=== PATIENT | male | born 1960 ===

== ENCOUNTER 2021-07-19 09:15 | Outpatient (REF) | payer BC, SELFPAY ==
[2021-07-19 10:40] LABS: Hematocrit 43.7 % (42-52); Hemoglobin 13.8 g/dl (14.0-18.0); Mean Corpuscular HGB Conc 31.6 g/dl (31.0-36.0); Mean Corpuscular Hemoglobin 30.1 pg (27.0-33.0); Mean Corpuscular Volume 95.2 fL (80-98); Mean Platelet Volume 9.7 fL (9.4-12.4); Platelet Count 209 X10*3/uL (160-400); Red Blood Count 4.59 X10*6/uL (4.60-5.80); Red Cell Distribution Width 11.6 % (11.0-16.0); White Blood Count 6.7 X10*3/uL (4.8-10.8)
[2021-07-19 10:43] LABS: Alanine Aminotransferase 19 U/L (0-40); Albumin Level 4.5 g/dL (3.5-5.0); Alkaline Phosphatase 75 U/L (39-117); Anion Gap 13 (12-20); Aspartate Amino Transferase 19 U/L (5-37); Bilirubin Total 0.7 mg/dL (0.0-1.0); Blood Urea Nitrogen 18 mg/dL (9-16); Calcium 9.7 mg/dL (8.4-10.2); Carbon Dioxide 27 mmol/L (22-29); Chloride 106 mmol/L (96-108); Cholesterol 282 mg/dL; Estimated Glomerular Filt Rate 59; Glucose Random 143 mg/dL (60-115); HDL Cholesterol 45 mg/dL; LDL Cholesterol Calculated 190 mg/dl; Potassium 5.4 mmol/L (3.3-5.1); Sodium 141 mmol/L (135-145); Total Protein 7.7 g/dL (6.5-8.0); Triglycerides 236 mg/dL
[2021-07-19 10:44] LABS: Creatinine Urine 209.55 mg/dL; Microalbum/Creatinine Ratio Ur 24.3 ug/mg cr
[2021-07-19 11:05] LABS: Prostate Specific Antigen 0.46 ng/mL (<0.05-4.0); TSH reflex Free T4 3.75 uIU/mL (0.32-4.0)
== END 2021-07-19 09:16 | disposition home or self-care (01) ==
LOC: HO.LAB 09:15
PROVIDERS: PCP Internal Medicine Geriatric Medicine; Visit Provider Internal Medicine Geriatric Medicine
DX: Z12.5 Encounter for screening for malignant neoplasm of prostate (principal); E03.9 Hypothyroidism, unspecified; I25.10 Atherosclerotic heart disease of native coronary artery without angina pectoris; I12.9 Hypertensive chronic kidney disease with stage 1 through stage 4 chronic kidney disease, or unspecified chronic kidney disease; E11.22 Type 2 diabetes mellitus with diabetic chronic kidney disease; N18.9 Chronic kidney disease, unspecified
CPT/HCPCS: 36415; 80053; 80061; 82043; 84153; 84443; 85027

== ENCOUNTER 2021-10-23 13:50 | Emergency (ER) | payer BC, SELFPAY ==
[2021-10-23 19:28] VITALS: BP 179/97; PULSE 60; RESP 18; TEMP 36.8; O2SAT 98; BMI 29.5
[2021-10-23 19:53] VITALS: BP 145/77; PULSE 57; RESP 17; TEMP 35.8; O2SAT 98
--- NOTE | 2021-10-23 20:46 | ED_ITS ---
HPI - Extremity Problem General Chief complaint: Extremity Problem Stated complaint: R ARM PAIN Time Seen by Provider: 10/23/21 19:42 Source: patient Mode of arrival: ambulatory Limitations: no limitations History of Present Illness HPI Narrative: 61-year-old male who presents emergency department for evaluation of right arm pain for 2 days. He states these had an intermittent cramping sensation in his right arm. He states that he gets 3 episodes per day. He states that the episodes last approximately 10 minutes. He states that the episodes are [id number] in intensity. He had no associated symptoms such as neck pain, jaw pain, chest pain, shortness of breath, dyspnea on exertion, swelling or discoloration of the arm, nausea, vomiting, numbness or weakness. He states that he took 1 Tylenol for the pain this did not help. He denies any recent injury. The patient states that he had a stroke and was treated at [facility] 3 years prior. He states that he had a stent placed in his right arm but is unclear why this was done. The patient denies having a cardiac stent or myocardial infarction however uncertain to me if he understands the procedure that he had a [facility]. He denied fever, chills, myalgias or arthralgias. Related Data Previous Rx's Medication Instructions Recorded cyclobenzaprine 10 mg tablet 10 mg PO TID PRN #15 tab 10/23/21 Allergies Allergy/AdvReac Type Severity Reaction Status Date / Time No Known Allergies Allergy Unverified 07/11/20 17:03 [No Known Allergies*] Review of Systems Review of Systems: Yes all other systems are reviewed and are negative [facility] Past Medical History [facility] Narrative: Past medical history: Diabetes mellitus, hypertension, stroke 3 years prior. Past surgical history: Question stent to his right arm. Social history: He denies tobacco use, he occasionally drinks alcohol, he denies drug use. Medical History Diabetes Social History Social History Advance Directives: Yes Advance Directives Information Provided: Yes Advance Directives on File: No Physical Exam Vital Signs: Vital Signs: Last Vital Signs Temp 96.4 F L 10/23/21 19:53 Pulse 57 10/23/21 19:53 Resp 17 10/23/21 19:53 BP 145/77 H 10/23/21 19:53 Pulse Ox 98 10/23/21 19:53 BMI result Body Mass Index 29.5 Const: General: cooperative and no acute distress Orientation/consciousness: oriented to person and oriented to place Limitations: no limitations HENMT: Head: Yes normal to inspection, Yes normocephalic and Yes atraumatic Ears: external ears normal General nose exam: Normal external nose present Face and sinus: Yes normal facial exam Mouth: Normal oral and palatal mucosa present Throat: Yes posterior oropharynx normal Eyes: General: appearance normal, both eyes and all related structures Pupils: Equal, round and reactive pupils present Neck: Neck: Yes normal visual inspection, Yes no lymphadenopathy, Yes trachea midline and Yes supple Chest: Chest palpation & inspection: normal inspection of the chest and normal palpation of entire chest wall Resp: Effort & Inspection: normal respiratory effort and able to speak in complete sentences Auscultation: clear to auscultation bilaterally Cardio: Rate: regular rate Rhythm: regular rhythm Heart sounds: S1 normal heart sound present, S2 normal heart sound present and no murmurs GI: Inspection: Yes normal to inspection Palpation (GI): Soft to palpation, nontender and no guarding Auscultation: normal bowel sounds : General: Yes no CVA tenderness Back/Spine/Pelvis: Back: no CVA tenderness Skin: General skin exam: no rashes or lesions noted Neuro: General: oriented to person and oriented to place Cranial nerves: Yes CN's II-XII intact bilaterally and Yes Equal, round and reactive pupils present Cognition (Neuro): normal cognition Motor exam (neuro): 5/5 motor strength present throughout Extrem: Other: Both upper extremities appear to be normal, there is no swelling, erythema or increased warmth. Patient has normal peripheral pulses. He has full range of motion of all of the joints of both upper extremities with no pain or discomfort. He has no tenderness palpation of the muscles of the upper extremities. Psych: Appearance: grossly normal Speech and movement: Normal speech and movement present Affect: normal affect Attitude: cooperative Thought process: Normal thought process present Thought content: Normal thought content present Course Course Course Narrative: 61-year-old male who presents emergency department for evaluation with cramping in sensation to his right arm that he has had for approximately 2 days. He states that the cramping is intermittent he gets approximately 3 episodes per day lasting approximately 10 minutes. He denies any injury knee has no significant associated symptoms. His vital signs initially revealed an elevated blood pressure of 179/97 and repeat blood pressure was 145/77. At this time, I do not have a clear etiology for the patient's pain, he may be having muscle spasms. Patient was advised to take Tylenol for the pain was prescribe cyclobenzaprine. He was given printed and verbal instructions and discharged home. Discharge Plan Discharge Clinical Impression: Arm pain, right Patient Disposition: Home, Self-Care Instructions: Arm Pain (ED) Additional Instructions: Your examination was normal. At this time I do not have a clear cause for your pain. I do not think that you have an infection or a blood clot of your arm. I do not think that this pain is being caused by your heart or your neck. Take Tylenol (acetaminophen) 500 mg pills, 2 pills every 4 to 6 hours as needed for pain. Take Flexeril (cyclobenzaprine) 10 mg pills, 1 pill every 6-8 hours as needed for pain or spasm. This medication will make you sleepy. Do not drive or work while taking this medication. Follow-up with your doctor in 2 days. Please return to the emergency department if your symptoms get worse or if you develop any symptoms that are concerning to you. Prescriptions: New cyclobenzaprine 10 mg tablet 10 mg PO TID PRN (Reason: pain, muscle spasm) Qty: 15 RF: 0
== END 2021-10-23 21:15 | disposition home or self-care (01) ==
PROVIDERS: Emergency Provider Emergency Medicine Emergency Medical Services; PCP Internal Medicine Geriatric Medicine
DX: M79.601 Pain in right arm (principal)
CPT/HCPCS: 99283; 99284

== ENCOUNTER 2023-08-19 10:18 | Outpatient (REF) | payer BC, SELFPAY ==
[2023-08-19 11:40] LABS: MANUAL DIFF FLAG NO
[2023-08-19 11:42] LABS: Basophils Percent Auto 0.6 % (0-2); Eosinophils Absolute Auto 0.2 X10*3/uL (0.0-0.4); Eosinophils Percent Auto 3.1 % (0-4); Hemoglobin 13.6 g/dl (14.0-18.0); Imm Gran Abs Auto 0.02 X10*3/uL (0.00-0.03); Imm Gran Pct Auto 0.3 % (0.0-0.4); Lymphocytes Absolute Auto 2.3 X10*3/uL (1.2-4.9); Lymphocytes Percent Auto 34.8 % (20-40); Mean Corpuscular HGB Conc 32.4 g/dl (31.0-36.0); Mean Corpuscular Hemoglobin 30.3 pg (27.0-33.0); Mean Corpuscular Volume 93.5 fL (80.0-98.0); Mean Platelet Volume 9.6 fL (9.4-12.4); Monocytes Absolute Auto 0.6 X10*3/uL (0.1-1.2); Monocytes Percent Auto 8.6 % (2-11); Neutrophils Absolute Auto 3.4 x10*3/uL (2.0-8.3); Neutrophils Percent Auto 52.6 % (45-73); Platelet Count 198 X10*3/uL (160-400); Red Blood Count 4.49 X10*6/uL (4.60-5.80); Red Cell Distribution Width 11.8 % (11.0-16.0); White Blood Count 6.5 X10*3/uL (4.8-10.8)
[2023-08-19 11:53] LABS: Appearance Urine Clear; Color Urine Yellow; Glucose Urine UA Negative (Negative); Leukocyte Esterase Urine Trace (Negative); Nitrite Urine Negative (Negative); PH 6.5 (5.0-9.0); UMIC TRIGGER UACC YES; Urine Blood Negative (Negative); Urine Ketones Negative (Negative); Urine Protein Trace mg/dL (Neg-Trace)
[2023-08-19 11:58] LABS: Bacteria Urine None Seen (None Seen); Hyaline Casts Urine 0-2 /LPF (0-2); RBC Urine 0-2 /HPF (0-2); Squamous Epithelial Cell Urine 0-2 /HPF (0-2); WBC Urine 0-5 /HPF (0-5)
[2023-08-19 12:17] LABS: Alanine Aminotransferase 25 U/L (0-40); Albumin Level 4.4 g/dL (3.5-5.0); Alkaline Phosphatase 72 U/L (39-117); Anion Gap 13 (12-20); Aspartate Amino Transferase 24 U/L (5-37); Bilirubin Total 0.8 mg/dL (0.0-1.0); Blood Urea Nitrogen 16 mg/dL (9-16); Calcium 9.8 mg/dL (8.4-10.2); Carbon Dioxide 28 mmol/L (22-29); Chloride 103 mmol/L (96-108); Cholesterol 271 mg/dL (<200); Estimated Glomerular Filt Rate > 60; Glucose Random 130 mg/dL (60-115); HDL Cholesterol 40 mg/dL (>40); LDL Cholesterol Calculated 181 mg/dL (<100); Potassium 4.1 mmol/L (3.3-5.1); Sodium 140 mmol/L (135-145); Triglycerides 252 mg/dL (<150)
[2023-08-19 12:23] LABS: TSH reflex Free T4 5.82 uIU/mL (0.32-4.0)
[2023-08-19 12:25] LABS: Prostate Specific Antigen 0.55 ng/mL (<0.05-4.0)
[2023-08-19 12:59] LABS: Free T4 (Free Thyroxine) 0.78 ng/dL (0.71-1.85)
== END 2023-08-19 10:19 | disposition home or self-care (01) ==
LOC: HO.HHCL 10:18
PROVIDERS: Visit Provider Internal Medicine Geriatric Medicine
DX: Z12.5 Encounter for screening for malignant neoplasm of prostate (principal); I10 Essential (primary) hypertension; E03.9 Hypothyroidism, unspecified; E11.9 Type 2 diabetes mellitus without complications; Z28.20 Immunization not carried out because of patient decision for unspecified reason
CPT/HCPCS: 36415; 80053; 80061; 81001; 84153; 84439; 84443; 85025

== ENCOUNTER 2023-11-17 10:10 | Outpatient (REF) | payer BC, SELFPAY ==
[2023-11-17 11:52] LABS: Anion Gap 13 (12-20); Blood Urea Nitrogen 12 mg/dL (9-16); Calcium 9.4 mg/dL (8.4-10.2); Carbon Dioxide 26 mmol/L (22-29); Chloride 103 mmol/L (96-108); Estimated Glomerular Filt Rate > 60; Glucose Random 143 mg/dL (60-115); Potassium 4.2 mmol/L (3.3-5.1); Sodium 138 mmol/L (135-145)
[2023-11-17 12:22] LABS: Creatinine Urine 154.61 mg/dL; Microalbum/Creatinine Ratio Ur 32.3 ug/mg cr (<30)
== END 2023-11-17 10:11 | disposition home or self-care (01) ==
LOC: HO.HHCL 10:10
PROVIDERS: Visit Provider Internal Medicine Geriatric Medicine
DX: R80.9 Proteinuria, unspecified (principal); I10 Essential (primary) hypertension
CPT/HCPCS: 36415; 80048; 82043; 82570

== ENCOUNTER 2024-02-25 11:12 | Outpatient (REF) | payer BC, SELFPAY ==
[2024-02-25 14:00] LABS: Estimated Average Glucose 128 mg/dL; Hemoglobin A1c % 6.1 % (<6.0)
[2024-02-25 14:01] LABS: Estimated Average Glucose 128 mg/dL; Hemoglobin A1c % 6.1 % (<6.0)
[2024-02-25 14:20] LABS: Alanine Aminotransferase 19 U/L (0-40); Albumin Level 4.3 g/dL (3.5-5.0); Alkaline Phosphatase 66 U/L (39-117); Anion Gap 13 (12-20); Aspartate Amino Transferase 21 U/L (5-37); Bilirubin Total 0.7 mg/dL (0.0-1.0); Blood Urea Nitrogen 15 mg/dL (9-16); Calcium 9.7 mg/dL (8.4-10.2); Carbon Dioxide 27 mmol/L (22-29); Chloride 103 mmol/L (96-108); Estimated Glomerular Filt Rate > 60; Glucose Random 139 mg/dL (60-115); Potassium 4.9 mmol/L (3.3-5.1); Sodium 138 mmol/L (135-145); TSH reflex Free T4 15.75 uIU/mL (0.32-4.0)
[2024-02-25 14:56] LABS: Free T4 (Free Thyroxine) 0.55 ng/dL (0.71-1.85)
== END 2024-02-25 11:13 | disposition home or self-care (01) ==
LOC: HO.HHCL 11:12
PROVIDERS: Visit Provider Internal Medicine Geriatric Medicine
DX: E11.9 Type 2 diabetes mellitus without complications (principal); I10 Essential (primary) hypertension; I25.10 Atherosclerotic heart disease of native coronary artery without angina pectoris; E03.9 Hypothyroidism, unspecified; Z87.39 Personal history of other diseases of the musculoskeletal system and connective tissue
CPT/HCPCS: 36415; 80053; 83036; 84439; 84443

== ENCOUNTER 2024-05-31 10:09 | Outpatient (REF) | payer BC, SELFPAY ==
[2024-05-31 11:17] LABS: MANUAL DIFF FLAG NO
[2024-05-31 11:26] LABS: Basophils Percent Auto 0.5 % (0-2); Eosinophils Absolute Auto 0.2 X10*3/uL (0.0-0.4); Eosinophils Percent Auto 2.8 % (0-4); Hematocrit 40.4 % (42.0-52.0); Hemoglobin 13.1 g/dl (14.0-18.0); Imm Gran Abs Auto 0.03 X10*3/uL (0.00-0.03); Imm Gran Pct Auto 0.5 % (0.0-0.4); Lymphocytes Absolute Auto 1.9 X10*3/uL (1.2-4.9); Lymphocytes Percent Auto 30.4 % (20-40); Mean Corpuscular HGB Conc 32.4 g/dl (31.0-36.0); Mean Corpuscular Hemoglobin 30.5 pg (27.0-33.0); Mean Platelet Volume 9.1 fL (9.4-12.4); Monocytes Absolute Auto 0.6 X10*3/uL (0.1-1.2); Monocytes Percent Auto 8.7 % (2-11); Neutrophils Absolute Auto 3.6 x10*3/uL (2.0-8.3); Neutrophils Percent Auto 57.1 % (45-73); Platelet Count 207 X10*3/uL (160-400); Red Cell Distribution Width 11.7 % (11.0-16.0); White Blood Count 6.3 X10*3/uL (4.8-10.8)
[2024-05-31 11:42] LABS: Appearance Urine Clear; Color Urine Yellow; Glucose Urine UA 100 mg/dL (Negative); Leukocyte Esterase Urine Negative (Negative); Nitrite Urine Negative (Negative); PH 5.5 (5.0-9.0); Urine Blood Negative (Negative); Urine Ketones Negative (Negative); Urine Protein Trace mg/dL (Neg-Trace)
[2024-05-31 11:48] LABS: Bacteria Urine None Seen (None Seen); Hyaline Casts Urine 0-2 /LPF (0-2); RBC Urine 0-2 /HPF (0-2); Squamous Epithelial Cell Urine 0-2 /HPF (0-2); WBC Urine 0-5 /HPF (0-5)
[2024-05-31 11:56] LABS: Anion Gap 11 (12-20); Blood Urea Nitrogen 16 mg/dL (9-16); Calcium 9.8 mg/dL (8.4-10.2); Carbon Dioxide 31 mmol/L (22-29); Chloride 103 mmol/L (96-108); Cholesterol 166 mg/dL (<200); Estimated Glomerular Filt Rate > 60; Glucose Random 153 mg/dL (60-115); HDL Cholesterol 39 mg/dL (>40); LDL Cholesterol Calculated 65 mg/dL (<100); Potassium 4.7 mmol/L (3.3-5.1); Sodium 140 mmol/L (135-145); Triglycerides 310 mg/dL (<150)
[2024-05-31 12:01] LABS: TSH reflex Free T4 20.08 uIU/mL (0.32-4.0)
[2024-05-31 13:12] LABS: Free T4 (Free Thyroxine) 0.51 ng/dL (0.71-1.85)
== END 2024-05-31 10:10 | disposition home or self-care (01) ==
LOC: HO.HHCL 10:09
PROVIDERS: Visit Provider Internal Medicine Geriatric Medicine
DX: I10 Essential (primary) hypertension (principal); E11.9 Type 2 diabetes mellitus without complications; Z87.898 Personal history of other specified conditions
CPT/HCPCS: 36415; 80048; 80061; 81001; 84439; 84443; 85025

== ENCOUNTER 2024-06-09 07:30 | Outpatient (REF) | payer BC, SELFPAY ==
--- NOTE | ~2024-06-09 | US_ITS ---
EXAMINATION: US RETROPERITONEAL COMPLETE (RENAL) CLINICAL INFORMATION: Gross hematuria.. COMPARISON: Renal ultrasound dated 04/28/2018; CT abdomen and pelvis dated 09/12/2010. TECHNIQUE: Real-time imaging of the kidneys and bladder. FINDINGS: RIGHT KIDNEY: 13.4 x 5.3 x 4.6 cm (SAG x AP x TRV). The kidney is normal in size, contour, and echogenicity. Renal cortical thickness is normal. No calculi or focal parenchymal lesions. No hydronephrosis. At the upper pole, a 3.4 cm benign, simple cyst is seen. At the interpolar aspect laterally, a 6 mm benign, simple cyst is seen. These require no imaging follow-up. LEFT KIDNEY: 11.2 x 5.5 x 4.0 cm (SAG x AP x TRV). The kidney is normal in size, contour, and echogenicity. Renal cortical thickness is normal. No calculi or focal parenchymal lesions. No hydronephrosis. US/US renal BI IMPRESSION: Unremarkable examination. No renal mass, calculus or hydronephrosis is seen bilaterally. Electronically signed by: Balta Isaacs MD 06/26/2024 10:28 PM EDT Workstation: -WS
== END 2024-06-09 07:31 | disposition home or self-care (01) ==
LOC: HO.US 07:30
PROVIDERS: PCP Internal Medicine Geriatric Medicine; Visit Provider Internal Medicine Geriatric Medicine
DX: Z87.898 Personal history of other specified conditions (principal)
CPT/HCPCS: 76775

== ENCOUNTER 2024-08-02 07:49 | Outpatient (REF) | payer BC, SELFPAY ==
[2024-08-02 16:42] LABS: Urine Cytology See Pathology rpt
== END 2024-08-02 07:50 | disposition home or self-care (01) ==
LOC: HO.LNP 07:49
PROVIDERS: PCP Internal Medicine Geriatric Medicine; Visit Provider Nurse Practitioner Family
DX: Z13.9 Encounter for screening, unspecified (principal)
CPT/HCPCS: 81003; 88112

== ENCOUNTER 2024-08-02 07:49 | Outpatient (AMB) | payer BC, SELFPAY ==
--- NOTE | 2024-08-02 08:05 | MHC.OFFVIS ---
Intake Visit Reasons: history of gross hematuria Intake Note: New Patient presents for initial visit for gross hematuria Urology Medications: none Blood Thinner: none Hand Rigger Required: No Hand Rigger Services: Hand Rigger Present Hand Rigger Name: Kyle LemaZACH Accompanied by: Self / Same As Patient Allergies No Known Allergies [No Known Allergies*] Allergy (Unverified 08/02/24 08:43) Medication List - Last Reconciled 08/02/24 by JUICE Costello aspirin 81 mg PO DAILY evolocumab (Repatha SureClick) 140 mg subcut Q2W levothyroxine 50 mcg PO QAM losartan 25 mg PO DAILY metoprolol tartrate 25 mg PO BID HPI Comments Details: Isidro is a very pleasant 64-year-old Azeri-speaking male patient of Dr. Hernadez. He has a past medical history of diabetes. He presents to the office today as a new patient for gross hematuria. In discussion with the patient today he reports 3-4 months ago experiencing episodes of gross hematuria for 2-3 days. 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 When asked he does report a previous history of nicotine dependence. He reports smoking for approximately a 10-15 years on and off and smoked approximately half a pack of cigarettes per day. He reports having quit smoking approximately 25 years ago. He denies any known workplace chemical exposure. He reports no further episodes of gross hematuria since 3-4 months ago. We discussed at length potential causes of gross hematuria. We discussed workup to include urine cytology, in office cystoscopy, and CT urogram. He otherwise denies urinary urgency, urinary frequency, incontinence, nocturia, dysuria, foul smelling urine, changes to urinary stream, flank pain, fever, and or chills. He is happy with his current voiding parameters. I discussed reasons for blood in the urine may include but are not limited to kidney stones, cancer in the urinary tract, BPH, kidney stone disease or inflammatory conditions of the urinary tract. I have discussed workup to include cystoscopy evaluation. He otherwise offers no other issues or concerns at this time. In review of patient's chart it appears PSAs are as follows: 07/15 0.5, 08/16 0.6 PFSH Medical History Diabetes Review of Systems Const All systems reviewed & are unremarkable except as noted in HPI and below Physical Exam Const General: cooperative, healthy appearing, comfortable, no acute distress, well developed, alert and awake Orientation/consciousness: patient oriented x3 Limitations: no limitations HEENT Head: Yes normal to inspection, Yes normocephalic and Yes atraumatic Ears: hearing grossly normal bilaterally Eyes General: appearance normal, both eyes and all related structures Neck Neck: Yes normal visual inspection and Yes trachea midline Chest Chest palpation & inspection: normal inspection of the chest Resp Effort & Inspection: normal respiratory effort and able to speak in complete sentences Cardio Rate: regular rate GI Inspection: Yes normal to inspection General: Yes no CVA tenderness Back/Spine/Pelvis Back: no CVA tenderness Skin General skin exam: no rashes or lesions noted Neuro General: patient oriented x3 Extrem General: Yes normal to inspection Psych Appearance: grossly normal and well kempt Mental Status: mental status grossly normal Speech and movement: Normal speech and movement present and Clear speech present Affect: normal affect Attitude: cooperative Thought process: Normal thought process present Thought content: Normal thought content present Insight: Fair insight present (Psych) Judgement: Fair judgement present (Psych) Results AMB Urinalysis, Automated UA Leukoctes 0 Pipo/uL Last Edit by [employer] Sreekanth on 08/02/24 08:20 UA Nitrite Last Edit by Bria Stack on 08/02/24 08:20 UA Urobilinogen 0.2 mg/dL Last Edit by [employer] Stack on 08/02/24 08:20 UA Protein 0 mg/dL Last Edit by [employer] Stack on 08/02/24 08:20 UA pH 5.5 Last Edit by [employer] Stack on 08/02/24 08:20 UA Blood 10 Martin/uL Last Edit by [employer] Stack on 08/02/24 08:20 UA Specific [place] 1.010 Last Edit by [employer] Stack on 08/02/24 08:20 UA Ketone Last Edit by [employer] Stack on 08/02/24 08:20 UA Bilirubin 0 mg/dL Last Edit by Bria Stack on 08/02/24 08:20 UA Glucose 0 mg/dL Last Edit by [employer] Stack on 08/02/24 08:20 Results Reviewed Results Reviewed: Laboratory Last Values Urine pH (Auto) 5.5 08/02/24 08:10 Specific [place] (Auto) 1.010 08/02/24 08:10 Urine Protein (Auto) 0 mg/dL 08/02/24 08:10 Glucose (UA)(Auto) 0 mg/dL 08/02/24 08:10 Urine Blood (Auto) 10 Martin/uL 08/02/24 08:10 Urine Bilirubin (Auto) 0 mg/dL 08/02/24 08:10 Urine Urobilinogen (Auto) 0.2 mg/dL 08/02/24 08:10 Leukocyte Esterase (Auto) 0 Pipo/uL 08/02/24 08:10 Assessment & Plan Assessment & Plan (1) Gross hematuria: Code(s): R31.0 - Gross hematuria Category: Medical (2) History of nicotine dependence: Code(s): Z87.891 - Personal history of nicotine dependence Category: Medical Plan In office urinalysis results reviewed with the patient today; as noted above; will send for urine cytology. Discussed at length potential causes of gross hematuria as well as further workup; risks and benefits of these interventions were discussed. Will obtain CT urogram for further assessment evaluation. BUN and creatinine ordered for imaging. Will obtain PSA. Patient currently denies any bothersome urinary issues. He reports be happy with current voiding parameters. Follow-up in office cystoscopy with imaging and labs to be completed prior; or sooner with any issues, concerns, and or questions. Orders: Orders Blood Urea Nitrogen Today R31.0 - Gross hematuria Creatinine Today R31.0 - Gross hematuria Prostate Specific Antigen Today R31.0 - Gross hematuria AMB Urinalysis Automated Today Z13.9 - Encounter for screening, unspecified Urine Cytology Today Z13.9 - Encounter for screening, unspecified CT urogram Today R31.0 - Gross hematuria Patient Instructions: The patient had an opportunity to ask questions regarding the treatment plan. All questions were answered. Physical exam, labs, and imaging were discussed and reviewed in detail. As well as risks, benefits, and discussion of treatment choices. No major barriers to understanding were identified. The patient expressed understanding and agreement with the above treatment plan. The patient was made aware they should contact our office by phone for worsening of their current condition, the appearance of new symptoms, or with any questions or concerns. Compliance is encouraged with any medications and follow up testing that is ordered. It is a privilege to be allowed the opportunity to participate in? your urological care.? Again, if you have any questions or concerns If you have any questions or concerns please do not hesitate to contact me. The office is [phone]. This note is constructed using voice recognition software. While every effort has been made to ensure accuracy lab manager errors may have been included. Yours sincerely, JUICE Costello Coding Level of Care Code New Pt Level 3 (47560) Diagnoses Gross hematuria R31.0 History of nicotine dependence Z87.891
== END 2024-08-02 08:50 | disposition home or self-care (01) ==
PROVIDERS: PCP Internal Medicine Geriatric Medicine; Visit Provider Nurse Practitioner Family
DX: R31.0 Gross hematuria (principal); Z87.891 Personal history of nicotine dependence; Z13.9 Encounter for screening, unspecified
CPT/HCPCS: 99203

== ENCOUNTER 2024-09-06 09:52 | Outpatient (REF) | payer BC, SELFPAY ==
[2024-09-06 10:52] LABS: MANUAL DIFF FLAG NO
[2024-09-06 11:04] LABS: Basophils Percent Auto 0.6 % (0-2); Eosinophils Absolute Auto 0.1 X10*3/uL (0.0-0.4); Eosinophils Percent Auto 2.3 % (0-4); Hematocrit 40.4 % (42.0-52.0); Hemoglobin 13.1 g/dl (14.0-18.0); Imm Gran Abs Auto 0.02 X10*3/uL (0.00-0.03); Imm Gran Pct Auto 0.3 % (0.0-0.4); Lymphocytes Absolute Auto 1.9 X10*3/uL (1.2-4.9); Lymphocytes Percent Auto 31.3 % (20-40); Mean Corpuscular HGB Conc 32.4 g/dl (31.0-36.0); Mean Corpuscular Hemoglobin 30.9 pg (27.0-33.0); Mean Corpuscular Volume 95.3 fL (80.0-98.0); Mean Platelet Volume 9.7 fL (9.4-12.4); Monocytes Absolute Auto 0.6 X10*3/uL (0.1-1.2); Monocytes Percent Auto 9.4 % (2-11); Neutrophils Absolute Auto 3.5 x10*3/uL (2.0-8.3); Neutrophils Percent Auto 56.1 % (45-73); Platelet Count 209 X10*3/uL (160-400); Red Blood Count 4.24 X10*6/uL (4.60-5.80); Red Cell Distribution Width 11.9 % (11.0-16.0); White Blood Count 6.2 X10*3/uL (4.8-10.8)
[2024-09-06 11:20] LABS: Alanine Aminotransferase 25 U/L (0-40); Albumin Level 4.2 g/dL (3.5-5.0); Alkaline Phosphatase 64 U/L (39-117); Anion Gap 11 (12-20); Aspartate Amino Transferase 30 U/L (5-37); Bilirubin Total 0.7 mg/dL (0.0-1.0); Blood Urea Nitrogen 21 mg/dL (9-16); Carbon Dioxide 29 mmol/L (22-29); Chloride 104 mmol/L (96-108); Cholesterol 178 mg/dL (<200); Estimated Glomerular Filt Rate 58; Glucose Random 152 mg/dL (60-115); HDL Cholesterol 41 mg/dL (>40); LDL Cholesterol Calculated 89 mg/dL (<100); Potassium 4.3 mmol/L (3.3-5.1); Sodium 140 mmol/L (135-145); Total Protein 7.5 g/dL (6.5-8.0); Triglycerides 241 mg/dL (<150)
[2024-09-06 11:36] LABS: Prostate Specific Antigen 0.42 ng/mL (<0.05-4.0)
[2024-09-06 11:38] LABS: TSH reflex Free T4 12.47 uIU/mL (0.32-4.0)
[2024-09-06 12:59] LABS: Free T4 (Free Thyroxine) 0.71 ng/dL (0.71-1.85)
== END 2024-09-06 09:53 | disposition home or self-care (01) ==
LOC: HO.HHCL 09:52
PROVIDERS: Nurse Practitioner Family; Visit Provider Internal Medicine Geriatric Medicine
DX: Z12.11 Encounter for screening for malignant neoplasm of colon (principal); E03.9 Hypothyroidism, unspecified; E11.9 Type 2 diabetes mellitus without complications; Z86.79 Personal history of other diseases of the circulatory system; E31.0 Autoimmune polyglandular failure; Z12.5 Encounter for screening for malignant neoplasm of prostate
CPT/HCPCS: 36415; 80053; 80061; 84153; 84439; 84443; 85025

== ENCOUNTER 2024-09-18 10:20 | Outpatient (AMB) | payer BC, SELFPAY ==
--- NOTE | 2024-09-18 06:25 | MHC.OFFVIS ---
Intake Visit Reasons: cysto/labs Intake Note: Patient is present for Cystoscopy/LABS Urology Medication:NONE Antibiotic Allergy:NONE Blood Thinner:ASPIRIN Lot:[id number] Exp:08/28/27 Product Promoter Sales Person Required: No Product Promoter Sales Person Name: [id number] Allergies No Known Allergies [No Known Allergies*] Allergy (Verified 09/18/24 10:32) HPI Comments Details: 09/18/24-- Here for cysto-Cystoscopy findings: prostatic urethra mild obstructive, bilobar enlargement, bulbous urethra WNL, no suspicious bladder lesions visualized. Urine cytology- Negative. CT urogram pending. 06/09/24-- US renal - WNL 08/02/24--Isidro is a very pleasant 64-year-old Setswana-speaking male patient of Dr. Hernadez. He has a past medical history of diabetes. He presents to the office today as a new patient for gross hematuria. In discussion with the patient today he reports 3-4 months ago experiencing episodes of gross hematuria for 2-3 days. 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 When asked he does report a previous history of nicotine dependence. He reports smoking for approximately a 10-15 years on and off and smoked approximately half a pack of cigarettes per day. He reports having quit smoking approximately 25 years ago. He denies any known workplace chemical exposure. He reports no further episodes of gross hematuria since 3-4 months ago. We discussed at length potential causes of gross hematuria. We discussed workup to include urine cytology, in office cystoscopy, and CT urogram. He otherwise denies urinary urgency, urinary frequency, incontinence, nocturia, dysuria, foul smelling urine, changes to urinary stream, flank pain, fever, and or chills. He is happy with his current voiding parameters. I discussed reasons for blood in the urine may include but are not limited to kidney stones, cancer in the urinary tract, BPH, kidney stone disease or inflammatory conditions of the urinary tract. I have discussed workup to include cystoscopy evaluation. He otherwise offers no other issues or concerns at this time. In review of patient's chart it appears PSAs are as follows: 07/15 0.5, 08/16 0.6 PFSH Medical History Diabetes Office Procedures Cystoscopy Consent Discussed risk and benefit or proposed procedure with the patient. Information consent for procedure given to the patient. Discussed technical aspects, risks, benefits and alternatives in full. Addressed all of the patient's questions and concerns regarding the procedure. The patient demonstrated knowledge and understanding. They wish to proceed with this procedure. Preparation The patient was prepped in the usual manner. A ginger farmer was present and in the room. Genitalia was prepped with betadine solution in a sterile manner. Lidocaine Jelly 2% was placed into the urethra and 16Fr flexible Olympus cystoscope was inserted into the meatus after adequate lubrication. Procedure Time out per protocol performed. Bladder Inspection Bladder Inspection: The bladder was inspected in its entirety with utilization retroflexion displaying: Tumor(s): no suspicious bladder lesions visualized Trabeculation: Mild Mucosal Erthema: NA Orifices: normal shape and position Urethra: normal Cystoscopy findings: prostatic urethra mild obstructive, bilobar enlargement, bulbous urethra WNL, no suspicious bladder lesions visualized [id number] DISPOSABLE SCOPE URO-G FLEXIBLE SCOPE Procedure code (CPT) selection complete Office Meds lidocaine HCl 2 % mucosal jelly in applicator Performing Provider: Shahla Alan MD Performing Location: [facility] Documented (not given) by: Shahla Alan MD on 09/18/24 11:37 Dose Route Admin Location Dispensed Lot Number Expiration Date NDC Content Management Consultant 10 mL intra-urethral mL naproxen 500 mg tablet Performing Provider: Shahla Alan MD Performing Location: [facility] Documented (not given) by: Shahla Alan MD on 09/18/24 11:37 Dose Route Admin Location Dispensed Lot Number Expiration Date NDC Content Management Consultant 500 mg PO tab ciprofloxacin HCl 500 mg tablet Performing Provider: Shahla Alan MD Performing Location: [facility] Documented (not given) by: Shahla Alan MD on 09/18/24 11:37 Dose Route Admin Location Dispensed Lot Number Expiration Date NDC Content Management Consultant 500 mg PO tab Results AMB Urinalysis, Automated UA Leukoctes 0 Pipo/uL Last Edit by RBOINA Nuñez on 09/18/24 10:42 UA Nitrite Negative Last Edit by ROBINA Nuñez on 09/18/24 10:42 UA Urobilinogen 0.2 mg/dL Last Edit by ROBINA Nuñez on 09/18/24 10:42 UA Protein 15 mg/dL Last Edit by ROBINA Nuñez on 09/18/24 10:42 UA pH 5.5 Last Edit by Zee Gonzalez CCM on 09/18/24 10:42 UA Blood 10 Martin/uL Last Edit by ROBINA Nuñez on 09/18/24 10:42 UA Specific [place] 1.030 Last Edit by Zee Gonzalez CCM on 09/18/24 10:42 UA Ketone Negative Last Edit by ROBINA Nuñez on 09/18/24 10:42 UA Bilirubin 0 mg/dL Last Edit by ROBINA Nuñez on 09/18/24 10:42 UA Glucose 500 mg/dL Last Edit by ROBINA Nuñez on 09/18/24 10:42 Results Reviewed Results Reviewed: Laboratory Last Values Urine pH (Auto) 5.5 09/18/24 10:41 Specific [place] (Auto) 1.030 09/18/24 10:41 Urine Protein (Auto) 15 mg/dL 09/18/24 10:41 Glucose (UA)(Auto) 500 mg/dL 09/18/24 10:41 Urine Ketones (Auto) Negative 09/18/24 10:41 Urine Blood (Auto) 10 Martin/uL 09/18/24 10:41 Urine Nitrite (Auto) Negative 09/18/24 10:41 Urine Bilirubin (Auto) 0 mg/dL 09/18/24 10:41 Urine Urobilinogen (Auto) 0.2 mg/dL 09/18/24 10:41 Leukocyte Esterase (Auto) 0 Pipo/uL 09/18/24 10:41 Collected: 08/02/24 Location: [facility] Received: 08/03/24 Diagnosis Urine: Negative for high-grade urothelial carcinoma. COMMENT: Examination of a monolayer preparation slide shows many benign squamous cells, occasional benign urothelial cells, few inflammatory cells and rare red blood cells. Clinical History Encounter for screening Material Received Urine Gross Description Received is 47 cc of slightly cloudy yellow fluid from which a ThinPrep slide is prepared. Date of Service: 06/09/24 US RETROPERITONEAL COMPLETE (RENAL) CLINICAL INFORMATION: Gross hematuria.. COMPARISON: Renal ultrasound dated 04/28/2018; CT abdomen and pelvis dated 09/12/2010. TECHNIQUE: Real-time imaging of the kidneys and bladder. FINDINGS: RIGHT KIDNEY: 13.4 x 5.3 x 4.6 cm (SAG x AP x TRV). The kidney is normal in size, contour, and echogenicity. Renal cortical thickness is normal. No calculi or focal parenchymal lesions. No hydronephrosis. At the upper pole, a 3.4 cm benign, simple cyst is seen. At the interpolar aspect laterally, a 6 mm benign, simple cyst is seen. These require no imaging follow-up. LEFT KIDNEY: 11.2 x 5.5 x 4.0 cm (SAG x AP x TRV). The kidney is normal in size, contour, and echogenicity. Renal cortical thickness is normal. No calculi or focal parenchymal lesions. No hydronephrosis. IMPRESSION: Unremarkable examination. No renal mass, calculus or hydronephrosis is seen bilaterally. Assessment & Plan Assessment & Plan (1) Gross hematuria: Code(s): R31.0 - Gross hematuria Category: Medical (2) History of nicotine dependence: Code(s): Z87.891 - Personal history of nicotine dependence Category: Medical Plan Cystoscopy findings: prostatic urethra mild obstructive, bilobar enlargement, bulbous urethra WNL, no suspicious bladder lesions visualized. Urine cytology- Negative. CT urogram pending. 06/09/24-- US renal - WNL Orders: Orders AMB Cystoscopy 09/18/24 R31.0 - Gross hematuria, Z87.891 - Personal history of nicotine dependence CT urogram Today R31.0 - Gross hematuria AMB Urinalysis Automated 09/18/24 Z13.9 - Encounter for screening, unspecified Medications: New lidocaine HCl 2% 10 mL intra-urethral ONCE 2 applicators 0RF R31.0 - Gross hematuria, Z87.891 - Personal history of nicotine dependence ciprofloxacin HCl 500 mg PO ONCE 1 tab 0RF R31.0 - Gross hematuria, Z87.891 - Personal history of nicotine dependence naproxen 500 mg PO ONCE 1 tab 0RF R31.0 - Gross hematuria, Z87.891 - Personal history of nicotine dependence Coding Level of Care Code Procedure Only Diagnoses Gross hematuria R31.0 History of nicotine dependence Z87.891 CPT Codes Cystoscopy - CPT: 29111-Cuciegexeo ([id number])
== END 2024-09-18 12:03 | disposition home or self-care (01) ==
PROVIDERS: PCP Internal Medicine Geriatric Medicine; Visit Provider Urology
DX: R31.0 Gross hematuria (principal); Z13.9 Encounter for screening, unspecified
CPT/HCPCS: 52000

== ENCOUNTER → 2024-09-18 10:20 | Outpatient (BNVA) | payer BC, SELFPAY | PROVIDERS: PCP Internal Medicine Geriatric Medicine; Visit Provider Urology | DX: R31.0 Gross hematuria (principal); Z87.891 Personal history of nicotine dependence | CPT/HCPCS: 52000; 81003 ==

== ENCOUNTER 2024-09-25 08:19 | Outpatient (REF) | payer BC, SELFPAY ==
--- NOTE | ~2024-09-25 | CT_ITS ---
EXAMINATION: CT ABDOMEN AND PELVIS WITHOUT AND WITH CONTRAST CLINICAL INFORMATION: Gross hematuria. COMPARISON: September 12, 2010. TECHNIQUE: Noncontrast CT of the abdomen and pelvis is performed followed by split bolus contrast-enhanced images using 85 mL Omnipaque 350 contrast. Postcontrast imaging is performed during the combined nephrogram and excretion phase. Sagittal and coronal reformatted images were obtained on the technologist's workstation for both the precontrast and postcontrast phases. This CT examination was performed using dose optimization techniques as appropriate, variously including the following: *Automated exposure control *Adjustment of mA and/or kV according to patient size (this includes techniques or standardized protocols for targeted exams where dose is matched to indication/reason for exam; i.e. extremities or head) *Use of iterative reconstruction technique DLP: 759 mGy-cm FINDINGS: LUNG BASES: The lung bases appear clear, with no evidence of inflammation or nodules. Heart normal in size. Partially imaged coronary arterial calcification. No pericardial effusion. LIVER, GALLBLADDER, AND BILIARY TREE: Suspect mild fatty infiltration of the liver. The liver appears unremarkable in size and shape. No focal hepatic lesion or biliary ductal dilatation is appreciated. Approximately 2.5 cm gallstone. No evidence of gallbladder wall thickening or pericholecystic inflammatory change. PANCREAS: Unremarkable SPLEEN: Unremarkable ADRENAL GLANDS: Unremarkable KIDNEYS AND URETERS: Approximately 3.7 cm or less benign bilateral simple renal cysts for which no further dedicated follow-up imaging as indicated. The kidneys otherwise appear unremarkable in size, shape, and attenuation. No hydronephrosis, hydroureter, or calculi seen. BLADDER: Poorly distended, therefore suboptimally evaluated. Question mild diffuse thickening of the wall the urinary bladder. No evidence of induration of adjacent fat. GASTROINTESTINAL TRACT: Stomach and small bowel appear unremarkable. Scattered sigmoid diverticula without evidence of diverticulitis. Normal-appearing distal ileum. Suspect appendectomy. ABDOMINAL WALL: No significant hernia is appreciated. LYMPH NODES: No evidence of adenopathy by size criteria. VASCULAR: Aortoiliac atherosclerosis. PELVIC VISCERA: Suspect small right varicocele, only partially imaged. OSSEOUS STRUCTURES: Moderate lower lumbar disc degenerative change. No evidence of spondylolysis or spondylolisthesis. CT/CT urogram IMPRESSION: No urinary tract stone or suspicious mass identified. Poorly distended, therefore suboptimally evaluated. Question mild diffuse thickening of the wall the urinary bladder. No evidence of induration of adjacent fat. Suspect small right varicocele, only partially imaged. Additional findings, as above. Electronically signed by: Nelson Devi MD 09/26/2024 10:56 AM [facility]YRUS
[2024-09-25] MEDS: iohexoL 350 MG/ML 100 ML INFUS..BTL 85 ML IV (08:58)
== END 2024-09-25 08:20 | disposition home or self-care (01) ==
LOC: HO.CT 08:19
PROVIDERS: PCP Internal Medicine Geriatric Medicine; Visit Provider Nurse Practitioner Family
DX: R31.0 Gross hematuria (principal)
CPT/HCPCS: 74178; Q9967

== ENCOUNTER 2024-10-23 11:56 | Outpatient (AMB) | payer BC, SELFPAY ==
--- NOTE | 2024-10-23 11:57 | A.OFFVIS_ITS ---
Intake Visit Reasons: follow up/CT(set) Intake Note: Patient presents today for tele visit follow up on: gross hematuria and CT Scan results Imaging Completed: 09/25/24 PSA: 0.42 Urology Medications: none Blood Thinner: none Highway Maintenance Crew Worker Required: Yes Highway Maintenance Crew Worker Name: [id number] Accompanied by: Self / Same As Patient Allergies No Known Allergies [No Known Allergies*] Allergy (Verified 10/23/24 12:01) Medication List - Last Reconciled 10/23/24 by ROXY Costello aspirin 81 mg PO DAILY levothyroxine 50 mcg PO QAM losartan 25 mg PO DAILY metoprolol tartrate 25 mg PO BID HPI Comments Details: Isidro is a very pleasant 64-year-old Central African-speaking male patient of Dr. Hernadez. He has a past medical history of diabetes. He is being followed up on today via telehealth. Of note, patient was seen approximately 1 month ago here in the office with Dr. Alan at which time he underwent an in office cystoscopy for his . Cystoscopy findings: prostatic urethra mild obstructive, bilobar enl argement, bulbous urethra WNL, no suspicious bladder lesions visualized. Urine cytology 08/17- Negative. However CT urogram remained pending at time of last visit therefore these results were reviewed with the patient today. Approximately 3.7 cm or less benign bilateral simple renal cysts for which no further dedicated follow-up imaging as indicated. The kidneys otherwise appear unremarkable in size, shape, and attenuation. No hydronephrosis, hydroureter, or calculi seen. The bladder is poorly distended, therefore suboptimally evaluated. Question mild diffuse thickening of the wall the urinary bladder. No evidence of induration of adjacent fat. In discussion with the patient today he denies any further episodes of gross hematuria. He does have a history of previous nicotine dependence however quit many years ago (approximately 25 years ago). He denies any known workplace chemical exposure. He denies urinary urgency, urinary frequency, incontinence, nocturia, dysuria, foul smelling urine, changes to urinary stream, flank pain, fever, and or chills. He is happy with his current voiding parameters. He otherwise offers no other issues or concerns at this time. PSAs are as follows: 07/15 0.5, 08/16 0.6 [facility] Medical History Diabetes Review of Systems Const All systems reviewed & are unremarkable except as noted in HPI and below Physical Exam Const General: cooperative Resp Effort & Inspection: able to speak in complete sentences Psych Speech and movement: Clear speech present Affect: normal affect Attitude: cooperative Thought content: Normal thought content present Insight: Fair insight present (Psych) Judgement: Fair judgement present (Psych) Telehealth Telehealth Telehealth Platform: [employer] Location of provider rendering services: practice address Location of patient: address on file Patient Identification confirmed using: Name, : Yes Telehealth method: voice only Patient verbally consented to treatment: Yes Patient verbally consented to billing insurance company: Yes Patient informed of any privacy concerns related to visit: Yes Minutes spent on Phone/Video with Pt.: 15 Results Reviewed Results Reviewed: Date of Service: 09/25/24 EXAMINATION: CT ABDOMEN AND PELVIS WITHOUT AND WITH CONTRAST FINDINGS: LUNG BASES: The lung bases appear clear, with no evidence of inflammation or nodules. Heart normal in size. Partially imaged coronary arterial calcification. No pericardial effusion. LIVER, GALLBLADDER, AND BILIARY TREE: Suspect mild fatty infiltration of the liver. The liver appears unremarkable in size and shape. No focal hepatic lesion or biliary ductal dilatation is appreciated. Approximately 2.5 cm gallstone. No evidence of gallbladder wall thickening or pericholecystic inflammatory change. PANCREAS: Unremarkable SPLEEN: Unremarkable ADRENAL GLANDS: Unremarkable KIDNEYS AND URETERS: Approximately 3.7 cm or less benign bilateral simple renal cysts for which no further dedicated follow-up imaging as indicated. The kidneys otherwise appear unremarkable in size, shape, and attenuation. No hydronephrosis, hydroureter, or calculi seen. BLADDER: Poorly distended, therefore suboptimally evaluated. Question mild diffuse thickening of the wall the urinary bladder. No evidence of induration of adjacent fat. GASTROINTESTINAL TRACT: Stomach and small bowel appear unremarkable. Scattered sigmoid diverticula without evidence of diverticulitis. Normal-appearing distal ileum. Suspect appendectomy. ABDOMINAL WALL: No significant hernia is appreciated. LYMPH NODES: No evidence of adenopathy by size criteria. VASCULAR: Aortoiliac atherosclerosis. PELVIC VISCERA: Suspect small right varicocele, only partially imaged. OSSEOUS STRUCTURES: Moderate lower lumbar disc degenerative change. No evidence of spondylolysis or spondylolisthesis. IMPRESSION: No urinary tract stone or suspicious mass identified. Poorly distended, therefore suboptimally evaluated. Question mild diffuse thickening of the wall the urinary bladder. No evidence of induration of adjacent fat. Suspect small right varicocele, only partially imaged. Additional findings, as above. Assessment & Plan Assessment & Plan (1) Bladder wall thickening: Code(s): N32.89 - Other specified disorders of bladder Category: Medical (2) Renal cyst: Code(s): N28.1 - Cyst of kidney, acquired Category: Medical (3) History of nicotine dependence: Code(s): Z87.891 - Personal history of nicotine dependence Category: Medical (4) Gross hematuria: Code(s): R31.0 - Gross hematuria Category: Medical Plan Recent CT results reviewed with the patient today; as noted above. He denies any bothersome urinary issues or concerns. He reports be happy with current voiding parameters. Discussed surveillance monitoring. Will obtain PSA for further assessment evaluation. Follow-up in 6 months with PSA and PVR; or sooner with any issues, concerns, and or questions per Orders: Orders Prostate Specific Antigen Today N28.1 - Cyst of kidney, acquired, N32.89 - Other specified disorders of bladder, R31.0 - Gross hematuria, Z87.891 - Personal history of nicotine dependence Patient Instructions: The patient had an opportunity to ask questions regarding the treatment plan. All questions were answered. Physical exam, labs, and imaging were discussed and reviewed in detail. As well as risks, benefits, and discussion of treatment choices. No major barriers to understanding were identified. The patient expressed understanding and agreement with the above treatment plan. The patient was made aware they should contact our office by phone for worsening of their current condition, the appearance of new symptoms, or with any questions or concerns. Compliance is encouraged with any medications and follow up testing that is ordered. It is a privilege to be allowed the opportunity to participate in? your urological care.? Again, if you have any questions or concerns If you have any questions or concerns please do not hesitate to contact me. The office is [phone]. This note is constructed using voice recognition software. While every effort has been made to ensure accuracy instrument mechanic errors may have been included. Yours sincerely, JESSICA Costello-JOHN Coding Level of Care Code Tele Est Pt Level 3 (26562) Diagnoses Bladder wall thickening N32.89 Renal cyst N28.1 History of nicotine dependence Z87.891 Gross hematuria R31.0
== END 2024-10-23 12:23 | disposition home or self-care (01) ==
LOC: HO.HUSH 11:56
PROVIDERS: PCP Internal Medicine Geriatric Medicine; Visit Provider Nurse Practitioner Family
DX: N32.89 Other specified disorders of bladder (principal); N28.1 Cyst of kidney, acquired; Z87.891 Personal history of nicotine dependence; R31.0 Gross hematuria
CPT/HCPCS: 99442

== ENCOUNTER 2025-02-01 09:13 | Outpatient (REF) | payer BC, SELFPAY ==
--- OUTSIDE RECORDS SUMMARY | 2025-02-01 09:55 | XMS_ITS | Encounter Summary ---
Author Organization [employer] Address [address] [facility] [address] [place] [address] Care Team Providers Care Riveter Name Role Phone Name, Popeye ASIF Primary Care Provider [phone] Nora Johansen PharmD Unavailable [phone] Encounter Details Date Type Department Care Team (Late st Contact Info) Description 11/25/2022 Orders Only [facility] [address] [place], [place] [phone] Loni Mejia LPN Social History Tobacco Use Types Packs/Day Years Used Date Smoking Tobacco: Never Assessed Sex and Gender Information Value Date Recorded Sex Assigned at Male 08/24/2022 10:17 AM EDT Legal Sex Male 10:17 AM EDT Gender Identity Choose not to disclose 10:17 AM EDT Sexual Orientation Choose not to disclose 2021 10:17 AM EDT documented as of this encounter Plan of Treatment Upcoming Encounters Date Type Department Care Team (Late st Contact Info) Description 03/26/2025 9:00 AM EDT Medication Management [facility] [address] [place] [phone] Nora Johansen, PharmD [address] [place] [address] 04/10/2025 9:00 AM EDT Office Visit [facility] [address] [place] [phone] Popeye Hernadez MD [address] [place] [phone] documented as of this encounter Procedures Procedure Name Priority Date/Time Associated Diagnosis Comments T4, FREE Routine 08/19/2023 10:23 AM EDT documented in this encounter Results * T4, Free (08/19/2023 10:23 AM EDT) Free T4 (Free Thyroxine) 0.78 0.71 - 1.85 ng/dL [facility] 08/19/2023 10:2 3 AM EDT 08/19/2023 11:33 AM EDT us Popeye Name LAB BLOOD ORDERABLES Final Resul t [facility] [address] [place] [phone] documented in this encounter Visit Diagnoses Not on filedocumented in this encounter Care Teams Riveter Relationship Specialty Start Date End Date Name, MD Popeye [address] [place] [phone] PCP - General Family Medicine 01/15/16 Nora Johansen PharmD [address] [place] [phone] Pharmacist Internal Medicine 12/06/24 documented as of this encounter
--- OUTSIDE RECORDS SUMMARY | 2025-02-01 09:56 | XMS_ITS | Encounter Summary ---
Author Organization [facility] [facility] [employer] Address [address] [facility] [address] [place] [address] Care Team Providers Care Physician Intensivist Name Role Phone Name, Popeye ASIF Primary Care Provider [phone] Nora Johansen PharmD Unavailable [phone] Reason for Visit * Reason Onset Date Comments Med Refill 01/21/2024 Encounter Details Date Type Department Care Team (Late st Contact Info) Description 01/21/2024 Refill [facility] [address] [place], [place] [phone] Name, MD Popeye [address] [place] [address] Hypertension, unspecified type; Coronary artery disease involving [place] coronary artery of [place] heart without angina pectoris Social History Tobacco Use Types Packs/Day Years Used Date Smoking Tobacco: Former Cigarettes Q uit: 2009 Smokeless Tobacco: Never Alcohol Use Standard Drinks/Week Comments Never 0 (1 standard drink = 0.6 oz pur e alcohol) Depression Answer Date Recorded Patient Health Questionnaire-9 Score 0 08/19/2023 Patient Health Questionnaire-9 Score 0 08/19/2023 Last PHQ-9: Questionnaire Data Not on file 1 Housing Stability Answer Date Recorded What is your housing situation today? I have briseida radha 11/17/[address] you li ve. Do you have problems with any of the following? None of the above 11/17/2023 Food Insecurity Answer Date Recorded Within the past 12 months, y ou worried that your food would run out before you got money to buy more: Never True 11/17/2023 Within the past 12 months,th e food you bought just didn't last and you didn't have enough money to get more: Never True Transportation Answer Date Recorded In the past 12 months, has l ack of transportation kept you from medical appts, meetings, work or from getting things needed for daily living? No 11/17/2023 Utilities Answer Date Recorded In the past 12 months, has t he electric, gas, oil or water company threatened to shut off services in your home? 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 Not on file Not on file Not on file documented as of this encounter Plan of Treatment Upcoming Encounters Date Type Department Care Team (Late st Contact Info) Description 03/26/2025 9:00 AM EDT Medication Management [facility] [address] [place] [id number] Nora Johansen, PharmD [address] [place] [address] 04/10/2025 9:00 AM EDT Office Visit [facility] [address] [place] [phone] Name, MD Popeye [address] [place] [phone] documented as of this encounter Visit Diagnoses Diagnosis Hypertension, unspecified type Coronary artery disease involving [place] coronary artery of [place] heart without angina pectoris documented in this encounter Additional Health Concerns Assessment Noted Time PHQ-9 Depression Total Score: 0 08/19/20 10:12 AM EDT documented as of this encounter Care Teams Physician Intensivist Relationship Specialty Start Date End Date Popeye Hernadez MD [address] [place] [phone] PCP - General Family Medicine 01/15/16 Nora Johansen, PharmD [address] [place] [phone] Pharmacist Internal Medicine 12/06/24 documented as of this encounter
--- OUTSIDE RECORDS SUMMARY | 2025-02-01 09:56 | XMS_ITS | Clinical Summary ---
Author Organization [employer] Address [address] [facility] 7t [place] [address] Care Team Providers Care Mainspring Winder Name Role Phone Name, Popeye ASIF Primary Care Provider [phone] Nora Johansen PharmD Unavailable [phone] Allergies Active Allergy Reactions Criticality Noted Date Comments Atorvastatin 10/03/2019 Other reaction(s): Rhabdomyolysis Medications aspirin (Aspirin Low Dose) 81 MG EC tablet Take 1 tablet (81 mg) by mouth Once per day. 30 tablet 11 4 Active levothyroxine (Synthroid, Levoxyl) 50 MCG tablet Take 1 tablet (50 mcg) by mouth in the morning. 30 tablet 11 4 Active losartan (Cozaar) 25 MG tablet Take 1 tablet (25 mg) by mouth Once per day. 30 tablet 11 4 05/31/20 25 Active metoprolol tartrate (Lopressor) 25 MG tabletIndications: Essential hypertension Take 1 tablet (25 mg) by mouth 2 times daily. 60 tablet 11 4 Active Blood Pressure kitIndications:Typ e 2 diabetes mellitus without complication, without long-term current use of insulin ([facility]),Essentia l hypertension Use to check home BP daily as directed 1 kit 5 Active empagliflozin (Jardiance) 10 MGIndications:Type 2 diabetes mellitus without complication, without long-term current use of insulin (CMS/HCC),Microalb uminuria Take 1 tablet (10 mg) by mouth Once per day. 90 tablet 3 5 12/06/19 26 Active Icosapent Ethyl (Vascepa) 1 g capsuleIndications :Type 2 diabetes mellitus without complication, without long-term current use of insulin (CMS/HCC),Statin intolerance,Histor y of rhabdomyolysis due to statin,History of CAD (coronary artery disease),High cholesterol Take 2 capsules (2 g) by mouth with breakfast and with evening meal. 120 capsule 11 5 12/06/19 Active Active Problems Problem Noted Date Diagnosed Date Coronary arteriosclerosis 08/19/20232022 Myocardial infarction 08/19/2023 08/19/2023 Overview (08/19/2023): inferior STEMI 2019 with subsequent PCI and 2 POLO to RCA he has residual LAD disease. He had rhabdomyolisis on statin in the past. History of rhabdomyolysis due to statin 08/19/20 Psoriasis 08/19/2023 Acquired hypothyroidism 10/14/2018 08/19/20 Type 2 diabetes mellitus 08/15/2018 023 CKD (chronic kidney disease) stage 3, GFR 30-59 ml/min 12/22/2017 08/19/2023 Essential hypertension 12/22/2017 3 Obesity (BMI 30-39.9) 12/22/2017 11/17/2023 Hypertriglyceridemia 04/11/2010 08/19/2023 Encounters Date Type Department Care Team Description 01/23/2025 Travel 01/18/2025 Travel 12/26/2024 10:45 AM EST Office Visit [facility] [address] [place] [address] Name, MD Popeye Type 2 diabetes mellitus without complication, without long-term current use of insulin (CMS/HCC) (Primary Dx); History of [place] (myocardial infarction); Acquired hypothyroidism 12/26/2024 Travel 12/21/2024 Telephone [facility] [address] [place] [address] Ysabel Erazo MA chart prep 12/19/2024 Travel 12/06/2024 Travel 11/30/2024 Travel 11/30/2024 Telephone [facility] [address] [place] [address] Neel Hameed MA Appointment Confirmation 11/28/2024 Telephone [facility] [address] [place] [address] NamePopeye MD Medication Question 11/28/2024 Telephone [facility] [address] [place] [address] Name, MD Popeye Appointment Request 11/17/2024 9:00 AM EST Office Visit [facility] [address] [place] [address] Claudia Akbar, OD Type 2 diabetes mellitus without ophthalmic manifestations (CMS/HCC) (Primary Dx); Nuclear sclerotic cataract of both eyes; 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; Hypermetropia, bilateral 11/17/2024 Travel from Last 3 Months Immunizations Name Administration Dates Next Due Influenza injectable quadrivalent preservative f ree 08/13/2020,09/24/2015 Influenza, IIV3, injectable 09/24/2015 Influenza, seasonal, injectable, preservative fr ee 12/26/2024 Tdap 07/31/2024,04/23/2014 Social History Tobacco Use Types Packs/Day Years Used Date Smoking Tobacco: Former Cigarettes Q uit: 2009 Smokeless Tobacco: Never Tobacco Cessation:Counseling Given: Not Answered Alcohol Use Standard Drinks/Week Comments Never 0 (1 standard drink = 0.6 oz pur e alcohol) Depression Answer Date Recorded Patient Health Questionnaire-9 Score 1 12/26/2024 Patient Health Questionnaire-9 Score 1 12/26/2024 Last PHQ-9: Questionnaire Data Not on file 0 12/26/2024 Housing Stability Answer Date Recorded What is your housing situation today? I have briseida radha 12/26/[address] you li ve. Do you have problems with any of the following? None of the above 12/26/2024 Food Insecurity Answer Date Recorded Within the past 12 months, y ou worried that your food would run out before you got money to buy more: Sometimes True 2024 Within the past 12 months,th e food you bought just didn't last and you didn't have enough money to get more: Never True 12/26/2024 Transportation Answer Date Recorded In the past 12 months, has l ack of transportation kept you from medical appts, meetings, work or from getting things needed for daily living? No 12/26/2024 Utilities Answer Date Recorded In the past 12 months, has t he electric, gas, oil or water company threatened to shut off services in your home? 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 Not on file Not on file Last Filed Vital Signs Vital Sign Reading Time Taken Comments Blood Pressure 118/72 01/23/2025 9:13 AM EDT Pulse 61 12/26/2024 10:47 AM EST Temperature 36.7 ??C (98.1 ??F) 12/26/2024 10:[address] Respiratory Rate 18 12/26/2024 10:47 AM EST Oxygen Saturation 97% 12/26/2024 10:47 AM EST Inhaled Oxygen Concentration - - Weight 90.8 kg (200 lb 3.2 oz) 12/26/2024 10:47 AM EST Height 172.7 cm (5' 8 ) 12/26/2024 10:47 AM EST Body Mass Index 30.44 12/26/2024 10:47 AM EST Plan of Treatment Upcoming Encounters Date Type Department Care Team (Late st Contact Info) Description 03/26/2025 9:00 AM EDT Medication Management [facility] [address] [place] [address] Nora Johansen, PharmD [address] [place] [address] 04/10/2025 9:00 AM EDT Office Visit [facility] [address] [place] [address] Name, MD Popeye [address] [place] [address] Health Maintenance Due Date Last Done Comments CT Colonography 1960 Colonoscopy 1960 Colorectal Cancer Screening 1960 FIT DNA/Cologuard 1960 FIT 1960 FOBT 1960 HIV Screening 1960 Sigmoidoscopy 1960 Hepatitis C Screening 02/28/1978 Pneumococcal Vaccine: 50+ Years (1 of 2 - PCV) 02/28/1979 Zoster Vaccines (1 of 2) 02/28/2010 RSV Patients and Patients Aged 60 years or older (1 - Risk 60-74 years 1-dose series) 2020 COVID-19 Vaccine ( season) 2024 08/21/2021, 02/16/2021, 01/27/2021 Diabetes: Foot Exam 11/17/2024 11/17/2023, 11/17/2023, 11/17/2023, Additional history exists Diabetes: Urine Protein Screening 11/17/2024 11/17/2023, 02/27/2022, 07/19/2021, Additional history exists Alcohol/Substance Use Screening 05/31/2025 05/31/2024 Diabetes: Hemoglobin A1C 06/05/2025 025, 07/31/2024, 02/25/2024, Additional history exists Lipid Panel 09/06/2025 09/06/2024, 08/0 04/2024, 08/19/2023, Additional history exists Depression Screening 12/26/2025 12/26/2024, 12/27/19 SDOH Screening 12/26/2025 12/26/2024 Tobacco Screening 12/26/2025 12/26/2024 Eye Exam 11/17/2026 11/17/2024, 10/26, 11/17/2024, Additional history exists DTaP/Tdap/Td Vaccines (3 - Td or Tdap) 07/31/2034 07/31/2024, 04/23/2014 Influenza Vaccine Completed 12/26/2024, , 09/24/2015, Additional history exists HIB Vaccines Aged Out No longer eligi ble based on patient's age to complete this topic HPV Vaccines Aged Out No longer eligi ble based on patient's age to complete this topic Hepatitis A Vaccines Aged Out No long er eligible based on patient's age to complete this topic Hepatitis B Vaccines Aged Out No long er eligible based on patient's age to complete this topic IPV Vaccines Aged Out No longer eligi ble based on patient's age to complete this topic Meningococcal Vaccine Aged Out No philip marcie eligible based on patient's age to complete this topic RSV under 20 months Aged Out No longe r eligible based on patient's age to complete this topic Rotavirus Vaccines Aged Out No longer eligible based on patient's age to complete this topic Procedures Procedure Name Priority Date/Time Associated Diagnosis Comments POCT GLUCOSE Routine 12/26/2024 10:49 AM EST Type 2 diabetes mellitus without complication, without long-term current use of insulin ([facility]) POCT GLYCATED HEMOGLOBIN, TOTAL Routine 12/06/2024 4:22 PM EST Type 2 diabetes mellitus without complication, without long-term current use of insulin ([facility]) LIPID PANEL, STANDARD Routine 09/06/2024 9:55 AM EST History of CAD (coronary artery disease) ALBUMIN, RANDOM URINE W/CREATININE Routine 11/17/2023 10:18 AM EST Proteinuria, unspecified type from Last 3 Months or Most Recently Relevant to Health Maintenance Results * POCT Glucose (12/26/2024 10:49 AM EST) Glucose Blood, POC 124 60 - 200 mg/dL QC Media Lot # [id number] Lot# Expiration Date [id number] Blood Capillary blood specimen / Unknown 12/26/2024 10:49 AM EST Popeye Hernadez MD POINT OF CARE TEST ENTER/EDIT OR DERABLES Final Result * (ABNORMAL) POCT HGB A1C (12/06/2024 4:22 PM EST) Hemoglobin A1C 6.4(A) 4.0 - 6.0 % Blood 12/06/2024 4:22 PM EST us Popeye Name MD POINT OF CARE TEST ENTER/EDIT OR DERABLES Final Result * (ABNORMAL) Lipid Panel, Standard (09/06/2024 9:55 AM EST) Triglycerides 241(H) <150 mg/dL [facility] Comment:Desirable Triglyceri de: less than 150 mg/dLBorderline High Triglyceride 150-199 mg/dLHigh Triglyceride: 200-499 mg/dLVery High Triglyceride: greater than or equal to 5OO mg/dL Cholesterol 178 <200 mg/dL [facility] Comment:Desirable Cholestero l: less than 200 mg/dLBorderline High Cholesterol: 200-239 mg/dLHigh Cholesterol: greater than 239 mg/dL LDL Cholesterol Calculated 89 <100 mg/dL [facility] Comment:Desirable LDL: less than 100 mg/dLNear Optimal/Above Optimal LDL: 110- 129 mg/dLBorderline High LDL: 130-159 mg/dLHigh LDL: 160-189 mg/dLVery High LDL: greater than or equal to 190 mg/dL HDL Cholesterol 41 >40 mg/dL [facility] Comment:Desirable HDL: great er than 40 mg/dL Note: This HDL assay may give artificially low results in patients with liver disease. Blood Venous blood specimen / Unknown 09/06/2024 9:55 AM EST 09/06/2024 10:46 AM EST us Popeye Hernadez MD LAB BLOOD ORDERABLES Final Resul t [facility] [address] [place] [phone] * (ABNORMAL) Albumin, Random Urine W/Creatinine (11/17/2023 10:18 AM EST) Creatinine, Urine 154.61 mg/dL [facility] Microalbumin Urine 50.0 mg/L [facility] Microalbum Creatinine Ratio Ur 32.3(H) <30 ug/mg cr [facility] Comment:Albumin/Creatinine R atio Reference Ranges: Normal: < 30 ug/mg creatinine Microalbuminuria: 30 - 300 ug/mg creatinineClinical Albuminuria: > 300 ug/mg creatinine Urine (Urine, Random) 11/17/2023 10:18 AM EST 11/17/2023 11:07 AM EST us Popeye Hernadez MD LAB URINE ORDERABLES Final Resul t [facility] [address] [place] [address] [phone] from Last 3 Months or Most Recently Relevant to Health Maintenance Insurance PPO Care Teams Mainspring Winder Relationship Specialty Start Date End Date Name, MD Popeye [address] [place] [address] PCP - General Family Medicine 01/15/16 Nora Johansen PharmD [address] [place] [address] Pharmacist Internal Medicine 12/06/24
--- OUTSIDE RECORDS SUMMARY | 2025-02-01 09:56 | XMS_ITS | Encounter Summary ---
Author Organization [employer] Address [address] [facility] 7t [place] [address] Care Team Providers Care Work Force Advisor Name Role Phone Name, Popeye ASIF Primary Care Provider [phone] Nora Johansen PharmD Unavailable [phone] Reason for Visit * Reason Onset Date Comments Med Refill 01/21/2024 Encounter Details Date Type Department Care Team (Late st Contact Info) Description 01/21/2024 Refill [facility] [address] [place], [place] [phone] Elisabeth Colon MD [address] [place] [address] Social History Tobacco Use Types Packs/Day Years [...] your housing situation today? 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 Not on file documented as of this encounter Plan of Treatment Upcoming Encounters Date Type Department Care Team (Late st Contact Info) Description 03/26/2025 9:00 AM EDT Medication Management [facility] [address] [place] [address] Nora Johansen PharmD [address] [place] [address] 04/10/2025 9:00 AM EDT Office Visit [facility] [address] [place] [address] NamePopeye MD [address] [place] [address] documented as of this encounter Visit Diagnoses Not on filedocumented in this encounter Additional Health Concerns Assessment Noted Time PHQ-9 Depression Total Score: 0 08/19/20 23 10:12 AM EDT documented as of this encounter Care Teams Work Force Advisor Relationship Specialty Start Date End Date NamePopeye MD [address] [place] [address] PCP - General Family Medicine 01/15/16 Nora Johansen, PharmD [address] [place] [address] Pharmacist Internal Medicine 12/06/24 documented as of this encounter
--- OUTSIDE RECORDS SUMMARY | 2025-02-01 09:56 | XMS_ITS | Data Portability ---
Author Organization [employer] [facility] Address [address] [place] [address] Assessment No assessment recorded. Plan of Treatment Reminders Order Date Submit Date Provider Last Modified By Organization Details Last Modified Time Details Appointments None record ed. Lab None record ed. Referral None record ed. Procedures None record ed. Surgeries None record ed. Imaging None record ed. Medication Orders None record ed. Patient TargetsNo targets recorded. Patient InstructionsNo instructions recorded. Reason for Referral None Reported. Procedures Surgical History Date Name Laterality Status Provider Name and Address Organization Details Recorded Time 3 OC-BAT Screening Template DOT completed RUPAL CUEVAS [employer] 05/17/2023 09:58:29 3 OC-UDS Send Out Template DOT completed RUPAL CUEVAS [employer] 05/17/2023 09:57:22 Imaging Results None recorded. Procedure Notes None recorded. Medical Equipment None Reported. Vitals None Recorded Social History None recorded. Functional Status None recorded. Mental Status None recorded. Family History Nothing Reported. Medical History No medical history recorded. Past Encounters Encounter ID Performer Location Encounter Start Date Encounter Closed Date Diagnosis/Indication Diagnosis SNOMED-CT Code Diagnosis ICD10 Code Diagnosis Note [id number] [address] [place] [address] 06/20/2020 11:27:09 06/20/2020 13:53:53 [id number] [address] [address] 05/07/2022 14:27:19 05/07/2022 14:59:58 [id number] [address] [address] 03/03/2019 12:56:00 03/03/2019 14:47:09 [id number] [address] [place] [address] 08/27/2022 09:37:46 08/27/2022 19:58:16 [id number] [address] [facility] [place] [address] 03/05/2021 13:59:30 03/05/2021 14:20:24 [id number] [address] [place] [address] 03/14/2020 13:12:13 03/14/2020 14:50:17 [id number] [address] [facility] [place] [address] 05/09/2021 13:43:20 05/09/2021 15:46:51 [id number] [address] [place] [address] 08/28/2021 11:03:54 08/28/2021 12:38:25 [id number] [address] [place] [address] 06/04/2020 18:12:29 06/04/2020 20:10:25 [id number] [address] [facility] [place] [address] 12/25/2021 11:24:37 12/25/2021 13:48:05 [id number] [address] [facility] [address] 08/30/2020 14:39:50 08/30/2020 15:38:24 [id number] [address] [facility] [address] 03/27/2022 14:00:57 03/27/2022 14:49:23 [id number] Enrique Curry NP [address] [facility] [place] [address] 05/17/2023 08:37:18 05/17/2023 10:00:39 History and physical examination, occupation 915910155 Z02.1 Health Concerns Section Related Observation LastModified by Organization Giuliano ruiz LastModified Time None Recorded Concern Status LastModified by Organization Details LastModified Time None Recorded Advance Directives Directive None Recorded Payers Encounter Date Sequence Insurance Name Policy Number Policy Eduardo Covered Member ID Eduardo Member ID Guarantor Name 05/17/2023 OC-ESCREEN Isidro Vance [id number] Isidro Vance
--- OUTSIDE RECORDS SUMMARY | 2025-02-01 09:56 | XMS_ITS | Encounter Summary ---
Author Organization [employer] Address [address] [facility] 7t [place] [address] Care Team Providers Care Scrap Preparer Name Role Phone Name, Popeye ASIF Primary Care Provider [phone] Nora Johansen PharmD Unavailable [phone] Reason for Visit * Reason Onset Date Comments Appointment Request 11/28/2024 Encounter Details Date Type Department Care Team ([facility] Contact Info) Description 11/28/[address] [facility] [address] [place], [place] [phone] Name, MD Popeye [address] [place] [address] Appointment Request Social History Tobacco Use Types Packs/Day Years Used Date Smoking Tobacco: Former Cigarettes Q uit: 2010 Smokeless Tobacco: Never Alcohol Use Standard Drinks/Week Comments Never 0 (1 standard drink = 0.6 oz pur e alcohol) Depression Answer Date Recorded Patient Health Questionnaire-9 Score 0 08/19/2023 Patient Health Questionnaire-9 Score 0 08/19/2023 Last PHQ-9: Questionnaire Data Not on file 1 Housing Stability Answer Date Recorded What is your housing situation today? 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 Pt wants to see pcp. Has been trying to get a Appointment with him for a while. Contact pt at [phone] documented in this encounter Plan of Treatment Upcoming Encounters Date Type Department Care Team (Late st Contact Info) Description 03/26/2025 9:00 AM EDT Medication Management [facility] [address] [place] [address] Nora Johansen, PharmD [address] [place] [phone] 04/10/2025 9:00 AM EDT Office Visit [facility] [address] [place] [address] Name, MD Popeye [address] [place] [address] documented as of this encounter Visit Diagnoses Not on filedocumented in this encounter Additional Health Concerns Assessment Noted Time PHQ-9 Depression Total Score: 0 08/19/20 23 10:12 AM EDT documented as of this encounter Care Teams Scrap Preparer Relationship Specialty Start Date End Date Name, MD Popeye [address] [place] [address] PCP - General Family Medicine 01/15/16 Nora Johansen, Maddie [address] [place] [address] Pharmacist Internal Medicine 12/06/24 documented as of this encounter
--- OUTSIDE RECORDS SUMMARY | 2025-02-01 09:56 | XMS_ITS | Encounter Summary ---
Author Organization [employer] Address [address] [place] [address] 7t [place] [address] Care Team Providers Care Actuarial Science Professor Name Role Phone Name, Popeye ASIF Primary Care Provider [phone] Nora Johansen PharmD Unavailable [phone] Encounter Details Date Type Department Care Team ([facility] st Contact Info) Description 09/08/2024 Orders Only [facility] [address] [place], [place] [phone] Juan Carlos Muhammad MD [address] [place] [address] Social History Tobacco Use Types Packs/Day Years [...] 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 file Not on file documented as of this encounter Plan of Treatment Upcoming Encounters Date Type Department Care Team (Late st Contact Info) Description 03/26/2025 9:00 AM EDT Medication Management [facility] [address] [place] [phone] Nora Johansen PharmD [address] [place] [address] 04/10/2025 9:00 AM EDT Office Visit [facility] [address] [place] [address] Name, MD Popeye [address] [place] [address] documented as of this encounter Visit Diagnoses Not on filedocumented in this encounter Additional Health Concerns Assessment Noted Time PHQ-9 Depression Total Score: 0 08/19/20 10:12 AM EDT documented as of this encounter Care Teams Actuarial Science Professor Relationship Specialty Start Date End Date Name, MD Popeye [address] [place] [address] PCP - General Family Medicine 01/15/16 Nora Johansen PharmD [address] [place] [address] Pharmacist Internal Medicine 12/06/24 documented as of this encounter
[2025-02-01 12:05] LABS: Cholesterol 297 mg/dL (<200); HDL Cholesterol 39 mg/dL (>40); LDL Cholesterol Calculated 203 mg/dL (<100); Triglycerides 276 mg/dL (<150)
[2025-02-01 12:06] LABS: Alanine Aminotransferase 18 U/L (0-40); Albumin Level 4.2 g/dL (3.5-5.0); Alkaline Phosphatase 74 U/L (39-117); Aspartate Amino Transferase 29 U/L (5-37); Bilirubin Direct 0.2 mg/dL (0.0-0.5); Bilirubin Total 0.8 mg/dL (0.0-1.0); Blood Urea Nitrogen 16 mg/dL (9-16); Estimated Glomerular Filt Rate > 60; Total Protein 7.5 g/dL (6.5-8.0)
[2025-02-01 12:21] LABS: TSH reflex Free T4 16.59 uIU/mL (0.32-4.0)
[2025-02-01 12:28] LABS: Prostate Specific Antigen 0.51 ng/mL (<0.05-4.0)
[2025-02-01 13:04] LABS: Free T4 (Free Thyroxine) 0.73 ng/dL (0.71-1.85)
[2025-02-01 13:46] LABS: Reflex LDLD? No
== END 2025-02-01 09:14 | disposition home or self-care (01) ==
LOC: HO.HHCL 09:13
PROVIDERS: Nurse Practitioner Family; Visit Provider Internal Medicine Geriatric Medicine
DX: N28.1 Cyst of kidney, acquired (principal); R31.0 Gross hematuria; N32.89 Other specified disorders of bladder; Z87.891 Personal history of nicotine dependence; E11.9 Type 2 diabetes mellitus without complications; Z78.9 Other specified health status; Z87.39 Personal history of other diseases of the musculoskeletal system and connective tissue; Z86.79 Personal history of other diseases of the circulatory system; E78.00 Pure hypercholesterolemia, unspecified; E03.9 Hypothyroidism, unspecified; Z12.5 Encounter for screening for malignant neoplasm of prostate
CPT/HCPCS: 36415; 80061; 80076; 82565; 84153; 84439; 84443; 84520

== ENCOUNTER 2025-03-29 10:59 | Outpatient (AMB) | payer BC, SELFPAY ==
--- NOTE | 2025-03-29 11:14 | A.OFFVIS_ITS ---
Intake Visit Reasons: 6m followup(set) Intake Note: Patient presents today for follow up on: renal cyst and gross hematuria Urology Medications: none Blood Thinner: none PVR: 15ml's Network Technician Required: Yes Network Technician Services: Network Technician Present Network Technician Name: Lissy [id number] nicci [id number] Accompanied by: Self / Same As Patient Allergies No Known Allergies [No Known Allergies*] Allergy (Verified 03/29/25 11:29) Medication List - Last Reconciled 03/29/25 by JUICE Costello aspirin 81 mg PO DAILY losartan 25 mg PO DAILY metoprolol tartrate 25 mg PO BID HPI Comments Details: Isidro is a very pleasant 65-year-old Estonian-speaking male patient of Dr. Hernadez. He has a past medical history of diabetes. He presents to the office today for follow-up of his microscopic hematuria. In discussion with the patient today he reports to be doing and feeling well. Refill PSA results reviewed with the patient today as noted and trended below. Previous workup has included a CT urogram as well as in office cystoscopy. Cystoscopy findings 09/17: prostatic urethra mild obstructive, bilobar enlargement, bulbous urethra WNL, no suspicious bladder lesions visualized. Urine cytology 08/17- Negative. CT urogram 10/17 approximately 3.7 cm or less benign bilateral simple renal cysts for which no further dedicated follow-up imaging as indicated. The kidneys otherwise appear unremarkable in size, shape, and attenuation. No hydronephrosis, hydroureter, or calculi seen. The bladder is poorly distended, therefore suboptimally evaluated. Question mild diffuse thickening of the wall the urinary bladder. No evidence of induration of adjacent fat. In discussion with the patient today he denies having had any bothersome urinary issues or concerns. He does however report noting over the last 2-3 weeks he has been having issues with the foreskin on his penis. He brings with him a picture in refuses physical assessment today. It appears the penis is uncircumcised in the penile gland does appear mildly reddened. We discussed balanitis and potential causes of balanitis. We also discussed further treatment options and risks and benefits of these treatment options. He denies urinary urgency, urinary frequency, incontinence, nocturia, dysuria, foul smelling urine, changes to urinary stream, flank pain, fever, and or chills. In office urinalysis results reviewed with the patient today. PVR 15 mLs. He is happy with his current voiding parameters. He otherwise offers no other issues or concerns at this time. PSAs are as follows: 07/15 0.5, 08/16 0.6, 02/16 0.5 PFSH Medical History Diabetes Review of Systems Const All systems reviewed & are unremarkable except as noted in HPI and below Physical Exam Const General: cooperative, healthy appearing, comfortable, no acute distress, well developed, alert and awake Orientation/consciousness: patient oriented x3 Limitations: no limitations HEENT Head: Yes normal to inspection, Yes normocephalic and Yes atraumatic Ears: hearing grossly normal bilaterally Eyes General: appearance normal, both eyes and all related structures Neck Neck: Yes normal visual inspection and Yes trachea midline Chest Chest palpation & inspection: normal inspection of the chest Resp Effort & Inspection: normal respiratory effort and able to speak in complete sentences Cardio Rate: regular rate GI Inspection: Yes normal to inspection Other: As per HPI General: Yes no CVA tenderness Penis: uncircumcised Back/Spine/Pelvis Back: no CVA tenderness Skin General skin exam: no rashes or lesions noted Neuro General: patient oriented x3 Extrem General: Yes normal to inspection Psych Appearance: grossly normal and well kempt Mental Status: mental status grossly normal Speech and movement: Normal speech and movement present and Clear speech present Affect: normal affect Attitude: cooperative Thought process: Normal thought process present Thought content: Normal thought content present Insight: Fair insight present (Psych) Judgement: Fair judgement present (Psych) Office Procedures Post Void Residual Post Residual Void Post Void Residual (PVR): 15 [id number] Void Residual by ultrasound Results AMB Urinalysis, Automated UA Leukoctes 0 Pipo/uL Last Edit by SMA Sarahi on 03/29/25 11:33 UA Nitrite Last Edit by SMA Sarahi on 03/29/25 11:33 UA Urobilinogen 0.2 mg/dL Last Edit by Dionicio Lay, [facility] on 03/29/25 11:33 UA Protein 15 mg/dL Last Edit by Dionicio Lay, [facility] on 03/29/25 11:33 UA pH 5.5 Last Edit by Dionicio Lay, [facility] on 03/29/25 11:33 UA Blood 25 Martin/uL Last Edit by Dionicio Lay, [facility] on 03/29/25 11:33 UA Specific Heath 1.020 Last Edit by Dionicio Lay, [facility] on 03/29/25 11:33 UA Ketone Last Edit by Dionicio Lay, [facility] on 03/29/25 11:33 UA Bilirubin 0 mg/dL Last Edit by Dionicio Lay, [facility] on 03/29/25 11:33 UA Glucose 500 mg/dL Last Edit by Dionicio Lay, [facility] on 03/29/25 11:33 Assessment & Plan Assessment & Plan (1) Balanitis: Code(s): N48.1 - Balanitis Category: Medical Plan In office urinalysis results reviewed with the patient today; as noted above; will send for urine cytology. Patient currently denies any bothersome urinary issues or concerns. He reports be happy with current voiding parameters. Start clotrimazole/betamethasone cream as prescribed. We discussed potential causes of balanitis. We also discussed proper hygiene and area. Recent PSA results reviewed with the patient today; as noted above. We also discussed the importance of management and diabetes for overall health and well-being Follow-up in 3 months; or sooner with any issues, concerns, and or questions. Orders: Orders AMB Urinalysis Automated Today Z13.9 - Encounter for screening, unspecified AMB Post Void Residual by ultrasound Today N32.89 - Other specified disorders of bladder Medications: New clotrimazole-betamethasone 1-0.05 % Apply thin coat 2 times per day 1 appl topical BID 4 weeks 45 grams 0RF N48.1 - Balanitis Patient Instructions: The patient had an opportunity to ask questions regarding the treatment plan. All questions were answered. Physical exam, labs, and imaging were discussed and reviewed in detail. As well as risks, benefits, and discussion of treatment choices. No major barriers to understanding were identified. The patient expressed understanding and agreement with the above treatment plan. The patient was made aware they should contact our office by phone for worsening of their current condition, the appearance of new symptoms, or with any questions or concerns. Compliance is encouraged with any medications and follow up testing that is ordered. It is a privilege to be allowed the opportunity to participate in? your urological care.? Again, if you have any questions or concerns If you have any questions or concerns please do not hesitate to contact me. The office is [phone]. This note is constructed using voice recognition software. While every effort has been made to ensure accuracy telephone operator receptionist errors may have been included. Yours sincerely, JESSICA Costello-JOHN Coding Level of Care Code Est Pt Level 4 (11629) Diagnoses Balanitis N48.1 CPT Codes Post Residual Void - PVR CPT Code: 44463-Crew Void Residual by ultrasound ([id number])
== END 2025-03-29 11:46 | disposition home or self-care (01) ==
LOC: HO.HUSH 10:59
PROVIDERS: PCP Internal Medicine Geriatric Medicine; Visit Provider Nurse Practitioner Family
DX: Z13.9 Encounter for screening, unspecified (principal); N48.1 Balanitis
CPT/HCPCS: 99214

== ENCOUNTER → 2025-03-29 10:59 | Outpatient (BNVA) | payer BC, SELFPAY | PROVIDERS: PCP Internal Medicine Geriatric Medicine; Visit Provider Nurse Practitioner Family | DX: N32.89 Other specified disorders of bladder (principal) | CPT/HCPCS: 51798; 81003 ==

== ENCOUNTER 2025-04-24 11:23 | Outpatient (REF) | payer BC, SELFPAY ==
--- OUTSIDE RECORDS SUMMARY | 2025-04-24 12:38 | XMS_ITS | Encounter Summary ---
Author Organization [employer] Address [address] [facility] [address] [place] [address] Care Team Providers Care Billing Services Manager Name Role Phone Name, Popeye ASIF Primary Care Provider [phone] Nora Johansen PharmD Unavailable [phone] Encounter Details Date Type Department Care Team (Late st Contact Info) Description 11/25/2022 Orders Only [facility] [address] [place], [place] [phone] Loni Mejia LPN Social History Tobacco Use [...] Care Team (Late st Contact Info) Description 06/08/2025 9:00 AM EDT Medication Management [facility] [address] [place] [address] Betzy Johansensa, PharmD [address] [place] [address] documented as of this encounter Procedures Procedure Name Priority Date/Time Associated Diagnosis Comments T4, FREE Routine 08/19/2023 10:23 AM EDT documented in this encounter Results * T4, Free (08/19/2023 10:23 AM EDT) Free T4 (Free Thyroxine) 0.78 0.71 - 1.85 ng/dL [facility] 08/19/2023 10:2 3 AM EDT 08/19/2023 11:33 AM EDT us Popeye Hernadez MD LAB BLOOD ORDERABLES Final Resul t [facility] [address] [place] [phone] documented in this encounter Visit Diagnoses Not on filedocumented in this encounter Care Teams Billing Services Manager Relationship Specialty Start Date End Date Name, MD Popeye [address] [place] [address] PCP - General Family Medicine 01/15/16 Nora Johansen PharmD [address] [place] [address] Pharmacist Internal Medicine 12/06/24 documented as of this encounter
--- OUTSIDE RECORDS SUMMARY | 2025-04-24 12:38 | XMS_ITS | Data Portability ---
Author Organization [employer] [facility] [address] Address [address] [place] [address] Assessment No assessment recorded. Plan of Treatment [...] OC-BAT Screening Template DOT completed RUPAL CUEVAS [employer] [facility] 05/17/2023 09:58:29 3 OC-UDS Send Out Template DOT completed RUPAL CUEVAS [employer] [facility] 05/17/2023 09:57:22 Imaging Results None recorded. Procedure Notes None recorded. Medical Equipment None Reported. Vitals None Recorded Social History None recorded. Functional Status None recorded. Mental Status None recorded. Family History Nothing Reported. Medical History No medical history recorded. Past Encounters Encounter ID Performer Location Encounter Start Date Encounter Closed Date Diagnosis/Indication Diagnosis SNOMED-CT Code Diagnosis ICD10 Code Diagnosis Note [id number] [address] [place] [address] 06/20/2020 11:27:09 06/20/2020 13:53:53 [id number] [address] [facility] [facility] [address] [place] [address] 05/07/2022 14:27:19 05/07/2022 14:59:58 [id number] [address] [place] [address] 03/03/2019 12:56:00 03/03/2019 14:47:09 [id number] [place] [address] 08/27/2022 09:37:46 08/27/2022 19:58:16 [id number] [address] [place] [address] 03/05/2021 13:59:30 03/05/2021 14:20:24 [id number] [place] [address] 03/14/2020 13:12:13 03/14/2020 14:50:17 [id number] [address] [place] [address] 05/09/2021 13:43:20 05/09/2021 15:46:51 [id number] [place] [address] 08/28/2021 11:03:54 08/28/2021 12:38:25 [id number] [place] [address] 06/04/2020 18:12:29 06/04/2020 20:10:25 [id number] [address] [place] [address] 12/25/2021 11:24:37 12/25/2021 13:48:05 [id number] [address] [place] [address] 08/30/2020 14:39:50 08/30/2020 15:38:24 [id number] [address] [place] [address] 03/27/2022 14:00:57 03/27/2022 14:49:23 [id number] Enrique Curry, INSTALLATION MANAGER [address] [place] [address] 05/17/2023 08:37:18 05/17/2023 10:00:39 History and physical examination, occupation [id number] Z02.1 Health Concerns Section Related Observation LastModified by Organization Detai ls LastModified Time None Recorded Concern Status LastModified by Organization Details LastModified Time None Recorded Advance Directives Directive None Recorded Payers Insurance Date Sequence Insurance Name Policy Number Policy Eduardo Covered Member ID Eduardo Member ID Guarantor Name 05/17/2023 OC-SILVANO Vance [id number] ZULLY [id number] JESU Vance
[2025-04-24 13:46] LABS: Microalbum/Creatinine Ratio Ur 17.1 ug/mg cr (<30)
[2025-04-24 13:55] LABS: Alanine Aminotransferase 21 U/L (0-40); Albumin Level 4.2 g/dL (3.5-5.0); Alkaline Phosphatase 56 U/L (39-117); Anion Gap 11 (12-20); Aspartate Amino Transferase 27 U/L (5-37); Blood Urea Nitrogen 19 mg/dL (9-16); Calcium 8.9 mg/dL (8.4-10.2); Carbon Dioxide 29 mmol/L (22-29); Chloride 104 mmol/L (96-108); Cholesterol 253 mg/dL (<200); Estimated Glomerular Filt Rate > 60; HDL Cholesterol 41 mg/dL (>40); Potassium 4.3 mmol/L (3.3-5.1); Sodium 140 mmol/L (135-145); Total Protein 7.3 g/dL (6.5-8.0); Triglycerides 166 mg/dL (<150)
[2025-04-24 14:27] LABS: Reflex LDLD? No
== END 2025-04-24 11:24 | disposition home or self-care (01) ==
LOC: HO.HHCL 11:23
PROVIDERS: PCP Internal Medicine Geriatric Medicine; Visit Provider Internal Medicine Geriatric Medicine
DX: I25.10 Atherosclerotic heart disease of native coronary artery without angina pectoris (principal); E78.00 Pure hypercholesterolemia, unspecified; E78.1 Pure hyperglyceridemia; I10 Essential (primary) hypertension; I25.2 Old myocardial infarction; E03.9 Hypothyroidism, unspecified; R80.9 Proteinuria, unspecified; E11.9 Type 2 diabetes mellitus without complications
CPT/HCPCS: 36415; 80048; 80061; 80076; 82043; 82570; 84443

== ENCOUNTER 2025-06-28 07:44 | Outpatient (AMB) | payer BC, SELFPAY ==
--- NOTE | 2025-06-28 07:45 | A.OFFVIS_ITS ---
Intake Visit Reasons: 3m follow up Intake Note: Patient presents today for follow up on Urology Medications: none Blood Thinner: asprin Elastic Attacher Coverstitch Required: Yes Elastic Attacher Coverstitch Services: Elastic Attacher Coverstitch Present Accompanied by: Self / Same As Patient Allergies No Known Allergies (No Known Allergies*) Allergy (Verified 06/28/25 07:47) Medication List - Last Reconciled 06/28/25 by Shahla Alan MD aspirin 81 mg PO DAILY clotrimazole-betamethasone 1-0.05 % 1 appl topical BID 4 weeks losartan 25 mg PO DAILY metoprolol tartrate 25 mg PO BID HPI Comments Details: 06/28/25-- History of Present Illness The patient is a 65-year-old male followed for hematuria and balanitis. The hematuria was identified during a urine test, and a full workup revealed an enlarged prostate, renal cysts. The foreskin irritation has been intermittent and is exacerbated by sexual activity. The patient uses prescribed cream for relief, which helps, but the irritation recurs with intimacy. The patient is not circumcised and is considering circumcision if it can be performed under general anesthesia. The procedure would be conducted as an ambulatory day procedure with anesthesia, requiring fasting the night before and cessation of aspirin seven days prior. The patient has a history of diabetes mellitus, managed without medication as long as weight is maintained. The patient's primary care physician advised monitoring weight to avoid diabetes medication. The patient takes 81 mg of aspirin daily, which will be paused before the procedure. Results - Urine test: Microscopic hematuria detected 03/29/25--sky is a very pleasant 65-year-old Bengali-speaking male patient of Dr. Hernadez. He has a past medical history of diabetes. He presents to the office today for follow-up of his microscopic hematuria. In discussion with the patient today he reports to be doing and feeling well. Refill PSA results reviewed with the patient today as noted and trended below. Previous workup has included a CT urogram as well as in office cystoscopy. Cystoscopy findings 09/17: prostatic urethra mild obstructive, bilobar enlargement, bulbous urethra WNL, no suspicious bladder lesions visualized. Urine cytology 08/17- Negative. CT urogram 10/17 approximately 3.7 cm or less benign bilateral simple renal cysts for which no further dedicated follow-up imaging as indicated. The kidneys otherwise appear unremarkable in size, shape, and attenuation. No hydronephrosis, hydroureter, or calculi seen. The bladder is poorly distended, therefore suboptimally evaluated. Question mild diffuse thickening of the wall the urinary bladder. No evidence of induration of adjacent fat. In discussion with the patient today he denies having had any bothersome urinary issues or concerns. He does however report noting over the last 2-3 weeks he has been having issues with the foreskin on his penis. He brings with him a picture in refuses physical assessment today. It appears the penis is uncircumcised in the penile gland does appear mildly reddened. We discussed balanitis and potential causes of balanitis. We also discussed further treatment options and risks and benefits of these treatment options. He denies urinary urgency, urinary frequency, incontinence, nocturia, dysuria, foul smelling urine, changes to urinary stream, flank pain, fever, and or chills. In office urinalysis results reviewed with the patient today. PVR 15 mLs. He is happy with his current voiding parameters. He otherwise offers no other issues or concerns at this time. PSAs are as follows: 07/15 0.5, 08/16 0.6, 02/16 0.5 [facility] Medical History Diabetes Review of Systems Const All systems reviewed & are unremarkable except as noted in HPI and below Reports no additional complaints Eyes Reports no additional complaints ENT Reports no additional complaints Card Reports no additional complaints Resp Reports no additional complaints GI Reports no additional complaints Reports as per HPI Musc Reports no additional complaints Skin/Breast Reports system reviewed and no additional complaints, except as documented Neuro Reports no additional complaints Psych Reports no additional complaints Endo Reports no additional complaints Danielito/Lymph Reports no additional complaints Aller/Immun Reports no additional complaints Results Reviewed Results Reviewed: Date of Service: 09/25/24 EXAMINATION: CT ABDOMEN AND PELVIS WITHOUT AND WITH CONTRAST FINDINGS: LUNG BASES: The lung bases appear clear, with no evidence of inflammation or nodules. Heart normal in size. Partially imaged coronary arterial calcification. No pericardial effusion. LIVER, GALLBLADDER, AND BILIARY TREE: Suspect mild fatty infiltration of the liver. The liver appears unremarkable in size and shape. No focal hepatic lesion or biliary ductal dilatation is appreciated. Approximately 2.5 cm gallstone. No evidence of gallbladder wall thickening or pericholecystic inflammatory change. PANCREAS: Unremarkable SPLEEN: Unremarkable ADRENAL GLANDS: Unremarkable KIDNEYS AND URETERS: Approximately 3.7 cm or less benign bilateral simple renal cysts for which no further dedicated follow-up imaging as indicated. The kidneys otherwise appear unremarkable in size, shape, and attenuation. No hydronephrosis, hydroureter, or calculi seen. BLADDER: Poorly distended, therefore suboptimally evaluated. Question mild diffuse thickening of the wall the urinary bladder. No evidence of induration of adjacent fat. GASTROINTESTINAL TRACT: Stomach and small bowel appear unremarkable. Scattered sigmoid diverticula without evidence of diverticulitis. Normal-appearing distal ileum. Suspect appendectomy. ABDOMINAL WALL: No significant hernia is appreciated. LYMPH NODES: No evidence of adenopathy by size criteria. VASCULAR: Aortoiliac atherosclerosis. PELVIC VISCERA: Suspect small right varicocele, only partially imaged. OSSEOUS STRUCTURES: Moderate lower lumbar disc degenerative change. No evidence of spondylolysis or spondylolisthesis. IMPRESSION: No urinary tract stone or suspicious mass identified. Poorly distended, therefore suboptimally evaluated. Question mild diffuse thickening of the wall the urinary bladder. No evidence of induration of adjacent fat. Suspect small right varicocele, only partially imaged. Additional findings, as above. Assessment & Plan Assessment & Plan (1) Bladder wall thickening: Code(s): N32.89 - Other specified disorders of bladder Category: Medical (2) Renal cyst: Code(s): N28.1 - Cyst of kidney, acquired Category: Medical (3) History of nicotine dependence: Code(s): Z87.891 - Personal history of nicotine dependence Category: Medical (4) BPH (benign prostatic hyperplasia): Code(s): N40.0 - Benign prostatic hyperplasia without lower urinary tract symptoms Category: Medical (5) Hematuria: Code(s): R31.9 - Hematuria, unspecified Category: Medical Plan Plan 1. Microscopic Hematuria. BPH. - Monitor for changes and follow-up if symptoms persist or worsen. 2. Balanitis- Schedule Circucision. We will need to check hemoglobin A1c and fasting glucose prior Medications: Refilled clotrimazole-betamethasone 1-0.05 % Apply thin coat 2 times per day 1 appl topical BID 45 grams 0RF 4 weeks N48.1 - Balanitis Patient Instructions: The patient had an opportunity to ask questions regarding treatment plan. The patient expressed understanding and agreement with the above treatment plan. The patient is aware they should contact our office by phone for worsening of their current condition or the appearance of new symptoms. Compliance is encouraged with any medications and followup testing that is ordered. It is a privilege to be allowed the opportunity to participate in the urologic care of your patient. If you have any questions or concerns regarding treatment for the above conditions please do not hesitate to contact me. The office telephone contact is [phone]. This note is constructed in part using voice recognition software. While every effort has been made to ensure accuracy music researcher errors may have been included. Yours sincerely, Shahla Alan MD Scribe Plan - Not visible on output: Patient was informed and verbally consented to the use of an ambient scribe for clinic note documentation during this visit. Coding Level of Care Code Est Pt Level 4 (52248) Complex EM visit Add On G2211 Diagnoses Bladder wall thickening N32.89 Renal cyst N28.1 History of nicotine dependence Z87.891 BPH (benign prostatic hyperplasia) N40.0 Hematuria R31.9
--- OUTSIDE RECORDS SUMMARY | 2025-06-28 07:47 | XMS_ITS | Encounter Summary ---
Author Organization [employer] Address [address] [facility] [address] [place] [address] Care Team Providers Care Experimental Preflight Mechanic Name Role Phone Name, Popeye ASIF Primary Care Provider [phone] Nora Johansen PharmD Unavailable Reason for Visit * Reason Onset Date Comments Med Refill 01/21/2024 Encounter Details Date Type Department Care Team ([facility] st Contact Info) Description 01/21/2024 Refill [facility] [address] [place] [address] Elisabeth Colon MD [address] [place] [address] Social History Tobacco Use Types Packs/Day Years [...] 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 Not on file Not on file documented as of this encounter Plan of Treatment Upcoming Encounters Date Type Department Care Team (Late st Contact Info) Description 08/23/2025 9:15 AM EDT Office Visit [facility] [address] [place] [phone] Name, MD Popeye [address] [place] [phone] 09/17/2025 9:00 AM EST Medication Management [address] [address] Nora Johansen PharmD [address] [place] [address] documented as of this encounter Visit Diagnoses Not on filedocumented in this encounter Additional Health Concerns Assessment Noted Time PHQ-9 Depression Total Score: 0 08/19/20 10:12 AM EDT documented as of this encounter Care Teams Experimental Preflight Mechanic Relationship Specialty Start Date End Date Popeye Hernadez MD [address] [place] [phone] PCP - General Family Medicine 01/15/16 Nora Johansen, PharmD [address] [place] [address] Pharmacist Internal Medicine 12/06/24 documented as of this encounter
--- OUTSIDE RECORDS SUMMARY | 2025-06-28 07:47 | XMS_ITS | Clinical Summary ---
Author Organization [email or web address] Address [address] [facility] 7t [place] [address] Care Team Providers Care Furnace Charger Name Role Phone Name, Popeye ASIF Primary Care Provider [phone] Nora Johansen PharmD Unavailable [phone] Allergies Active Allergy Reactions Criticality Noted Date Comments Atorvastatin 10/03/2019 Other reaction(s): Rhabdomyolysis Medications Blood Pressure kitIndications:Ty pe 2 diabetes mellitus without complication, without long-term current use of insulin ([facility]),Essenti al hypertension Use to check home BP daily as directed 1 kit 12/06/19 25 Active empagliflozin (Jardiance) 10 MGIndications:Typ e 2 diabetes mellitus without complication, without long-term current use of insulin ([facility]),Microal buminuria Take 1 tablet (10 mg) by mouth Once per day. 90 tablet 3 12/06/19 25 2025 Active Icosapent Ethyl (Vascepa) 1 g capsuleIndication s:Type 2 diabetes mellitus without complication, without long-term current use of insulin ([facility]),Statin intolerance,Histo ry of rhabdomyolysis due to statin,History of CAD (coronary artery disease),High cholesterol Take 2 capsules (2 g) by mouth with breakfast and with evening meal. 120 capsule 11 12/06/19 25 2025 Active levothyroxine (Synthroid) 75 MCG tablet Take 1 tablet (75 mcg) by mouth before breakfast. 30 tablet 02/02/20 25 2025 Active evolocumab (Repatha SureClick) 140 MG/ML injectionIndicati ons:Type 2 diabetes mellitus without complication, without long-term current use of insulin ([facility]),Hypertr iglyceridemia,Hig h cholesterol,Histo ry of PR (myocardial infarction) Inject 1 mL (140 mg) under the skin every 14 (fourteen) days. 2 mL 5 06/08/20 25 Active metoprolol tartrate (Lopressor) 25 MG tabletIndications :Essential hypertension,Hist ory of PR (myocardial infarction) Take 1 tablet (25 mg) by mouth 2 times daily. 180 tablet 06/08/20 25 Active losartan (Cozaar) 25 MG tabletIndications :Type 2 diabetes mellitus without complication, without long-term current use of insulin ([facility]),Essenti al hypertension,Hist ory of PR (myocardial infarction) Take 1 tablet (25 mg) by mouth Once per day. 90 tablet 06/08/20 25 2025 Active aspirin (Aspirin Low Dose) 81 MG EC tabletIndications :Type 2 diabetes mellitus without complication, without long-term current use of insulin ([facility]),History of PR (myocardial infarction) Take 1 tablet (81 mg) by mouth Once per day. 90 tablet 06/08/20 25 Active aspirin (Aspirin Low Dose) 81 MG EC tablet Take 1 tablet (81 mg) by mouth Once per day. 30 tablet 05/31/202024 Discontinued(R eorder (will not trigger notification to Pharmacy)) losartan (Cozaar) 25 MG tablet Take 1 tablet (25 mg) by mouth Once per day. 30 tablet 05/31/20 24 2024 Discontinued(R eorder (will not trigger notification to Pharmacy)) metoprolol tartrate (Lopressor) 25 MG tabletIndications :Essential hypertension Take 1 tablet (25 mg) by mouth 2 times daily. 60 tablet 05/31/20 24 2024 Discontinued(R eorder (will not trigger notification to Pharmacy)) ezetimibe (Zetia) 10 MG tablet Take 1 tablet (10 mg) by mouth Once per day. 30 tablet 02/02/20 25 2024 Discontinued(A lternate therapy) Active Problems Problem Noted Date Diagnosed Date Coronary arteriosclerosis 08/19/20232022 Myocardial infarction 08/19/2023 08/19/2023 Overview (08/19/2023): inferior STEMI 2019 with subsequent PCI and 2 POLO to RCA he has residual LAD disease. He had rhabdomyolisis on statin in the past. History of rhabdomyolysis due to statin 08/19/20 23 Psoriasis 08/19/2023 Acquired hypothyroidism 10/14/2018 08/19/20 Type 2 diabetes mellitus 08/15/2018 CKD (chronic kidney disease) stage 3, GFR 30-59 ml/min 12/22/2017 08/19/2023 Essential hypertension 12/22/2017 Obesity (BMI 30-39.9) 12/22/2017 11/17/2023 Hypertriglyceridemia 04/11/2010 08/19/2023 Encounters Date Type Department Care Team Description 06/08/2025 Travel 06/01/2025 Telephone [facility] [address] [place] [phone] Ysabel Erazo [place] july recalls 06/01/2025 Travel 04/24/2025 Orders Only [facility] [address] [place] [address] [phone] Popeye Hernadez MD 04/10/2025 9:00 AM EDT Office Visit [facility] [address] [place] [phone] Popeye Hernadez MD Type 2 diabetes mellitus without complication, without long-term current use of insulin ([facility]) (Primary Dx); Essential hypertension; Coronary arteriosclerosis; Acquired hypothyroidism; Screening for colon cancer 04/10/2025 Travel 04/09/2025 Telephone [facility] [address] [place] [phone] Popeye Hernadez MD Chart Prep 04/09/2025 Travel from Last 3 Months Immunizations Immunization Administration Dates Next Due Influenza injectable quadrivalent [...] housing situation today? 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 Not on file Not on file Last Filed Vital Signs Vital Sign Reading Time Taken Comments Blood Pressure 122/70 06/08/2025 9:24 AM EDT Pulse 61 06/08/2025 9:24 AM EDT Temperature 36.6 C (97.9 F) 04/10/2025 9:08 AM EDT Respiratory Rate 12 04/10/2025 9:08 AM EDT Oxygen Saturation 99% 04/10/2025 9:08 AM EDT Inhaled Oxygen Concentration - - Weight 88.5 kg (195 lb) 04/10/2025 9:08 AM EDT Height 172.7 cm (5' 8 ) 04/10/2025 9:08 AM EDT Body Mass Index 29.65 04/10/2025 9:08 AM EDT Plan of Treatment Upcoming Encounters Date Type Department Care Team (Late st Contact Info) Description 08/23/2025 9:15 AM EDT Office Visit [facility] [address] [place] [address]00 Name, MD Popeye [address] [place] [address] 09/17/2025 9:00 AM EST Medication Management [address] [phone] Nora Johansen, PharmD [address] [place], [place] [phone] Health Maintenance Due Date Last Done Comments CT Colonography 1960 Colonoscopy 1960 FIT 1960 Sigmoidoscopy 1960 Alcohol/Substance Use Screening 1972 Hepatitis C Screening 02/28/1978 Pneumococcal Vaccine: 50+ Years (1 of 2 - PCV) 02/28/1979 Zoster Vaccines (1 of 2) 02/28/2010 RSV Patients and Patients Aged 60 years or older (1 - Risk 60-74 years 1-dose series) 2020 Diabetes: Foot Exam 11/17/2024 11/17/2023, 11/17/2023, 11/17/2023, Additional history exists COVID-19 Vaccine ( season) 2025 08/21/2021, 02/16/2021, 01/27/2021 Influenza Vaccine (#1) 2025 , 08/13/2020, 09/24/2015, Additional history exists Diabetes: Hemoglobin A1C 12/09/2025 08/2 025, 12/06/2024, 07/31/2024, Additional history exists Depression Screening 12/26/2025 12/26/2024, 12/27/19 SDOH Screening 12/26/2025 12/26/2024 Tobacco Screening 04/10/2026 04/10/2025 FOBT 04/23/2026 04/23/2025, 03/19/2022 Diabetes: Urine Protein Screening 04/24/2026 04/24/2025, 11/17/2023, 02/27/2022, Additional history exists Lipid Panel 04/24/2026 04/24/2025, 01/23, 09/06/2024, Additional history exists Eye Exam 11/17/2026 11/17/2024, 10/26, 11/17/2024, Additional history exists Colorectal Cancer Screening 04/23/2028 FIT DNA/Cologuard 04/23/2028 04/23/2025, 03/19/2022 DTaP/Tdap/Td Vaccines (3 - Td or Tdap) 07/31/2034 07/31/2024, 04/23/2014 HIB Vaccines Aged Out No longer eligi [...] patient's age to complete this topic Meningococcal B Vaccine Aged Out No l onger eligible based on patient's age to complete [...] Name Priority Date/Time Associated Diagnosis Comments POCT GLYCATED HEMOGLOBIN, TOTAL Routine 06/08/2025 1:48 PM EDT Type 2 diabetes mellitus without complication, without long-term current use of insulin ([facility]) LIPID PANEL WITH REFLEX TO DIRECT LDL Routine 04/24/2025 11:30 AM EDT HEPATIC FUNCTION PANEL Routine 04/24/2025 11:30 AM EDT ALBUMIN, RANDOM URINE W/CREATININE Routine 04/24/2025 11:30 AM EDT TSH W/REFLEX TO FT4 Routine 04/24/2025 11:30 AM EDT Type 2 diabetes mellitus without complication, without long-term current use of insulin (CMS/HCC) Essential hypertension Coronary arteriosclerosis Acquired hypothyroidism BASIC METABOLIC PANEL Routine 04/24/2025 11:30 AM EDT Type 2 diabetes mellitus without complication, without long-term current use of insulin (CMS/HCC) Essential hypertension Coronary arteriosclerosis Acquired hypothyroidism LAB COLOGUARD COLON CANCER SCREEN Routine 04/23/2025 12:30 PM EDT Screening for colon cancer POCT GLUCOSE Routine 04/10/2025 9:09 AM EDT Type 2 diabetes mellitus without complication, without long-term current use of insulin (CMS/HCC) from Last 3 Months Results * (ABNORMAL) POCT HGB A1C (06/08/2025 1:48 PM EDT) Hemoglobin A1C 5.8(A) 4.0 - 5.7 % Blood 06/08/2025 1:48 PM EDT us Popeye Hernadez MD POINT OF CARE TEST ENTER/EDIT OR DERABLES Final Result * TSH W/Reflex to FT4 (04/24/2025 11:30 AM EDT) TSH reflex Free T4 1.64 0.32 - 4.0 uIU/mL [facility] Blood Venous blood specimen / Unknown 04/24/2025 11:30 AM EDT 04/24/2025 12:58 PM EDT us Popeye Hernadez MD LAB BLOOD ORDERABLES Final Resul t [facility] [address] [place] [phone] [phone] * (ABNORMAL) Lipid Panel with Reflex to Direct LDL (04/24/2025 11:30 AM EDT) Triglycerides 166(H) <150 mg/dL [facility] Comment:Desirable Triglyceri de: less than 150 mg/dLBorderline High Triglyceride 150-199 mg/dLHigh Triglyceride: 200-499 mg/dLVery High Triglyceride: greater than or equal to 5OO mg/dL Cholesterol 253(H) <200 mg/dL [facility] Comment:Desirable Cholestero l: less than 200 mg/dLBorderline High Cholesterol: 200-239 mg/dLHigh Cholesterol: greater than 239 mg/dL LDL Cholesterol Calculated 179(H) <100 mg/dL [facility] Comment:Desirable LDL: less than 100 mg/dLNear Optimal/Above Optimal LDL: 110- 129 mg/dLBorderline High LDL: 130-159 mg/dLHigh LDL: 160-189 mg/dLVery High LDL: greater than or equal to 190 mg/dL HDL Cholesterol 41 >40 mg/dL [facility] Comment:Desirable HDL: great er than 40 mg/dL Note: This HDL assay may give artificially low results in patients with liver disease. 04/24/2025 11:3 0 AM EDT 04/24/2025 12:58 PM EDT us Popeye Name MD LAB BLOOD ORDERABLES Final Resul t [facility] [address] [place] [address] [phone] * Albumin, Random Urine W/Creatinine (04/24/2025 11:30 AM EDT) Creatinine, Urine 104.66 mg/dL [facility] Microalbumin Urine 18.0 mg/L [facility] Microalbum Creatinine Ratio Ur 17.1 <30 ug/mg cr [facility] Comment:Albumin/Creatinine R atio Reference Ranges: Normal: < 30 ug/mg creatinine Microalbuminuria: 30 - 300 ug/mg creatinineClinical Albuminuria: > 300 ug/mg creatinine 04/24/2025 11:3 0 AM EDT 04/24/2025 12:54 PM EDT us Popeye Hernadez MD LAB URINE ORDERABLES Final Resul t Performing Organization Address [facility] Phone Number [facility] [address] [place] [phone] * Hepatic Function Panel (04/24/2025 11:30 AM EDT) Bilirubin, Total 1.0 0.0 - 1.0 mg/dL [facility] Bilirubin, Direct 0.3 0.0 - 0.5 mg/dL [facility] Aspartate Amino Transferase 27 5 - 37 U/L [facility] Alanine Aminotransferase 21 0 - 40 U/L [facility] Total Protein 7.3 6.5 - 8.0 g/dL [facility] Albumin Level 4.2 3.5 - 5.0 g/dL [facility] Alkaline Phosphatase 56 39 - 117 U/L [facility] 04/24/2025 11:3 0 AM EDT 04/24/2025 12:58 PM EDT us Popeye Hernadez MD LAB BLOOD ORDERABLES Final Resul t Performing Organization Address [facility] Phone Number [facility] [address] [place] [phone] * (ABNORMAL) Basic Metabolic Panel (04/24/2025 11:30 AM EDT) Sodium 140 135 - 145 mmol/L [facility] Potassium 4.3 3.3 - 5.1 mmol/L [facility] Chloride 104 96 - 108 mmol/L [facility] Carbon Dioxide 29 22 - 29 mmol/L [facility] Anion Gap 11(L) 12 - 20 [facility] Urea Nitrogen (BUN) 19(H) 9 - 16 mg/dL [facility] Creatinine, Serum 1.05 0.5 - 1.4 mg/dL [facility] Estimated Glomerular Filt Rate >60 [facility] Comment:Chronic Kidney Disea se: Estimated GFR < 60 mL/min/[id number] Kidney Disease: Estimated GFR < 15 mL/min/1.73m2 Glucose 121(H) 60 - 115 mg/dL [facility] Calcium 8.9 8.4 - 10.2 mg/dL [facility] Blood Venous blood specimen / Unknown 04/24/2025 11:30 AM EDT 04/24/2025 12:58 PM EDT us Popeye Hernadez MD LAB BLOOD ORDERABLES Final Resul t [facility] [address] [place] [phone] * Cologuard?? colon cancer screening (04/23/2025 12:30 PM EDT) Cologuard Result Negative Negative 04/27/20 12:34 AM EDT [email or web address] (CLIA #:[id number]) Comment: The Cologuard (TM) test was performed on this specimen. NEGATIVE TEST RESULT. A negative Cologuard result indicates a low likelihood that a colorectal cancer (CRC) or advanced adenoma (adenomatous polyps with more advanced pre-malignant features) is present. The chance that a person with a negative Cologuard test has a colorectal cancer is less than 1 in 1500 (negative predictive value >99.9%) or has an advanced adenoma is less than 5.3% (negative predictive value 94.7%). These data are based on a prospective cross-sectional study of 10,000 individuals at average risk for colorectal cancer who were screened with both Cologuard and colonoscopy. (Brie Stephen al, N Engl J Med 2014;370(14):1286- 1297) The normal value (reference range) for this assay is negative. COLOGUARD RE-SCREENING RECOMMENDATION: Periodic colorectal cancer screening is an important part of preventive healthcare for asymptomatic individuals at average risk for colorectal cancer. Following a negative Cologuard result, the [place] [employer] Society and U.S. Multi-Society Task Force screening guidelines recommend a Cologuard re-screening interval of 3 years. References: [place] [employer] Guideline for Colorectal Cancer Screening: https://www.cancer.org/cancer/folvn-pappcx-humotn/xaqialmvc-tynkpylrg-ymmilyt/ac s-rec ommendations.html.; Remi DK, Es CR, Rebecca SanchezK, Colorectal Cancer Screening: Recommendations for Physicians and Patients from the U.S. Multi-Society Task Force on Colorectal Cancer Screening , Am J Gastroenterology 2017; 112:8126-1703. TEST DESCRIPTION: Composite algorithmic analysis of stool DNA-biomarkers with hemoglobin immunoassay. Quantitative values of individual biomarkers are not reportable and are not associated with individual biomarker result reference ranges. Cologuard is intended for colorectal cancer screening of adults of either sex, 45 years or older, who are at average-risk for colorectal cancer (CRC). Cologuard has been approved for use by the U.S. FDA. The performance of Cologuard was established in a cross sectional study of average-risk adults aged 50-84. Cologuard performance in patients ages 45 to 49 years was estimated by sub-group analysis of near-age groups. Colonoscopies performed for a positive result may find as the most clinically significant lesion: colorectal cancer [4.0%], advanced adenoma (including sessile serrated polyps greater than or equal to 1cm diameter) [20%] or non- advanced adenoma [31%]; or no colorectal neoplasia [45%]. These estimates are derived from a prospective cross-sectional screening study of 10,000 individuals at average risk for colorectal cancer who were screened with both Cologuard and colonoscopy. (Brie Stephen al, N Engl J Med 2014;370(14):8758-8958.) Cologuard may produce a false negative or false positive result (no colorectal cancer or precancerous polyp present at colonoscopy follow up). A negative Cologuard test result does not guarantee the absence of CRC or advanced adenoma (pre-cancer). The current Cologuard screening interval is every 3 years. ([place] [employer] Society and U.S. Multi-Society Task Force). Cologuard performance data in a 10,000 patient pivotal study using colonoscopy as the reference method can be accessed at the following location: www.[employer]/results. Additional description of the Cologuard test process, warnings and precautions can be found at www.cologuard.com. Stool specimen (specimen) 04/23/2025 12:30 PM EDT 04/24/2025 10:38 AM EDT us Popeye Hernadez MD LAB MOLECULAR DIAGNOSTICS ORDERA BLES Final Result [email or web address] (CLIA #:[id number]) [address] [place] [address], * POCT Glucose (04/10/2025 9:09 AM EDT) Glucose Blood, POC 133 60 - 200 mg/dL QC Media Lot # [id number] Lot# Expiration Date Blood Capillary blood specimen / Unknown 04/10/2025 9:09 AM EDT Popeye Hernadez MD POINT OF CARE TEST ENTER/EDIT OR DERABLES Final Result from Last [address] [place] [address] PPO Care Teams Furnace Charger Relationship Specialty Start Date End Date Name, MD Popeye [address] [place] [address] PCP - General Family Medicine 01/15/16 Nora Johansen PharmD [address] [place] [address] Pharmacist Internal Medicine 12/06/24
--- OUTSIDE RECORDS SUMMARY | 2025-06-28 07:47 | XMS_ITS | Encounter Summary ---
Author Organization [employer] Address [address] [place] [address] 7[address] [place] [address] Care Team Providers Care E Commerce Project Manager Name Role Phone Name, Popeye ASIF Primary Care Provider [phone] Nora Johansen PharmD Unavailable [phone] Encounter Details Date Type Department Care Team (Late st Contact Info) Description 11/25/2022 Orders Only [facility] [address] [place], [place] [phone] Loni Mejia LPN Social History Tobacco Use [...] Description 08/23/2025 9:15 AM EDT Office Visit [facility] MEDICINE [address] [place] [address] Name, MD Popeye [address] [place] [phone] 09/17/2025 9:00 AM EST Medication Management [facility] [address] [place] [phone] Nora Johansen, PharmD [address] [place] [address] documented as of this encounter Procedures Procedure Name Priority Date/Time Associated Diagnosis Comments T4, FREE Routine 08/19/2023 10:23 AM EDT documented in this encounter Results * T4, Free (08/19/2023 10:23 AM EDT) Free T4 (Free Thyroxine) 0.78 0.71 - 1.85 ng/dL [facility] 08/19/2023 10:2 3 AM EDT 08/19/2023 11:33 AM EDT us Popeye Name LAB BLOOD ORDERABLES Final Resul t [facility] [address] [place] [phone] documented in this encounter Visit Diagnoses Not on filedocumented in this encounter Care Teams E Commerce Project Manager Relationship Specialty Start Date End Date Name, MD Popeye [address] [place] [address] PCP - General Family Medicine 01/15/16 Nora Johansen PharmD [address] [place] [address] Pharmacist Internal Medicine 12/06/24 documented as of this encounter
--- OUTSIDE RECORDS SUMMARY | 2025-06-28 07:47 | XMS_ITS | Encounter Summary ---
Author Organization [employer] Address [address] [facility] 7t [place] [address] Care Team Providers Care Gas Operation Manager Name Role Phone Name, Popeye ASIF Primary Care Provider Nora Johansen PharmD Unavailable [phone] Reason for Visit * Reason Onset Date Comments Appointment Request 11/28/2024 Encounter Details Date Type Department Care Team ([facility] Contact Info) Description 11/28/2024 Telephone [facility] MEDICINE [address] [place], [place] [phone] Name, MD Popeye [address] [place] [address] Appointment Request Social History Tobacco Use Types [...] him for a while. Contact pt at [phone] documented in this encounter Plan of Treatment Upcoming Encounters Date Type Department Care Team (Late st Contact Info) Description 08/23/2025 9:15 AM EDT Office Visit [facility] MEDICINE [address] [place] [phone] Name, MD Popeye [address] [place] [phone] 09/17/2025 9:00 AM EST Medication Management [facility] [address] [place] [address] Nora Johansen, SamuelD [address] [place] [address] documented as of this encounter Visit Diagnoses Not on filedocumented in this encounter Additional Health Concerns Assessment Noted Time PHQ-9 Depression Total Score: 0 08/19/20 10:12 AM EDT documented as of this encounter Care Teams Gas Operation Manager Relationship Specialty Start Date End Date Name, MD Popeye [address] [place] [address] PCP - General Family Medicine 01/15/16 Nora Johansen PharmD [address] [place] [address] Pharmacist Internal Medicine 12/06/24 documented as of this encounter
--- OUTSIDE RECORDS SUMMARY | 2025-06-28 07:47 | XMS_ITS | Clinical Summary ---
Author Organization [facility] Address [address] [facility] [address] [place] [address] Phone Care Team Providers Care Retail Sales Director Name Role Phone Pcp, Not Required Primary Care Provider Unavaila ble Social History Tobacco Use Types Packs/Day Years Used Date Smoking Tobacco: Never Assessed Education Answer Date Recorded Are you interested in more education? Not on kaylee e 02/19/2023 Are you concerned about learning? Not on file 02/19/2023 No 02/19/2023 No 02/19/2023 Digital Access Answer Date Recorded No 03/20/2023 No 03/20/2023 No 03/20/2023 Reliable internet access at home? Not on file 03/20/2023 Device with a working camera? Not on file Sex and Gender Information Value Date Recorded Sex Assigned at Not on file Legal Sex Male 4:12 PM EST Gender Identity Not on file Sexual Orientation Not on file Plan of Treatment Health Maintenance Due Date Last Done Comments LIPID PANEL 1960 DEPRESSION SCREENING 1972 SMOKING Hx and SMOKELESS TOBACCO SCREENING 02/28/1973 HEPATITIS C SCREENING 02/28/1978 HIV ONE-TIME SCREENING (18-6 5 YEARS) 02/28/1978 COLOGUARD 02/28/2005 COLONOSCOPY 02/28/2005 COLORECTAL CANCER SCREENING 02/28/2005 FIT TEST 02/28/2005 FOBT 02/28/2005 SIGMOIDOSCOPY 02/28/2005 VIRTUAL COLONOSCOPY 02/28/2005 PNEUMOCOCCAL VACCINES (50+ years) (1 of 1 - PCV) 02/28/2010 ZOSTER VACCINES (1 of 2) 02/28/2010 Adult Td,Tdap Booster 04/23/2024 04/23/2014 INFLUENZA VACCINE (#1) 2025 0, 09/24/2015 COVID-19 VACCINE (3 - 2024-2 6 season) 2025 02/16/2021, 01/27/2021 RSV VACCINE (1 - 1-dose 75+ series) 02/28/2035 HEPATITIS A VACCINES Aged Out No long er eligible based on patient's age to complete this topic HIB VACCINES Aged Out No longer eligi ble based on patient's age to complete this topic MENINGOCOCCAL VACCINES (ACWY) Aged Out No longer eligible based on patient's age to complete this topic MENINGOCOCCAL VACCINES (B) Aged Out N o longer eligible based on patient's age to complete this topic Medical Devices Not on file Insurance PPO PPO PPO BLUE CROSS OUT OF STATE PPO BLUE CROSS OUT OF STATE PPO BLUE [employer]OSS OUT OF STATE PPO OUT OF [employer] PPO OUT OF [employer] PPO OUT OF [employer] PPO Care Teams Retail Sales Director Relationship Specialty Start Date End Date Pcp, Not Required [address] [place] [phone] PCP - General 11/30/19 Additional Source Comments The information contained in this document represents components of the legal health record. It is not the complete legal health record.[facility]
--- OUTSIDE RECORDS SUMMARY | 2025-06-28 07:47 | XMS_ITS | Encounter Summary ---
Author Organization [employer] Address [address] [place] [address] 7 [place] [address] Care Team Providers Care Day Care Aide Name Role Phone Name, Popeye ASIF Primary Care Provider [phone] Nora Johansen PharmD Unavailable [phone] Encounter Details Date Type Department Care Team ([facility] st Contact Info) Description 09/08/2024 Orders Only [facility] CHC MED & PEDS [address] [place], [place] [phone] Juan Carlos Muhammad MD [address] [place] [address] Social History Tobacco Use Types Packs/Day Years [...] 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 Not on file Not on file documented as of this encounter Plan of Treatment Upcoming Encounters Date Type Department Care Team (Late st Contact Info) Description 08/23/2025 9:15 AM EDT Office Visit [facility] MEDICINE [address] [place] [phone] Name, MD Popeye [address] [place] [phone] 09/17/2025 9:00 AM EST Medication Management [facility] MEDICINE [address] [place] [phone] Nora Johansen PharmD [address] [place] [address] documented as of this encounter Visit Diagnoses Not on filedocumented in this encounter Additional Health Concerns Assessment Noted Time PHQ-9 Depression Total Score: 0 08/19/20 23 10:12 AM EDT documented as of this encounter Care Teams Day Care Aide Relationship Specialty Start Date End Date NamePopeye MD [address] [place] [phone] PCP - General Family Medicine 01/15/16 Nora Johansen PharmD [address] [place] [phone] Pharmacist Internal Medicine 12/06/24 documented as of this encounter
--- OUTSIDE RECORDS SUMMARY | 2025-06-28 07:47 | XMS_ITS | Encounter Summary ---
Author Organization [employer] Address [address] [facility] [address] [place] [address] Care Team Providers Care Wire Photo Operator News Name Role Phone Name, Popeye ASIF Primary Care Provider [phone] Nora Johansen PharmD Unavailable [phone] Reason for Visit * Reason Onset Date Comments Med Refill 01/21/2024 Encounter Details Date Type Department Care Team (Late st Contact Info) Description 01/21/2024 Refill [facility] MEDICINE [address], [place] [phone] Name, MD Popeye [address] [place] [address] Hypertension, unspecified type; Coronary artery disease involving [place] coronary artery of [place] heart without angina pectoris Social History Tobacco [...] 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 Not on file Not on file documented as of this encounter Plan of Treatment Upcoming Encounters Date Type Department Care Team (Late st Contact Info) Description 08/23/2025 9:15 AM EDT Office Visit [facility] MEDICINE [address] [place] [phone] NamePopeye MD [address] [place] [phone] 09/17/2025 9:00 AM EST Medication Management [facility] MEDICINE [address] [place] [phone] Nora Johansen PharmD [address] [place] [phone] documented as of this encounter Visit Diagnoses Diagnosis Hypertension, unspecified type Coronary artery disease involving [place] coronary artery of [place] heart without angina pectoris documented in this encounter Additional Health Concerns Assessment Noted Time PHQ-9 Depression Total Score: 0 08/19/20 10:12 AM EDT documented as of this encounter Care Teams Wire Photo Operator News Relationship Specialty Start Date End Date Popeye Hernadez MD [address] [place] [phone] PCP - General Family Medicine 01/15/16 Nora Johansen PharmD [address] [place] [phone] Pharmacist Internal Medicine 12/06/24 documented as of this encounter
== END 2025-06-28 08:18 | disposition home or self-care (01) ==
LOC: HO.HUSH 07:44
PROVIDERS: PCP Internal Medicine Geriatric Medicine; Visit Provider Urology
DX: N32.89 Other specified disorders of bladder (principal); N28.1 Cyst of kidney, acquired; Z87.891 Personal history of nicotine dependence; N40.0 Benign prostatic hyperplasia without lower urinary tract symptoms; R31.9 Hematuria, unspecified; Z13.9 Encounter for screening, unspecified
CPT/HCPCS: 99214

== ENCOUNTER 2025-06-28 07:44 | Outpatient (REF) | payer BC, SELFPAY | END 2025-06-28 07:45 | disposition home or self-care (01) | LOC: HO.LAB 07:44 | PROVIDERS: PCP Internal Medicine Geriatric Medicine; Visit Provider Urology | DX: N40.0 Benign prostatic hyperplasia without lower urinary tract symptoms (principal); N48.1 Balanitis; N32.89 Other specified disorders of bladder; N28.1 Cyst of kidney, acquired; R31.0 Gross hematuria; Z87.891 Personal history of nicotine dependence; Z79.82 Long term (current) use of aspirin | CPT/HCPCS: 81003; 88112 ==

== ENCOUNTER 2025-06-28 08:29 | Outpatient (REF) | payer BC, SELFPAY ==
--- OUTSIDE RECORDS SUMMARY | 2025-06-28 08:57 | XMS_ITS | Encounter Summary ---
Author Organization [facility] Address [address] [place] [address] Care Team Providers Care Research Analyst Name Role Phone Name, Popeye ASIF Primary Care Provider Unavailabl e Name, Popeye ASIF Primary Care Provider Unavailabl e Encounter Details Date Type Department Care Team Description 09/12/2010 Hospital Medical Records [address] [place] [address] Marcin Louis Social History Tobacco Use Types Packs/Day Years Used Date Smoking Tobacco: Former Cigarettes 0.5 10 Q uit: 03/14/2005 Smokeless Tobacco: Never Comments:4 yrs Alcohol Use Standard Drinks/Week Comments No 0 (1 standard drink = 0.6 oz pur e alcohol) Sex Assigned at Date Recorded Not on file documented as of this encounter Plan of Treatment Not on file documented as of this encounter Visit Diagnoses Not on filedocumented in this encounter Care Teams Research Analyst Relationship Specialty Start Date End Date Popeye Hernadez MD PCP - General 03/12/10 03/19/16 Popeye Hernadez MD PCP - General Internal Medicine 03/20/16 documented as of this encounter
--- OUTSIDE RECORDS SUMMARY | 2025-06-28 08:57 | XMS_ITS | Encounter Summary ---
Author Organization [facility] Address [facility] [place] [address] Care Team Providers Care Theatrical Variety Agent Name Role Phone Name, Popeye ASIF Primary Care Provider Unavailabl e Encounter Details Date Type Department Care Team Description 03/18/2017 Release of Information Medical Records [address] [place] [id number] Abstract, Provider Social History Tobacco Use Types Packs/Day Years [...] on filedocumented in this encounter Care Teams Theatrical Variety Agent Relationship Specialty Start Date End Date NamePopeye MD PCP - General Internal Medicine 03/20/16 documented as of this encounter
--- OUTSIDE RECORDS SUMMARY | 2025-06-28 08:57 | XMS_ITS | Clinical Summary ---
Author Organization [facility] Address [address] [place] [address] Care Team Providers Care Artillery Specialist Name Role Phone Name, Popeye ASIF Primary Care Provider Unavailabl e Allergies No known active allergies Medications Medication Sig Dispensed Refills Start Date End Date Status simvastatin (ZOCOR) 20 MG tablet Take 1 Tab by mouth at bedtime. 30 Tab 5 09/24/2015 Active Active Problems Problem Noted Date High cholesterol 04/11/2010 Resolved Problems Problem Noted Date Resolved Date Diabetes mellitus type II, uncontrolled 04/11/20 10 07/11/2010 HTN (hypertension) 04/11/2010 07/11/2010 Immunizations Name Administration Dates Next Due Influenza (> 6 Months) 09/24/2015 Tdap 04/23/2014 Family History Relation Name Status Comments Father not known Mother DM Sister DM Son 1 Alive Son 2 Alive Son 3 Alive Son 4 Alive Son 5 Alive Son 6 Alive Social History Tobacco Use Types Packs/Day Years Used Date Smoking Tobacco: Former Cigarettes 0.5 10 Q uit: 03/14/2005 Smokeless Tobacco: Never Comments:4 yrs Alcohol Use Standard Drinks/Week Comments No 0 (1 standard drink = 0.6 oz pur e alcohol) Sex Assigned at Date Recorded Not on file Last Filed Vital Signs Vital Sign Reading Time Taken Comments Blood Pressure 110/60 09/24/2015 4:07 PM EST Pulse 72 09/24/2015 4:07 PM EST Temperature 36.8 C (98.2 F) 09/24/2015 4:07 PM EST Respiratory Rate 16 09/24/2015 4:07 PM EST Oxygen Saturation 96% 06/09/2011 3:04 PM EDT Inhaled Oxygen Concentration - - Weight 96.9 kg (213 lb 9.6 oz) 09/24/2015 4:07 P M EST Height 172.7 cm (5' 8 ) 09/24/2015 4:07 PM EST Body Mass Index 32.48 09/24/2015 4:07 PM EST Plan of Treatment Health Maintenance Due Date Last Done Comments Covid-19 Vaccine (#1) 1960 TOBACCO CHECK/ADVISE 02/28/1978 SHINGLES VACCINE (1 of 2) 02/28/2010 CHOLESTEROL SCREENING 09/24/2020 09/24/2015 , 03/25/2015, 04/23/2014, Additional history exists COLON CANCER SCREENING 06/09/2021 06/09/2011 DTAP/TDAP/TD (2 - Td or Tdap) 04/23/2024 04/23/2014 BMI CHECK/ADVISE 10/25/2024 03/25/2015 PNEUMOCOCCAL VACCINE (1 - PCV) 02/28/2025 INFLUENZA (#1) 2025 09/24/2015 HEPATITIS C SCREENING Completed 03/25/2015, 013 Care Teams Artillery Specialist Relationship Specialty Start Date End Date Name, MD Popeye PCP - General Internal Medicine 03/20/16
--- OUTSIDE RECORDS SUMMARY | 2025-06-28 08:57 | XMS_ITS | Encounter Summary ---
Author Organization [facility] Address [address] [place] [address] Care Team Providers Care Dope Firer Name Role Phone Name, Popeye ASIF Primary Care Provider Unavailabl e Name, Popeye ASIF Primary Care Provider Unavailabl e Reason for Visit * Reason Onset Date Comments Call-returning From Provider 04/23/2014 Encounter Details Date Type Department Care Team Description 04/23/2014 Telephone Adult [address] [address] Popeye Hernadez MD Call-returning From Provider Social History Tobacco Use Types Packs/Day Years Used Date Smoking Tobacco: Former Cigarettes 0.5 10 Q uit: 03/14/2005 Smokeless Tobacco: Never Comments:4 yrs Alcohol Use Standard Drinks/Week Comments No 0 (1 standard drink = 0.6 oz pur e alcohol) Sex Assigned at Date Recorded Not on file documented as of this encounter Miscellaneous Notes * Telephone Encounter - Ana Laura José M.A. - 04/23/2014 4:10 PM EDT Result Notes Notes Recorded by Carol Quevedo M.A. on 04/23/2014 at 3:13 PM [phone] (home) Left a message for the patient to return my call. ------ Notes Recorded by Poepye Hernadez MD on 04/23/2014 at 2:18 PM Please call the patient. His cholesterol continues to be very high. I recommended to restart using cholesterol-lowering medication daily for prevention of heart attacks and strokes. Recent Review Flowsheet Data * Telephone Encounter - Linda Luis - 04/23/2014 3:23 PM EDT patient returned a call from [place] from Dr Hernadez's office. documented in this encounter Plan of Treatment Not on file documented as of this encounter Visit Diagnoses Not on filedocumented in this encounter Care Teams Dope Firer Relationship Specialty Start Date End Date Popeye Hernadez MD PCP - General 03/12/10 03/19/16 Popeye Hernadez MD PCP - General Internal Medicine 03/20/16 documented as of this encounter
[2025-06-28 10:50] LABS: Hemoglobin A1C 138.2225 umol/L; Total Hemoglobin (HGBA1C) 3469.3007 umol/L
== END 2025-06-28 08:30 | disposition home or self-care (01) ==
LOC: HO.10HDL 08:29
PROVIDERS: Visit Provider Urology
DX: N28.1 Cyst of kidney, acquired (principal); N32.89 Other specified disorders of bladder; N48.1 Balanitis; Z13.89 Encounter for screening for other disorder; Z13.1 Encounter for screening for diabetes mellitus
CPT/HCPCS: 36415; 82947; 83036

== ENCOUNTER 2025-08-29 09:14 | Outpatient (REF) | payer BC, SELFPAY ==
--- OUTSIDE RECORDS SUMMARY | 2025-08-29 10:04 | XMS_ITS | Clinical Summary ---
Author Organization [employer] Address [address] [place] [address] 7t [place] [address] Care Team Providers Care Scientologist Name Role Phone Name, Popeye ASIF Primary Care Provider [phone] Nora Johansen PharmD Unavailable [phone] Allergies Active Allergy Reactions Criticality Noted Date Comments Atorvastatin 10/03/2019 Other reaction(s): Rhabdomyolysis Medications Blood Pressure kitIndications:Typ e 2 diabetes mellitus without complication, without long-term current use of insulin ([facility]),Essential hypertension Use to check home BP daily as directed 1 kit 5 Active empagliflozin (Jardiance) 10 MGIndications:Type 2 diabetes mellitus without complication, without long-term current use of insulin ([facility]),Microalbumin uria Take 1 tablet (10 mg) by mouth Once per day. 90 tablet 3 5 12/06/19 26 Active Icosapent Ethyl (Vascepa) 1 g capsuleIndications :Type 2 diabetes mellitus without complication, without long-term current use of insulin ([facility]),Statin intolerance,Histor y of rhabdomyolysis due to statin,History of CAD (coronary artery disease),High cholesterol Take 2 capsules (2 g) by mouth with breakfast and with evening meal. 120 capsule 11 5 12/06/19 26 Active levothyroxine (Synthroid) 75 MCG tablet Take 1 tablet (75 mcg) by mouth before breakfast. 30 tablet 5 02/02/20 26 Active evolocumab (Repatha SureClick) 140 MG/ML injectionIndicatio ns:Type 2 diabetes mellitus without complication, without long-term current use of insulin ([facility]),Hypertriglyc eridemia,High cholesterol,Histor y of CT (myocardial infarction) Inject 1 mL (140 mg) under the skin every 14 (fourteen) days. 2 mL 5 5 Active metoprolol tartrate (Lopressor) 25 MG tabletIndications: Essential hypertension,Histo ry of CT (myocardial infarction) Take 1 tablet (25 mg) by mouth 2 times daily. 180 tablet 3 5 Active losartan (Cozaar) 25 MG tabletIndications: Type 2 diabetes mellitus without complication, without long-term current use of insulin ([facility]),Essential hypertension,Histo ry of CT (myocardial infarction) Take 1 tablet (25 mg) by mouth Once per day. 90 tablet 3 5 06/08/20 26 Active aspirin (Aspirin Low Dose) 81 MG EC tabletIndications: Type 2 diabetes mellitus without complication, without long-term current use of insulin ([facility]),History of CT (myocardial infarction) Take 1 tablet (81 mg) by mouth Once per day. 90 tablet 3 5 Active Active Problems Problem Noted Date Diagnosed Date Coronary arteriosclerosis 08/19/20232022 Myocardial infarction 08/19/2023 08/19/2023 Overview (08/19/2023): inferior STEMI 2019 with subsequent PCI and 2 POLO to RCA he has residual LAD disease. He had rhabdomyolisis on statin in the past. History of rhabdomyolysis due to statin 08/19/20 23 Psoriasis 08/19/2023 Acquired hypothyroidism 10/14/2018 08/19/20 23 Type 2 diabetes mellitus 08/15/2018 023 CKD (chronic kidney disease) stage 3, GFR 30-59 ml/min ([facility]) 12/22/2017 08/19/2023 Essential hypertension 12/22/2017 3 Obesity (BMI 30-39.9) 12/22/2017 11/17/2023 Hypertriglyceridemia 04/11/2010 08/19/2023 Encounters Date Type Department Care Team Description 08/23/2025 9:15 AM EDT Office Visit [facility] MEDICINE [address] [place] [phone] Name, MD Popeye Type 2 diabetes mellitus without complication, without long-term current use of insulin ([facility]) (Primary Dx); Coronary arteriosclerosis; Encounter for immunization 08/23/2025 Travel 08/22/2025 Telephone [facility] MED & PEDS [address] [place] [address] Popeye Hernadez MD Chart Prep 08/16/2025 Patient Outreach [facility] [address] [place] [address] Popeye Hernadez MD Pre-visit Planning (SDOH unable to reach M ) 08/16/2025 Patient Outreach [facility] [address] [place] [address] Popeye Hernadez MD 08/16/2025 Travel 06/28/2025 Orders Only GENERIC EXTERNAL DATA DEPARTMENT Provider, Generic External Data 06/08/2025 Travel 06/01/2025 Telephone [facility] MEDICINE [address] [place] [address] Ysabel Erazo [place] july recalls 06/01/2025 Travel from Last 3 Months Immunizations Immunization Administration Dates Next Due Influenza injectable quadrivalent preservative f ree 08/13/2020,09/24/2015 Influenza, High Dose Seasonal, Preservative Free 08/23/2025 Influenza, IIV3, injectable 09/24/2015 Influenza, seasonal, injectable, preservative fr ee 12/26/2024 Tdap 07/31/2024,04/23/2014 Social History Tobacco Use Types Packs/Day Years Used Date Smoking Tobacco: Former Cigarettes Q uit: 2009 Smokeless Tobacco: Never Tobacco Cessation:Counseling Given: Not Answered Alcohol Use Standard Drinks/Week Comments Never 0 (1 standard drink = 0.6 oz pur e alcohol) Depression Answer Date Recorded Patient Health Questionnaire-9 Score 0 08/23/2025 Patient Health Questionnaire-9 Score 0 08/23/2025 Last PHQ-9: Questionnaire Data Not on file [...] Date Recorded Patient Health Questionnaire-2 Score 0 08/23/2025 Internet Access Answer Date Recorded Internet Access [...] 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 file Not on file Last Filed Vital Signs Vital Sign Reading Time Taken Comments Blood Pressure 133/72 08/23/2025 9:31 AM EDT Pulse 78 08/23/2025 9:31 AM EDT Temperature 36.6 C (97.8 F) 08/23/2025 9:31 AM EDT Respiratory Rate 12 08/23/2025 9:31 AM EDT Oxygen Saturation 97% 08/23/2025 9:31 AM EDT Inhaled Oxygen Concentration - - Weight 84 kg (185 lb 3.2 oz) 08/23/2025 9:31 AM EDT Height 172.7 cm (5' 8 ) 08/23/2025 9:31 AM EDT Body Mass Index 28.16 08/23/2025 9:31 AM EDT Plan of Treatment Upcoming Encounters Date Type Department Care Team (Late st Contact Info) Description 09/17/2025 9:00 AM EST Medication Management [facility] MEDICINE [address] [place] [address] Nora Johansen, PharmD [address] [place], [place] [phone] Health Maintenance Due Date Last Done Comments CT Colonography 1960 Colonoscopy 1960 FIT 1960 Sigmoidoscopy 1960 Hepatitis C Screening 02/28/1978 Pneumococcal Vaccine: 50+ Years (1 of 2 - PCV) 02/28/1979 Zoster Vaccines (1 of 2) 02/28/2010 RSV Patients and Patients Aged 60 years or older (1 - Risk 60-74 years 1-dose series) 2020 Diabetes: Foot Exam 11/17/2024 11/17/2023, 11/17/2023, 11/17/2023, Additional history exists COVID-19 Vaccine ( season) 2025 08/21/2021, 02/16/2021, 01/27/2021 Diabetes: Hemoglobin A1C 12/09/2025 025, 12/06/2024, 07/31/2024, Additional history exists SDOH Screening 12/26/2025 12/26/2024 FOBT 04/23/2026 04/23/2025, 03/19/2022 Diabetes: Urine Protein Screening 04/24/2026 04/24/2025, 11/17/2023, 02/27/2022, Additional history exists Lipid Panel 04/24/2026 04/24/2025, 01/23, 09/06/2024, Additional history exists Alcohol/Substance Use Screening 08/23/2026 08/23/2025 Depression Screening 08/23/2026 08/23/2025, 08/23/20 25 Tobacco Screening 08/23/2026 08/23/2025 Eye Exam 11/17/2026 11/17/2024, 10/26, 11/17/2024, Additional history exists Colorectal Cancer Screening 04/23/2028 FIT DNA/Cologuard 04/23/2028 04/23/2025, 03/19/2022 DTaP/Tdap/Td Vaccines (3 - Td or Tdap) 07/31/2034 07/31/2024, 04/23/2014 Influenza Vaccine Completed 08/23/2025, , 08/13/2020, Additional history exists HIB Vaccines Aged Out [...] Date/Time Associated Diagnosis Comments POCT GLUCOSE Routine 08/23/2025 9:40 AM EDT Type 2 diabetes mellitus without complication, without long-term current use of insulin ([facility]) CYTOPATH-CELL ENHANCED Routine 06/28/2025 5:33 PM EDT POCT GLYCATED HEMOGLOBIN, TOTAL Routine 06/08/2025 1:48 PM EDT Type 2 diabetes mellitus without complication, without long-term current use of insulin ([facility]) ALBUMIN, RANDOM URINE W/CREATININE Routine 04/24/2025 11:30 AM EDT LIPID PANEL WITH REFLEX TO DIRECT LDL Routine 04/24/2025 11:30 AM EDT LAB COLOGUARD COLON CANCER SCREEN Routine 04/23/2025 12:30 PM EDT Screening for colon cancer from Last 3 Months or Most Recently Relevant to Health Maintenance Results * POCT Glucose (08/23/2025 9:40 AM EDT) Glucose Blood, POC 139 60 - 200 mg/dL QC Media Lot # [id number] Lot# Expiration Date Blood Capillary blood specimen / Unknown 08/23/2025 9:40 AM EDT Popeye Hernadez MD POINT OF CARE TEST ENTER/EDIT OR DERABLES Final Result * Cytopath-cell enhanced (06/28/2025 5:33 PM EDT) 06/28/2025 5:33 PM EDT 06/29/2025 8:30 AM EDT Narrative [facility] - 07/02/2025 9:22 AM EDT ----- ------- Name: Isidro Vance Age/Sex: 65/M : 1960 Unit#: [id number] Attend Dr: Shahla Alan MD Re06/28/25 Status: DEP [facility] Disch: ----- ------- SPEC : [id number] RECD: 06/29/25 STATUS: SOUChet REStacy NUM: [id number] EZ: 06/28/[address] [facility] [address]: Shahla Alan MD ENTERED: 06/29/25 SP TYPE: Cytology OT DR: Popeye Hernadez MD ORDERED: Cyto-enhanced Diagnosis Urine: Negative for high-grade urothelial carcinoma. Comment: Examination of monolayer preparation slide shows many benign squamous cells, occasional benign urothelial cells and occasional inflammatory cells and red blood cells. Clinical History Gross hematuria, bladder wall thickening, balanitis, benign prostatic hyperplasia Material Received Urine Gross Description Received is 43 cc of cloudy yellow-montes fluid from which a ThinPrep slide is prepared. IHC S/NG Disclaimer NOTE: Unless otherwise stated, all tissue is formalin-fixed and paraffin-embedded. Some or all of the immunohistochemical tests reported herein may have been developed and their performance characteristics determined by [facility]. They have not been cleared or approved by the U.S. Food and Drug Administration (FDA). However, the FDA has determined that such clearance or approval is not necessary. This laboratory is certified under the Clinical Laboratory Improvement Amendments of 1988 (CLIA) as qualified to perform high complexity clinical laboratory testing. Copies To: Shahla Alan MD [facility] [address] [place] [address] Dr. [place] [address] [place] [id number] [email or web address] Name,Popeye ASIF [address] [address] CONTINUED ON NEXT PAGE ----- ------- Name: Rajiv,Isidro Age/Sex: 65/M : 1960 Unit#: [id number] Attend Dr: Shahla Alan MD Re06/28/25 Status: DEP [facility] Disch: ----- ------- SPEC : [id number] RECD: 06/29/25 STATUS: JEFFREY MCDONOUGH NUM: [id number] EZ: 06/28/[address] [facility] [address]: Shahla Alan MD ENTERED: 06/29/25 SP TYPE: Cytology OTHR DR: Popeye Hernadez MD ORDERED: Cyto-enhanced ----- ------- Signed (signature on file) Renea Zunilda 07/02/25921 ----- ------- END OF REPORT Generic External Data Provider LAB CYTOLOGY GIANLUCAE RABESTEFANIA Final Result [facility] [address] [place] [phone] * (ABNORMAL) POCT HGB A1C (06/08/2025 1:48 PM EDT) Hemoglobin A1C 5.8(A) 4.0 - 5.7 % Blood 06/08/2025 1:48 PM EDT Popeye Hernadez MD POINT OF CARE TEST ENTER/EDIT OR DERABLES Final Result * (ABNORMAL) Lipid Panel with Reflex to Direct LDL (04/24/2025 11:30 AM EDT) Triglycerides 166(H) <150 mg/dL [facility] Comment:Desirable Triglyceri de: less than 150 mg/dLBorderline High Triglyceride 150-199 mg/dLHigh Triglyceride: 200-499 mg/dLVery High Triglyceride: greater than or equal to 5OO mg/dL Cholesterol 253(H) <200 mg/dL [facility] Comment:Desirable Cholestero l: less than 200 mg/dLBorderline High Cholesterol: 200-239 mg/dLHigh Cholesterol: greater than 239 mg/dL LDL Cholesterol Calculated 179(H) <100 mg/dL [facility] Comment:Desirable LDL: less than 100 mg/dLNear Optimal/Above Optimal LDL: 110- 129 mg/dLBorderline High LDL: 130-159 mg/dLHigh LDL: 160-189 mg/dLVery High LDL: greater than or equal to 190 mg/dL HDL Cholesterol 41 >40 mg/dL [facility] Comment:Desirable HDL: great er than 40 mg/dL Note: This HDL assay may give artificially low results in patients with liver disease. 04/24/2025 11:3 0 AM EDT 04/24/2025 12:58 PM EDT us Popeye Name MD LAB BLOOD ORDERABLES Final Resul t [facility] [address] [place] [phone] * Albumin, Random Urine W/Creatinine (04/24/2025 11:30 AM EDT) Creatinine, Urine 104.66 mg/dL [facility] Microalbumin Urine 18.0 mg/L [facility] Microalbum Creatinine Ratio Ur 17.1 <30 ug/mg cr [facility] Comment:Albumin/Creatinine R atio Reference Ranges: Normal: < 30 ug/mg creatinine Microalbuminuria: 30 - 300 ug/mg creatinineClinical Albuminuria: > 300 ug/mg creatinine 04/24/2025 11:3 0 AM EDT 04/24/2025 12:54 PM EDT us Popeye Hernadez MD LAB URINE ORDERABLES Final Resul t [facility] [address] [place], [place] [phone] * Cologuard?? colon cancer screening (04/23/2025 12:30 PM EDT) Cologuard Result Negative Negative 04/27/20 12:34 AM EDT [facility] (CLIA #:[id number]) Comment: The Cologuard (TM) test was performed [...] screened with both Cologuard and colonoscopy. (Brie T. et al, N Engl J Med 2014;370(14):1286- 1297) The normal value (reference range) for this assay is negative. COLOGUARD RE-SCREENING RECOMMENDATION: Periodic colorectal cancer screening is an important part of preventive healthcare for asymptomatic individuals at average risk for colorectal cancer. Following a negative Cologuard result, the [place] [employer] Society and U.S. Multi-Society Task Force screening guidelines recommend a Cologuard re-screening interval of 3 years. References: [place] [employer] Guideline for Colorectal Cancer Screening: https://www.cancer.org/cancer/nxykw-ruagkb-nirurc/gawqhsuic-olnwywxyg-tkhlits/ac s-rec ommendations.html.; Remi MARQUEZ, Es RIBEIRO, Rebecca SANTANA, Colorectal Cancer Screening: Recommendations for Physicians and Patients from the U.S. Multi-Society Task Force on Colorectal Cancer Screening , Am J Gastroenterology 2017; 112:9680-2604. TEST DESCRIPTION: Composite algorithmic analysis of stool [...] screened with both Cologuard and colonoscopy. (Brie Soria et al, N Engl J Med 2014;370(14):1180-9550.) Cologuard may produce a false negative or false positive result (no colorectal cancer or precancerous polyp present at colonoscopy follow up). A negative Cologuard test result does not guarantee the absence of CRC or advanced adenoma (pre-cancer). The current Cologuard screening interval is every 3 years. ([place] [employer] and U.S. Multi-Society Task Force). Cologuard performance data in a 10,000 patient pivotal study using colonoscopy as the reference method can be accessed at the following location: www.Noovo.Cytheris/results. Additional description of the Cologuard test process, warnings and precautions can be found at www.[employer]ideord.com. Stool specimen (specimen) 04/23/2025 12:30 PM EDT 04/24/2025 10:38 AM EDT us Popeye Hernadez MD LAB MOLECULAR DIAGNOSTICS ORDERA BLES Final Result [id number] (CLIA #:[id number]) [address] [place] [id number] [phone] from Last 3 Months or Most Recently Relevant to Health Maintenance Insurance BCBS PPO Care Teams Scientologist Relationship Specialty Start Date End Date Name, MD Popeye [address] [place] [address] PCP - General Family Medicine 01/15/16 Nora Johansen, SamuelD [address] [place] [address] Pharmacist Internal Medicine 12/06/24
--- OUTSIDE RECORDS SUMMARY | 2025-08-29 10:04 | XMS_ITS | Encounter Summary ---
Author Organization [employer] Address [address] [facility] 7t [place] [address] Care Team Providers Care Project Accountant Name Role Phone Name, Popeye ASIF Primary Care Provider Nora Johansen PharmD Unavailable [phone] Encounter Details Date Type Department Care Team (Late st Contact Info) Description 11/25/2022 Orders Only [facility] [address] [place], [place] [phone] Loni Mejia LPN Social History Tobacco Use [...] Description 09/17/2025 9:00 AM EST Medication Management [facility] MEDICINE [address] [place] [address] Nora Johansen, PharmD [address] [place] [address] documented as of this encounter Procedures Procedure Name Priority Date/Time Associated Diagnosis Comments T4, FREE Routine 08/19/2023 10:23 AM EDT documented in this encounter Results * T4, Free (08/19/2023 10:23 AM EDT) Free T4 (Free Thyroxine) 0.78 0.71 - 1.85 ng/dL [facility] 08/19/2023 10:2 3 AM EDT 08/19/2023 11:33 AM EDT us Popeye Hernadez MD LAB BLOOD ORDERABLES Final Resul t [facility] [address] [place] [phone] [phone] documented in this encounter Visit Diagnoses Not on filedocumented in this encounter Care Teams Project Accountant Relationship Specialty Start Date End Date Name, MD Popeye [address] [place] [address] PCP - General Family Medicine 01/15/16 Nora Johansen PharmD [address] [place] [address] Pharmacist Internal Medicine 12/06/24 documented as of this encounter
--- OUTSIDE RECORDS SUMMARY | 2025-08-29 10:04 | XMS_ITS | Encounter Summary ---
Author Organization [employer] Address [address] [facility] 7t [place] [address] Care Team Providers Care Word Processing Machine Operator Name Role Phone Name, Popeye ASIF Primary Care Provider [phone] Nora Johansen PharmD Unavailable [phone] Reason for Visit * Reason Onset Date Comments Appointment Request 11/28/2024 Encounter Details Date Type Department Care Team ([facility] Contact Info) Description 11/28/2024 Telephone [facility] MEDICINE [address] [place], [place] [phone] Name, MD Popeye [address] [place] [address] Appointment Request Social History Tobacco Use Types [...] 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 Pt wants to see pcp. Has been trying to get a Appointment with him for a while. Contact pt at [phone] documented in this encounter Plan of Treatment Upcoming Encounters Date Type Department Care Team (Late st Contact Info) Description 09/17/2025 9:00 AM EST Medication Management [facility] MED[facility]INE [address] [place] [address] Nora Johansen, PharmD [address] [place] [address] documented as of this encounter Visit Diagnoses Not on filedocumented in this encounter Additional Health Concerns Assessment Noted Time PHQ-9 Depression Total Score: 0 08/19/20 10:12 AM EDT documented as of this encounter Care Teams Word Processing Machine Operator Relationship Specialty Start Date End Date Name, MD Popeye [address] [place] [address] PCP - General Family Medicine 01/15/16 Nora Johansen, PharmD [address] [place] [phone] Pharmacist Internal Medicine 12/06/24 documented as of this encounter
--- OUTSIDE RECORDS SUMMARY | 2025-08-29 10:04 | XMS_ITS | Clinical Summary ---
Author Organization [facility] Address [address] [facility] [address] [place] [phone] Phone Care Team Providers Care Apple Solutions Consultant Name Role Phone Pcp, Not Required Primary [...] CROSS OUT OF STATE PPO OUT OF [facility] PPO OUT OF [facility] PPO OUT OF [facility] PPO Care Teams [employer] Consultant Relationship Specialty Start Date End Date Pcp, Not Required [address] [place] [phone] PCP - General 11/30/19 Additional Source Comments The information contained in this document represents components of the legal health record. It is not the complete legal health record.[facility]
--- OUTSIDE RECORDS SUMMARY | 2025-08-29 10:04 | XMS_ITS | Encounter Summary ---
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 Not on file documented as of this encounter Plan of Treatment Upcoming Encounters Date Type Department Care Team (Late st Contact Info) Description 09/17/2025 9:00 AM EST Medication Management [facility] MEDICINE [address] [place] [address] Nora Johansen PharmD [address] [place] [address] documented as of this encounter Visit Diagnoses Not on filedocumented in this encounter Additional Health Concerns Assessment Noted Time PHQ-9 Depression Total Score: 0 08/19/20 23 10:12 AM EDT documented as of this encounter Care Teams Electrolysis Engineer Relationship Specialty Start Date End Date Name, MD Popeye [address] [place] [address] PCP - General Family Medicine 01/15/16 Nora Johansen, PharmD [address] [place], [place] [phone] Pharmacist Internal Medicine 12/06/24 documented as of this encounter
--- OUTSIDE RECORDS SUMMARY | 2025-08-29 10:05 | XMS_ITS | Encounter Summary ---
Author Organization [employer] Address [address] [facility] [address]t [place] [address] Care Team Providers Care Cloth Laminating Supervisor Name Role Phone Name, Popeye ASIF Primary Care Provider [phone] Nora Johansen PharmD Unavailable [phone] Reason for Visit * Reason Onset Date Comments Med Refill 01/21/2024 Encounter Details Date Type Department Care Team (Late st Contact Info) Description 01/21/2024 Refill [facility] MED[facility] [address] [place], [place] [phone] Name, MD Popeye [address] [place] [address] Hypertension, unspecified type; Coronary artery disease involving tetlin coronary artery of tetlin heart without angina pectoris Social History Tobacco [...] 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 Not on file documented as of this encounter Plan of Treatment Upcoming Encounters Date Type Department Care Team (Late st Contact Info) Description 09/17/2025 9:00 AM EST Medication Management [facility] [address] [place] [address] Nora Johansen PharmD [address] [place] [address] documented as of this encounter Visit Diagnoses Diagnosis Hypertension, unspecified type Coronary artery disease involving tetlin coronary artery of tetlin heart without angina pectoris documented in this encounter Additional Health Concerns Assessment Noted Time PHQ-9 Depression Total Score: 0 08/19/20 23 10:12 AM EDT documented as of this encounter Care Teams Cloth Laminating Supervisor Relationship Specialty Start Date End Date Name, MD Popeye [address] [place] [address] PCP - General Family Medicine 01/15/16 Nora Johansen PharmD [address] [place] [phone] Pharmacist Internal Medicine 12/06/24 documented as of this encounter
--- OUTSIDE RECORDS SUMMARY | 2025-08-29 10:05 | XMS_ITS | Encounter Summary ---
Author Organization [employer] Address [address] [facility] [address]t h [address] [address] Care Team Providers Care Roofing Machine Operator Name Role Phone Name, Popeye ASIF Primary Care Provider [phone] Nora Johansen PharmD Unavailable [phone] Reason for Visit * Reason Onset Date Comments Med Refill 01/21/2024 Encounter Details Date Type Department Care Team ([facility] st Contact Info) Description 01/21/2024 Refill [facility] CHC MED & PEDS [address] [place] [address] Elisabeth Colon MD [address] [place] [address] Social History Tobacco Use Types Packs/Day Years [...] 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 Not on file documented as of this encounter Plan of Treatment Upcoming Encounters Date Type Department Care Team (Late st Contact Info) Description 09/17/2025 9:00 AM EST Medication Management [facility] MEDICINE [address] [place] [address] Nora Johansen, PharmD [address] [place] [address] documented as of this encounter Visit Diagnoses Not on filedocumented in this encounter Additional Health Concerns Assessment Noted Time PHQ-9 Depression Total Score: 0 08/19/20 23 10:12 AM EDT documented as of this encounter Care Teams Roofing Machine Operator Relationship Specialty Start Date End Date Name, MD Popeye [address] [place] [id number] PCP - General Family Medicine 01/15/16 Nora Johansen, PharmD [address] [place] [address] [phone] Pharmacist Internal Medicine 12/06/24 documented as of this encounter
[2025-08-29 11:58] LABS: Alanine Aminotransferase 21 U/L (0-40); Albumin Level 4.6 g/dL (3.5-5.0); Alkaline Phosphatase 72 U/L (39-117); Aspartate Amino Transferase 31 U/L (5-37); Cholesterol 170 mg/dL (<200); HDL Cholesterol 49 mg/dL (>40); Total Protein 7.9 g/dL (6.5-8.0); Triglycerides 156 mg/dL (<150)
[2025-08-29 12:22] LABS: Microalbum/Creatinine Ratio Ur 26.8 ug/mg cr (<30)
[2025-08-29 14:09] LABS: Reflex LDLD? No
== END 2025-08-29 09:15 | disposition home or self-care (01) ==
LOC: HO.HHCL 09:14
PROVIDERS: Urology; PCP Internal Medicine Geriatric Medicine; Visit Provider Internal Medicine Geriatric Medicine
DX: I25.2 Old myocardial infarction (principal); E11.9 Type 2 diabetes mellitus without complications; N32.89 Other specified disorders of bladder; R31.9 Hematuria, unspecified; N28.1 Cyst of kidney, acquired; E78.00 Pure hypercholesterolemia, unspecified; E78.1 Pure hyperglyceridemia
CPT/HCPCS: 36415; 80061; 80076; 82043; 82570; 83036

== ENCOUNTER 2025-10-16 05:53 | Day surgery (SDC) | payer BC, SELFPAY ==
--- OUTSIDE RECORDS SUMMARY | 2025-09-13 16:20 | XMS_ITS | Encounter Summary ---
Author Organization [email or web address] Address [address] [place] [address] 7t [place] [address] Care Team Providers Care Major General Name Role Phone Name, Popeye ASIF Primary Care Provider [phone] Nora Johansen PharmD Unavailable [phone] Encounter Details Date Type Department Care Team (Late st Contact Info) Description 11/25/2022 Orders Only [facility] CHC MED & PEDS [address] [place], [place] [phone] Loni Mejia LPN Social History Tobacco Use [...] Description 09/17/2025 9:00 AM EST Medication Management [facility] MEDICINE [address] [place] [address] Nora Johansen, PharmD [address] [place] [address] 01/22/2026 10:00 AM EDT Office Visit [facility] OPTOMETRY [address] [place] [address] Claudia Akbar, OD [address] [place] [address] documented as of this encounter Procedures Procedure Name Priority Date/Time Associated Diagnosis Comments T4, FREE Routine 08/19/2023 10:23 AM EDT documented in this encounter Results * T4, Free (08/19/2023 10:23 AM EDT) Free T4 (Free Thyroxine) 0.78 0.71 - 1.85 ng/dL [facility] 08/19/2023 10:2 3 AM EDT 08/19/2023 11:33 AM EDT us Popeye Name LAB BLOOD ORDERABLES Final Resul t [facility] [address] [place] [address] [phone] documented in this encounter Visit Diagnoses Not on filedocumented in this encounter Care Teams Major General Relationship Specialty Start Date End Date Name, MD Popeye [address] [place] [address] PCP - General Family Medicine 01/15/16 Nora Johansen PharmD [address] [place] [phone] Pharmacist Internal Medicine 12/06/24 documented as of this encounter
--- OUTSIDE RECORDS SUMMARY | 2025-09-13 16:20 | XMS_ITS | Encounter Summary ---
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 Not on file documented as of this encounter Plan of Treatment Upcoming Encounters Date Type Department Care Team (Late st Contact Info) Description 09/17/2025 9:00 AM EST Medication Management [facility] MEDICINE [address] [place] [address] Nora Johansen PharmD [address] [place] [address] 01/22/2026 10:00 AM EDT Office Visit [facility] OPTOMETRY [address] [place], [place] [phone] Tarka, Claudia, OD [address] [place] [address] documented as of this encounter Visit Diagnoses Not on filedocumented in this encounter Additional Health Concerns Assessment Noted Time PHQ-9 Depression Total Score: 0 08/23/20 25 9:32 AM EDT documented as of this encounter Care Teams Sharepoint Designer Developer Relationship Specialty Start Date End Date Name, MD Popeye [address] [place] [address] [phone] PCP - General Family Medicine 01/15/16 Nora Johansen PharmD [address] [place] [address] [phone] Pharmacist Internal Medicine 12/06/24 documented as of this encounter
--- OUTSIDE RECORDS SUMMARY | 2025-09-13 16:20 | XMS_ITS | Encounter Summary ---
Author Organization [employer] Address [address] [facility] 7t [place] [address] Care Team Providers Care Professional Architect Name Role Phone Name, Popeye ASIF Primary Care Provider [phone] Nora Johansen PharmD Unavailable [phone] Reason for Visit * Reason Onset Date Comments Appointment Request 11/28/2024 Encounter Details Date Type Department Care Team ([facility] Contact Info) Description 11/28/2024 Telephone [facility] MEDICINE [address] [place], [place] [phone] Name, MD Popeye [address] [place] [address] Appointment Request Social History Tobacco Use Types [...] 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 Pt wants to see pcp. Has been trying to get a Appointment with him for a while. Contact pt at [phone] documented in this encounter Plan of Treatment Upcoming Encounters Date Type Department Care Team (Late st Contact Info) Description 09/17/2025 9:00 AM EST Medication Management [facility] MEDICINE [address] [place] [address] Nora Johansen, PharmD [address] [place] [address] 01/22/2026 10:00 AM EDT Office Visit [facility] OPTOMETRY [address] [place] [address] Claudia Akbar, OD [address] [place] [address] documented as of this encounter Visit Diagnoses Not on filedocumented in this encounter Additional Health Concerns Assessment Noted Time PHQ-9 Depression Total Score: 0 08/19/20 23 10:12 AM EDT documented as of this encounter Care Teams Professional Architect Relationship Specialty Start Date End Date Name, MD Popeye [address] [place] [address] PCP - General Family Medicine 01/15/16 Nora Johansen, Maddie [address] [place] [address] Pharmacist Internal Medicine 12/06/24 documented as of this encounter
--- OUTSIDE RECORDS SUMMARY | 2025-09-13 16:21 | XMS_ITS | Encounter Summary ---
Author Organization [employer] Address [address] [facility] 7t [place] [address] Care Team Providers Care Circus Roustabout Name Role Phone Name, Popeye ASIF Primary Care Provider [phone] Nora Johansen PharmD Unavailable [phone] Reason for Visit * Reason Onset Date Comments Med Refill 01/21/2024 Encounter Details Date Type Department Care Team ([facility] st Contact Info) Description 01/21/2024 Refill [facility] CHC MED & PEDS [address] [place] [address] Elisabeth Colon MD [address] [place] [address] Social History Tobacco Use Types Packs/Day Years [...] 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 Not on file documented as of this encounter Plan of Treatment Upcoming Encounters Date Type Department Care Team (Late st Contact Info) Description 09/17/2025 9:00 AM EST Medication Management [facility] MEDICINE [address] [place] [address] Nora Johansen PharmD [address] [place] [address] 01/22/2026 10:00 AM EDT Office Visit [facility] OPTOMETRY [address] [place] [address] Tarka, Claudia, OD [address] [place] [address] documented as of this encounter Visit Diagnoses Not on filedocumented in this encounter Additional Health Concerns Assessment Noted Time PHQ-9 Depression Total Score: 0 08/19/20 23 10:12 AM EDT documented as of this encounter Care Teams Circus Roustabout Relationship Specialty Start Date End Date Name, MD Popeye [address] [place] [id number] PCP - General Family Medicine 01/15/16 Nora Johansen, PharmD [address] [place] [phone] Pharmacist Internal Medicine 12/06/24 documented as of this encounter
--- OUTSIDE RECORDS SUMMARY | 2025-09-13 16:21 | XMS_ITS | Clinical Summary ---
Author Organization [facility] Address [address] [facility] [address] [place] [phone] Phone Care Team Providers Care Assistant At Surgery Name Role Phone Pcp, Not Required Primary [...] OF STATE PPO OUT OF [facility] PPO OUT OF [facility] PPO OUT OF [facility] PPO Care Teams Assistant At Surgery Relationship Specialty Start Date End Date Pcp, Not Required [address] [place] [phone] PCP - General 11/30/19 Additional Source Comments The information contained in this document represents components of the legal health record. It is not the complete legal health record.[facility]
--- OUTSIDE RECORDS SUMMARY | 2025-09-13 16:21 | XMS_ITS | Encounter Summary ---
Author Organization [employer] Address [address] [facility] 7t [place] [address] Care Team Providers Care Director Radiation Oncology Name Role Phone Name, Popeye ASIF Primary Care Provider [phone] Nora Johansen PharmD Unavailable [phone] Reason for Visit * Reason Onset Date Comments Med Refill 01/21/2024 Encounter Details Date Type Department Care Team (Late st Contact Info) Description 01/21/2024 Refill [facility] MEDICINE [address] [place], [place] [phone] Name, MD Popeye [address] [place] [address] Hypertension, unspecified type; Coronary artery disease involving [place] coronary artery of [place] heart without angina pectoris Social History Tobacco [...] 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 file Not on file documented as of this encounter Plan of Treatment Upcoming Encounters Date Type Department Care Team (Late st Contact Info) Description 09/17/2025 9:00 AM EST Medication Management [facility] MEDICINE [address] [place] [address] Nora Johansen, PharmD [address] [place] [address] 01/22/2026 10:00 AM EDT Office Visit [facility] OPTOMETRY [address] [place] [address] TarkaClaudia, OD [address] [place] [address] documented as of this encounter Visit Diagnoses Diagnosis Hypertension, unspecified type Coronary artery disease involving [place] coronary artery of [place] heart without angina pectoris documented in this encounter Additional Health Concerns Assessment Noted Time PHQ-9 Depression Total Score: 0 08/19/20 10:12 AM EDT documented as of this encounter Care Teams Director Radiation Oncology Relationship Specialty Start Date End Date Name, MD Popeye [address] [place] [address] PCP - General Family Medicine 01/15/16 Nora Johansen, SamuelD [address] [place] [phone] Pharmacist Internal Medicine 12/06/24 documented as of this encounter
--- OUTSIDE RECORDS SUMMARY | 2025-09-13 16:21 | XMS_ITS | Clinical Summary ---
Author Organization [employer] Address [address] [place] [address] Care Team Providers Care Associate Professor Of Art History Name Role Phone Name, Popeye ASIF Primary Care Provider [phone] Nora Johansen PharmD Unavailable [phone] Allergies Active Allergy Reactions Criticality Noted Date Comments Atorvastatin 10/03/2019 Other reaction(s): Rhabdomyolysis Medications Blood Pressure kitIndications:Typ e 2 diabetes mellitus without complication, without long-term current use of insulin ([facility]),Essential hypertension Use to check home BP daily as directed 1 kit 5 Active empagliflozin (Jardiance) 10 MGIndications:Type 2 diabetes mellitus without complication, without long-term current use of insulin ([facility]),Microalbumin uria Take 1 tablet (10 mg) by mouth Once per day. 90 tablet 3 09/05/2025 11:20 AM EST 5 12/06/19 26 Active Icosapent Ethyl (Vascepa) 1 g capsuleIndications :Type 2 diabetes mellitus without complication, without long-term current use of insulin ([facility]),Statin intolerance,Histor y of rhabdomyolysis due to statin,History of CAD (coronary artery disease),High cholesterol Take 2 capsules (2 g) by mouth with breakfast and with evening meal. 120 capsule 11 5 12/06/19 26 Active levothyroxine (Synthroid) 75 MCG tablet Take 1 tablet (75 mcg) by mouth before breakfast. 30 tablet 11 09/05/2025 11:20 AM EST 5 02/02/20 26 Active evolocumab (Repatha SureClick) 140 MG/ML injectionIndicatio ns:Type 2 diabetes mellitus without complication, without long-term current use of insulin ([facility]),Hypertriglyc eridemia,High cholesterol,Histor y of IL (myocardial infarction) Inject 1 mL (140 mg) under the skin every 14 (fourteen) days. 2 mL 5 5 Active metoprolol tartrate (Lopressor) 25 MG tabletIndications: Essential hypertension,Histo ry of IL (myocardial infarction) Take 1 tablet (25 mg) by mouth 2 times daily. 180 tablet 3 09/05/2025 11:20 AM EST 5 Active losartan (Cozaar) 25 MG tabletIndications: Type 2 diabetes mellitus without complication, without long-term current use of insulin ([facility]),Essential hypertension,Histo ry of IL (myocardial infarction) Take 1 tablet (25 mg) by mouth Once per day. 90 tablet 3 09/05/2025 11:20 AM EST 5 06/08/20 26 Active aspirin (Aspirin Low Dose) 81 MG EC tabletIndications: Type 2 diabetes mellitus without complication, without long-term current use of insulin ([facility]),History of [place] (myocardial infarction) Take 1 tablet (81 mg) by mouth Once per day. 90 tablet 3 09/05/2025 11:20 AM EST 5 Active Active Problems Problem Noted Date [...] kidney disease) stage 3, GFR 30-59 ml/min ([facility]) 12/22/2017 08/19/2023 Essential hypertension 12/22/2017 3 Obesity (BMI 30-39.9) 12/22/2017 11/17/2023 Hypertriglyceridemia 04/11/2010 08/19/2023 Encounters Date Type Department Care Team Description 09/13/2025 Travel 08/29/2025 Orders Only GENERIC EXTERNAL DATA DEPARTMENT Provider, Generic External Data 08/23/2025 9:15 AM EDT Office Visit [facility] [address] [place] [address] Popeye Hernadez MD Type 2 diabetes mellitus without complication, without long-term current use of insulin (HCC) (Primary Dx); Coronary arteriosclerosis; Encounter for immunization 08/23/2025 Travel 08/22/2025 Telephone [facility] [address] [place] [address] Popeye Hernadez MD Chart Prep 08/16/2025 Patient Outreach [facility] [address] [place], [place] [phone] Popeye Hernadez MD Pre-visit Planning ([facility] unable to reach [facility] ) 08/16/2025 Patient Outreach [facility] [address] [place] [address] Popeye Hernadez MD 08/16/2025 Travel 06/28/2025 Orders Only GENERIC EXTERNAL DATA DEPARTMENT Provider, Generic External Data from Last 3 Months Immunizations Immunization Administration Dates Next Due Influenza injectable quadrivalent preservative f ree 08/13/2020,09/24/2015 Influenza, High Dose Seasonal, Preservative Free 08/23/2025 Influenza, IIV3, injectable 09/24/2015 Influenza, seasonal, injectable, preservative fr ee 12/26/2024 Tdap 07/31/2024,04/23/2014 Social History Tobacco Use Types Packs/Day Years Used Date Smoking Tobacco: Former Cigarettes Q uit: 2010 Smokeless Tobacco: Never Tobacco Cessation:Counseling Given: Not [...] 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 Not on [...] Description 09/17/2025 9:00 AM EST Medication Management [facility] [address] [place] [phone] Nora Johansen, PharmD [address] [place] [address] 01/22/2026 10:00 AM EDT Office Visit [facility] [address] [place] [address] Claudia Akbar, OD [address] [place] [address] Health Maintenance Due Date Last Done Comments CT Colonography 1960 Colonoscopy 1960 FIT 1960 Sigmoidoscopy 1960 Hepatitis C Screening 02/28/1978 Pneumococcal Vaccine: 50+ Years (1 of 2 - PCV) 02/28/1979 RSV Patients and Patients Aged 60 years or older (1 - Risk 50-74 years 1-dose series) 02/28/2010 Zoster Vaccines (1 of 2) 02/28/2010 Diabetes: Foot Exam 11/17/2024 11/17/2023, 11/17/2023, 11/17/2023, Additional history exists COVID-19 Vaccine ( season) 2025 08/21/2021, 02/16/2021, 01/27/2021 SDOH Screening 12/26/2025 12/26/2024 Diabetes: Hemoglobin A1C 02/26/2026 025, 06/08/2025, 12/06/2024, Additional history exists FOBT 04/23/2026 04/23/2025, 03/19/2022 Alcohol/Substance Use Screening 08/23/2026 08/23/2025 Depression Screening 08/23/2026 08/23/2025, 08/23/20 25 Tobacco Screening 08/23/2026 08/23/2025 Diabetes: Urine Protein Screening 08/29/2026 08/29/2025, 04/24/2025, 04/24/2025, Additional history exists Lipid Panel 08/29/2026 08/29/2025, 07/0 10/2024, 02/01/2025, Additional history exists Eye Exam 11/17/2026 11/17/2024, [...] Procedure Name Priority Date/Time Associated Diagnosis Comments ALBUMIN, RANDOM URINE W/CREATININE Routine 08/29/2025 9:38 AM EST LIPID PANEL WITH REFLEX TO DIRECT LDL Routine 08/29/2025 9:38 AM EST HEPATIC FUNCTION PANEL Routine 08/29/2025 9:38 AM EST HEMOGLOBIN A1C Routine 08/29/2025 9:38 AM EST POCT GLUCOSE Routine 08/23/2025 9:40 AM EDT Type 2 diabetes mellitus without complication, without long-term current use of insulin (HCC) CYTOPATH-CELL ENHANCED Routine 06/28/2025 5:33 PM EDT LAB COLOGUARD COLON CANCER SCREEN Routine 04/23/2025 12:30 PM EDT Screening for colon cancer from Last 3 Months or Most Recently Relevant to Health Maintenance Results * (ABNORMAL) Lipid Panel with Reflex to Direct LDL (08/29/2025 9:38 AM EST) Triglycerides 156(H) <150 mg/dL [facility] Comment:Desirable Triglyceri de: less than 150 mg/dLBorderline High Triglyceride 150-199 mg/dLHigh Triglyceride: 200-499 mg/dLVery High Triglyceride: greater than or equal to 5OO mg/dL Cholesterol 170 <200 mg/dL [facility] Comment:Desirable Cholestero l: less than 200 mg/dLBorderline High Cholesterol: 200-239 mg/dLHigh Cholesterol: greater than 239 mg/dL LDL Cholesterol Calculated 90 <100 mg/dL [facility] Comment:Desirable LDL: less than 100 mg/dLNear Optimal/Above Optimal LDL: 110- 129 mg/dLBorderline High LDL: 130-159 mg/dLHigh LDL: 160-189 mg/dLVery High LDL: greater than or equal to 190 mg/dL HDL Cholesterol 49 >40 mg/dL [facility] Comment:Desirable HDL: great er than 40 mg/dL Note: This HDL assay may give artificially low results in patients with liver disease. 08/29/2025 9:38 AM EST 08/29/2025 11:03 AM EST us Popeye Name LAB BLOOD ORDERABLES Final Resul t [facility] [address] [place] [phone] * Albumin, Random Urine W/Creatinine (08/29/2025 9:38 AM EST) Creatinine, Urine 89.29 mg/dL [facility] Microalbumin Urine 24.0 mg/L [facility] Microalbum Creatinine Ratio Ur 26.8 <30 ug/mg cr [facility] Comment:Albumin/Creatinine R atio Reference Ranges: Normal: < 30 ug/mg creatinine Microalbuminuria: 30 - 300 ug/mg creatinineClinical Albuminuria: > 300 ug/mg creatinine 08/29/2025 9:38 AM EST 08/29/2025 11:19 AM EST us Popeye Hernadez MD LAB URINE ORDERABLES Final Resul t Performing Organization Address [facility] Co de Phone Number [facility] [address] [place] [phone] * Hemoglobin A1c (08/29/2025 9:38 AM EST) Hemoglobin A1c 5.5 <6.0 % [facility] Comment:Hemoglobin A1C Refer ence Range Adults: 4.8 - 6.0 % Non diabetic: < 6.0 % Goal: < 7.0 %Additional Action Suggested: > 8.0 %Note: Hemoglobin A1c results are invalid for patients with abnormal amounts of HbF. Blood transfusions may impact the HbA1c concentration in the patient sample. Estimated Average Glucose 111 mg/dL [facility] Comment:eAG = Estimated ave rage glucose which is %A1C expressed asaverage glucose, using the formula of the P6C-TcdjwpdYsirqml Glucose study (ADAG), Diabetes Care, Vol.31,#8,2007 08/29/2025 9:38 AM EST 08/29/2025 11:03 AM EST us Generic External Data Provider LAB BLOOD ORDERAB LES Final Result Performing Organization Address City/[facility]/ZIP Co de Phone Number [facility] [address] [place] [phone] * Hepatic Function Panel (08/29/2025 9:38 AM EST) Bilirubin, Total 0.9 0.0 - 1.0 mg/dL [facility] Bilirubin, Direct 0.3 0.0 - 0.5 mg/dL [facility] Aspartate Amino Transferase 31 5 - 37 U/L [facility] Alanine Aminotransferase 21 0 - 40 U/L [facility] Total Protein 7.9 6.5 - 8.0 g/dL [facility] Albumin Level 4.6 3.5 - 5.0 g/dL [facility] Alkaline Phosphatase 72 39 - 117 U/L [facility] 08/29/2025 9:38 AM EST 08/29/2025 11:03 AM EST us Popeye Hernadez MD LAB BLOOD ORDERABLES Final Resul t [facility] [address] [place] [phone] * POCT Glucose (08/23/2025 9:40 AM EDT) Glucose Blood, POC 139 60 - 200 mg/dL QC Media Lot # [id number] Lot# Expiration Date Blood Capillary blood specimen / Unknown 08/23/2025 9:40 AM EDT us Popeye Hernadez MD POINT OF CARE TEST ENTER/EDIT OR DERABLES Final Result * Cytopath-cell enhanced (06/28/2025 5:33 PM EDT) 06/28/2025 5:33 PM EDT 06/29/2025 8:30 AM EDT Narrative [facility] - 07/02/2025 9:22 AM EDT ----- ------- Name: Isidro Vance Age/Sex: 65/M : 1960 Unit#: [id number] Attend Dr: Shahla Alan MD Re06/28/25 Status: DEP REF Location: .LAB Disch: ----- ------- SPEC : [id number] RECD: 06/29/25 STATUS: JEFFREY MCDONOUGH NUM: [id number] EZ: 06/28/[address] [facility] [address]: Shahla Alan MD ENTERED: 06/29/25 SP TYPE: Cytology OTHR DR: Popeye Hernadez MD ORDERED: Cyto-enhanced Diagnosis [...] developed and their performance characteristics determined by [facility]. They have not been cleared or approved by the U.S. Food and Drug Administration (FDA). However, the FDA has determined that such clearance or approval is not necessary. This laboratory is certified under the Clinical Laboratory Improvement Amendments of 1988 (CLIA) as qualified to perform high complexity clinical laboratory testing. Copies To: Shahla Alan MD [facility] [address] [place] [address] [address] [place] [address] [email or web address] Local Name,Popeye ASIF [address] [phone] CONTINUED ON NEXT PAGE ----- ------- Name: Isidro Vance Age/Sex: 65/M : 1960 Unit#: [id number] Attend Dr: Shahla Alan MD Re06/28/25 Status: DEP REF Location: [facility] Disch: ----- ------- SPEC : [id number] RECD: 06/29/25 STATUS: JEFFREY MCDONOUGH NUM: [id number] EZ: 06/28/25-1732 [facility] [address]: Shahla Alan MD ENTERED: 06/29/25 SP TYPE: Cytology OTHR DR: Popeye Hernadez MD ORDERED: Cyto-enhanced ----- ------- Signed (signature on file) Renea [place] 07/02/25921 ----- ------- END OF REPORT us Generic External Data Provider LAB CYTOLOGY FELICIANO GONZALEZ Final Result [facility] [address] [place] [phone] * Cologuard?? colon cancer screening (04/23/2025 12:30 PM EDT) Cologuard Result Negative Negative 04/27/20 12:34 AM EDT [facility] (CLIA #:[id number]) Comment: The Cologuard (TM) test was performed [...] screened with both Cologuard and colonoscopy. (Brie Rosenberg. et al, N Engl J Med 2014;370(14):1286- 1297) The normal value (reference range) for this assay is negative. COLOGUARD RE-SCREENING RECOMMENDATION: Periodic colorectal cancer screening is an important part of preventive healthcare for asymptomatic individuals at average risk for colorectal cancer. Following a negative Cologuard result, the [place] Cancer Society and U.S. Multi-Society Task Force screening guidelines recommend a Cologuard re-screening interval of 3 years. References: [place] Cancer Society Guideline for Colorectal Cancer Screening: https://www.cancer.org/cancer/kwdnf-uswnyp-ziiyam/kkvdeiybu-bmxxdpjns-cyvnkuz/ac s-rec ommendations.html.; Remi MARQUEZ, Es RIBEIRO, Rebecca SANTANA, Colorectal Cancer Screening: Recommendations for Physicians and Patients from the U.S. Multi-Society Task Force on Colorectal Cancer Screening , Am J Gastroenterology 2017; 112:7693-2439. TEST DESCRIPTION: Composite algorithmic analysis of stool [...] (Brie Stephen al, N Engl J Med 2014;370(14):1715-3125.) Cologuard may produce a false negative or false positive result (no colorectal cancer or precancerous polyp present at colonoscopy follow up). A negative Cologuard test result does not guarantee the absence of CRC or advanced adenoma (pre-cancer). The current Cologuard screening interval is every 3 years. ([employer] Cancer Society and U.S. Multi-Society Task Force). Cologuard performance data in a 10,000 patient pivotal study using colonoscopy as the reference method can be accessed at the following location: www.[employer]/results. Additional description of the Cologuard test process, warnings and precautions can be found at www.[employer].com. Stool specimen (specimen) 04/23/2025 12:30 PM EDT 04/24/2025 10:38 AM EDT us Popeye Hernadez MD LAB MOLECULAR DIAGNOSTICS ORDERA BLES Final Result [facility] (CLIA #:[id number]) [address] [place] [address], from Last 3 Months or Most Recently Relevant to Health Maintenance Insurance BCBS PPO Care Teams Associate Professor Of Art History Relationship Specialty Start Date End Date Name, MD Popeye [address] [place] [address] PCP - General Family Medicine 01/15/16 Nora Johansen PharmD [address] [place] [address] Pharmacist Internal Medicine 12/06/24
--- OUTSIDE RECORDS SUMMARY | 2025-09-13 16:21 | XMS_ITS | Data Portability ---
Author Organization [employer] [facility], [address] Address [address] [place] [address] Assessment No assessment recorded. Plan of Treatment [...] OC-BAT Screening Template DOT completed RUPAL CUEVAS [employer] [facility] 05/17/2023 09:58:29 3 OC-UDS Send Out Template DOT completed RUPAL CUEVAS [employer] [facility] 05/17/2023 09:57:22 Imaging Results None recorded. Procedure Notes None recorded. Medical Equipment None Reported. Vitals None Recorded Social History None recorded. Functional Status None recorded. Mental Status None recorded. Family History Nothing Reported. Medical History No medical history recorded. Past Encounters Encounter ID Performer Location Encounter Start Date Encounter Closed Date Diagnosis/Indication Diagnosis SNOMED-CT Code Diagnosis ICD10 Code Diagnosis IMO Codes Diagnosis Note [id number] [address] [place] [address] 06/20/2020 11:27:09 06/20/2020 13:53:53 [id number] [address] [place] [address] 05/07/2022 14:27:19 05/07/2022 14:59:58 [id number] [address] [place] [address] 03/03/2019 12:56:00 03/03/2019 14:47:09 [id number] [place] [address] 08/27/2022 09:37:46 08/27/2022 19:58:16 [id number] [address] [place] [address] 03/05/2021 13:59:30 03/05/2021 14:20:24 [id number] [place] [address] 03/14/2020 13:12:13 03/14/2020 14:50:17 [id number] [address] [place] [address] 05/09/2021 13:43:20 05/09/2021 15:46:51 [id number] [place] [address] 08/28/2021 11:03:54 08/28/2021 12:38:25 [id number] [place] [address] 06/04/2020 18:12:29 06/04/2020 20:10:25 [id number] [address] [place] [address] 12/25/2021 11:24:37 12/25/2021 13:48:05 [id number] [address] [place] [address] 08/30/2020 14:39:50 08/30/2020 15:38:24 [id number] [address] [place] [address] 03/27/2022 14:00:57 03/27/2022 14:49:23 [id number] Enrique Curry, [employer]PER[employer] [address] [place] [address] 05/17/2023 08:37:18 05/17/2023 10:00:39 History and physical examination, occupation 187659881 Z02.1 Health Concerns Section Related Observation LastModified by Organization Detai ls LastModified Time None Recorded Concern Status LastModified by Organization Details LastModified Time None Recorded Advance Directives Directive None Recorded Payers Insurance Date Sequence Insurance Name Policy Number Policy Eduardo Covered Member ID Eduardo Member ID Guarantor Name 05/17/2023 OC-ESCREEN Isidro Vance [id number] Tor[employer] Isidro Vance
--- OUTSIDE RECORDS SUMMARY | 2025-09-13 16:21 | XMS_ITS | Encounter Summary ---
Author Organization [employer] Address [address] [place] [address] [address] [place] [address] Care Team Providers Care General Passenger Agent Name Role Phone Name, Popeye ASIF Primary Care Provider [phone] Nora Johansen PharmD Unavailable [phone] Encounter Details Date Type Department Care Team ([facility] st Contact Info) Description 09/08/2024 Orders Only [facility] [address] [place], [place] [phone] Juan Carlos Muhammad MD [address] [place] [address] Social History Tobacco Use Types Packs/Day Years [...] 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 Not on file documented as of this encounter Plan of Treatment Upcoming Encounters Date Type Department Care Team (Late st Contact Info) Description 09/17/2025 9:00 AM EST Medication Management [facility] [address] [place] [address] Nora Johansen PharmD [address] [place] [address] 01/22/2026 10:00 AM EDT Office Visit [facility] [address] [place] [address] TarkaClaudia, OD [address] [place] [address] documented as of this encounter Visit Diagnoses Not on filedocumented in this encounter Additional Health Concerns Assessment Noted Time PHQ-9 Depression Total Score: 0 08/19/20 23 10:12 AM EDT documented as of this encounter Care Teams General Passenger Agent Relationship Specialty Start Date End Date Name, MD Popeye [address] [place] [phone] PCP - General Family Medicine 01/15/16 Nora Johansen PharmD [address] [place] [phone] Pharmacist Internal Medicine 2/12/25 documented as of this encounter
--- NOTE | 2025-10-11 13:08 | HO.ANESPROP2 ---
Documented by User: Jacinda Murrell NP 10/12/25 11:55 HPI - Anesthesia Eval Consult details Narrative: 65yo M for Circumcision Anesthesia Pre-Procedure Meds Is the patient on any of the following meds?: SGLT2 Inhib PMFSH Active Problems Active Problems: All Active Problems Hematuria (Acute) BPH (benign prostatic hyperplasia) (Acute) Balanitis (Acute) Renal cyst (Acute) Bladder wall thickening (Acute) History of nicotine dependence (Acute) Gross hematuria (Acute) Past Medical History Medical History Hypothyroidism HTN (hypertension) Hypercholesteremia Diabetes Surgical History Surgical History Hx of colonoscopy Social History Social History Household Members: Spouse Housing: House Patient Tobacco Use Status: Never used Tobacco Use of substances other than those prescribed or required for medical reasons: No Have you been hit, kicked, punched, or otherwise hurt by someone within the past year? If so, by whom?: No Are you DNR?: No Advance Directives: No Advance Directives Information Provided: Yes Advance Directives on File: No Meds Allergies Allergy/AdvReac Type Severity Reaction Status Date / Time No Known Allergies (No Known Allergy Verified 10/12/25 12:44 Allergies*) Home Medications ?Medication ?Instructions ?Recorded ?Confirmed ?Last Taken ?Type aspirin 81 mg tablet,delayed 81 mg PO DAILY 08/02/24 10/12/25 10/09/25 History release losartan 25 mg tablet 25 mg PO DAILY 08/02/24 10/12/25 Unknown History metoprolol tartrate 25 mg tablet 25 mg PO BID 08/02/24 10/12/25 Unknown History empagliflozin 10 mg tablet 10 mg PO QAM 10/12/25 10/12/25 10/09/25 History (Jardiance) levothyroxine 75 mcg tablet 75 mcg PO DAILY 10/12/25 10/16/25 10/16/25 History Exam Pertinent Lab Results Pertinent Lab Results: Laboratory Tests 04/24/25 11:30 Sodium 140 Potassium 4.3 Chloride 104 Carbon Dioxide 29 BUN 19 H Creatinine 1.05 Assessment and Plan Assessment Anesthesia Assessment: Chart Reviewed Documented by User: Jcarlso Tee MD 10/16/25 07:22 PMFSH Past Medical History Medical History Hypothyroidism HTN (hypertension) Hypercholesteremia Diabetes Functional capacity: independent ambulation Family History Family history of problems with anesthesia: No Surgical History Surgical History Hx of colonoscopy History of Problems with Anesthesia: No Social History Social History Household Members: Spouse Housing: House Patient Tobacco Use Status: Never used Tobacco Use of substances other than those prescribed or required for medical reasons: No Have you been hit, kicked, punched, or otherwise hurt by someone within the past year? If so, by whom?: No Are you DNR?: No Advance Directives: No Advance Directives Information Provided: Yes Advance Directives on File: No Meds Allergies Allergy/AdvReac Type Severity Reaction Status Date / Time No Known Allergies (No Known Allergy Verified 10/12/25 12:44 Allergies*) Home Medications ?Medication ?Instructions ?Recorded ?Confirmed ?Last Taken ?Type aspirin 81 mg tablet,delayed 81 mg PO DAILY 08/02/24 10/12/25 10/09/25 History release losartan 25 mg tablet 25 mg PO DAILY 08/02/24 10/12/25 Unknown History metoprolol tartrate 25 mg tablet 25 mg PO BID 08/02/24 10/12/25 Unknown History empagliflozin 10 mg tablet 10 mg PO QAM 10/12/25 10/12/25 10/09/25 History (Jardiance) levothyroxine 75 mcg tablet 75 mcg PO DAILY 10/12/25 10/16/25 10/16/25 History Exam Exam Date and Time: 10/16/25 Airway TM Dist: >3cm Neck ROM: Full Loose/Missing/Broken Teeth: Yes (edentulous) Heart: normal Lungs: normal Other: normal Assessment and Plan Assessment Anesthesia Assessment: Anesthesia Plan Discussed and Smoking Cess. Discussed Final Anesthetic Review Family History of Problems with Anesthesia: No History of Problems with Anesthesia: No NPO: Yes ASA Class: II Final Preanesthetic Review: No Changes in Pt Med Stat, Meds/Allgs Chart Reviewed, Consent Obtained/Reviewed and Anes Risks/Benef Reviewed Patient Risk: Intermediate Procedure Risk: Low Anesthetic Plan Anesthetic Plan: GA Disposition: Standard PACU
[2025-10-12 12:45] VITALS: BMI 28.1
[2025-10-16 06:09] VITALS: BMI 28.4
[2025-10-16 06:30] VITALS: BP 145/76; PULSE 54; RESP 16; TEMP 36.6; O2SAT 99
[2025-10-16 06:30] LABS: Glucose, Whole Blood 123 mg/dL (60-115)
[2025-10-16] MEDS: Lactated Ringers 1,000 ML 100 ML IVCONT (06:31)
--- NOTE | 2025-10-16 07:34 | MHC.SHP ---
Pre-Procedural Eval Section A - 24 Hr Update-Section A only Date of Service: 10/16/25 The patient is an INPATIENT: No The patient has been examined within 24 hours of the surgical procedure. The History & Physical has been completed within 30 days and I have reviewed it.: Yes Section B - Complete if H&P > 30 days Chief Complaint: Balanitis Allergies: Allergies Allergy/AdvReac Type Severity Reaction Status Date / Time No Known Allergies (No Known Allergy Verified 10/12/25 12:44 Allergies*) Plan Diagnosis/Plan: Unchanged I have reviewed the history and physical and performed a pertinent physical examination on my patient. No changes have occurred unless specified. Balanitis. Plan Circumcision. Discussed risks to include but not limited to infection, bleeding. Time Spent With Patient Time: Total time managing care of this patient today ____ minutes.
--- NOTE | 2025-10-16 07:35 | W.PM.OPN ---
Operative Note Operative Note Date of Service: 10/16/25 Narrative: PreOperative Diagnosis:? ? Recurrent Balanitis Post Operative Diagnosis:?Recurrent Balanitis Procedure:?Circumcision Surgeon:?Dr Shahla Alan Anesthesia:? General Procedure: After informed consent was verified the patient was brought to the operating room and placed in a supine position.? Anesthesia was performed per protocol. The patient was prepped and draped in the usual sterile fashion. Safety pause time-out was performed. Antibiotics confirmed. Penile block was performed. With the foreskin over the glans a circumferential incision is made at the level of the nieves. The fore skin was then retracted and a circumferential incision was made 0.5 cm below the nieves. The foreskin is removed with cautery. The skin is closed in 4 quadrants with 4-0 chromic, the quadrants were closed with interrupted and running 4-0 chromic, bacitracin ointment was used over the incision and incision covered with cling. The patient tolerated the procedure well and was transferred to the recovery area upon completion. Complications: None EBL: minimal (<5 mL)
[2025-10-16 09:46] VITALS: BP 126/80; PULSE 64; RESP 14; TEMP 36.2; O2SAT 100
[2025-10-16 09:50] VITALS: BP 116/68; PULSE 66; RESP 12; O2SAT 99
[2025-10-16 09:55] VITALS: BP 111/59; PULSE 67; RESP 12; O2SAT 98
[2025-10-16 10:00] VITALS: BP 117/66; PULSE 68; RESP 12; O2SAT 97
[2025-10-16 10:10] VITALS: BP 107/67; PULSE 66; RESP 13; TEMP 36.2; O2SAT 97
== END 2025-10-16 11:37 | disposition home or self-care (01) ==
PROVIDERS: PCP Internal Medicine Geriatric Medicine; Visit Provider Urology
PROC: (CPT 54161; principal; 2025-10-16 07:30)
DX: N48.1 Balanitis (principal); N32.89 Other specified disorders of bladder; N28.1 Cyst of kidney, acquired; N40.0 Benign prostatic hyperplasia without lower urinary tract symptoms; R31.29 Other microscopic hematuria; I10 Essential (primary) hypertension; E78.00 Pure hypercholesterolemia, unspecified; E11.9 Type 2 diabetes mellitus without complications; E03.9 Hypothyroidism, unspecified; Z79.82 Long term (current) use of aspirin; Z79.84 Long term (current) use of oral hypoglycemic drugs; Z79.899 Other long term (current) drug therapy; Z87.891 Personal history of nicotine dependence
CPT/HCPCS: 54161; 82947; 88304; J0131; J0690; J1171; J2003; J2371; J2405; J2704; J2795; J3010

== ENCOUNTER → 2025-10-16 05:53 | Outpatient (BNV) | payer BC, SELFPAY | PROVIDERS: PCP Internal Medicine Geriatric Medicine; Visit Provider Urology | DX: N48.1 Balanitis (principal) | CPT/HCPCS: 54161 ==